=== PATIENT | male | born 1950 | race Caucasian/White ===

== ENCOUNTER 2018-11-27 13:23 | Emergency (ER) | payer MEDICARE, OTHER ==
[~2018-11-27] VITALS: Ht 195.6 cm; Wt 84.8 kg
[~2018-11-27 13:23] MED LIST: AMLO10TA4 PO; CHOL500050 PO; DOCU-109 PO; GLUC1CAP48 PO; LEVE500T56 PO; METO1TAB11 PO; MULT-245 PO; NAPR-683 PO; OLAN10VI2 IM; OMEP20CA5 PO; PHEN100C PO; POLY17PO5 PO; SIMV20TA PO; TRIA1TAB2 PO
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
[2018-11-27 13:53] LABS: BASO % 1 % (0-3); EOS # 0.1 x10^3/uL (0.0-0.7); EOS % 2 % (0-3); HEMATOCRIT 37.1 % (39.0-53.0); HEMOGLOBIN 12.7 g/dL (13.0-17.5); LYMPH # 1.7 x10^3/uL (1.0-4.8); LYMPH % 28 % (24-48); MEAN CORPUSCULAR HEMOGLOBIN 33 pg (25-35); MEAN CORPUSCULAR HGB CONC 34 g/dL (31-37); MEAN CORPUSCULAR VOLUME 96 fL (79-100); MONO # 0.6 x10^3/uL (0.0-1.1); MONO % 9 % (0-9); NEUT # 3.8 x10^3uL (1.8-7.7); NEUT % 61 % (31-73); PLATELET COUNT 105 x10^3/uL (140-400); RED BLOOD COUNT 3.88 x10^6/uL (4.30-5.70); RED CELL DISTRIBUTION WIDTH 15.5 % (11.5-14.5); WHITE BLOOD COUNT 6.3 x10^3/uL (4.0-11.0)
--- NOTE | 2018-11-27 14:11 | RAD ---
CT Head W/O Contrast: History: Agitation, pt cant straighten head up do to injury Comparison: August 24, 2013 Axial images were obtained without contrast. There is moderate diffuse atrophy. There is no mass effect, extraaxial fluid collections or hydrocephalus. There is no focal loss of lucero-white matter distinction to suggest acute ischemia, i.e. stroke. Impression: No acute findings. RS Compliance Statement: One or more of the following individualized dose reduction techniques were utilized for this examination: 1. Automated exposure control 2. Adjustment of the mA and/or kV according to patient size 3. Use of iterative reconstruction technique Electronically signed by: Leonel Medellin III, MD (11/27/2018 2:08 PM) [facility]
[2018-11-27 14:17] LABS: ALBUMIN 3.3 g/dL (3.4-5.0); ALBUMIN/GLOBULIN RATIO 0.8 (1.0-1.7); CALCIUM 8.5 mg/dL (8.5-10.1); CREATININE 1.1 mg/dL (0.7-1.3); GFR 66.2; MAGNESIUM 1.8 mg/dL (1.8-2.4); POTASSIUM 4.5 mmol/L (3.5-5.1); TOTAL BILIRUBIN 0.3 mg/dL (0.2-1.0); TOTAL PROTEIN 7.4 g/dL (6.4-8.2)
[2018-11-27 15:15] LABS: BACTERIA,URINE 0 /HPF (0-FEW); BILIRUBIN,URINE NEG (NEG); CLARITY,URINE HAZY; COLOR,URINE STRAW; GLUCOSE,URINE NEG (NEG); NITRITE,URINE NEG (NEG); RBC,URINE 0 /HPF (0-2); UROBILINOGEN,URINE 0.2 mg/dL (0.2 mg/dL)
[2018-11-27 15:16] LABS: SQUAMOUS EPITHELIAL CELL,UR OCC /LPF
[2018-11-27] MEDS ORDERED: CIPROFLOXACIN HCL 500 MG TABLET PO ONE (15:30)
[2018-11-27] MEDS ORDERED: IV NORMAL SALINE 50ML 50 ML ONE (15:39)
[2018-11-27] MEDS ORDERED: cefTRIAXone SODIUM 1 GM VIAL ONE (15:39)
[2018-11-27] MEDS ORDERED: IV NORMAL SALINE 500ML 500 ML IV ONE (15:45)
[2018-11-27 16:00] VITALS: BP 150/97
[2018-11-27] MEDS ORDERED: CIPR250T30 PO (16:15)
--- NOTE | 2018-11-30 12:17 | EKG ---
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
[2019-03-02] MEDS ORDERED: BUME2TAB PO (17:47)
== END 2018-11-27 16:53 | disposition home or self-care (01) ==
LOC: ER 13:23
DX: F91.8 Other conduct disorders (principal); N30.00 Acute cystitis without hematuria; E87.1 Hypo-osmolality and hyponatremia; F31.9 Bipolar disorder, unspecified; K21.9 Gastro-esophageal reflux disease without esophagitis; I10 Essential (primary) hypertension; E03.9 Hypothyroidism, unspecified; E05.90 Thyrotoxicosis, unspecified without thyrotoxic crisis or storm
CPT/HCPCS: 36415; 70450; 80053; 81001; 83605; 83735; 85025; 87086; 93005; 96365; 99284; J0696; J7040

== ENCOUNTER 2019-03-02 12:12 | Inpatient (IN) | payer MEDICARE, OTHER ==
[~2019-03-02] VITALS: Ht 182.9 cm; Wt 92.2 kg
[~2019-03-02 12:12] MED LIST changes: +CIPR250T30 PO
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
[2019-03-02 12:35] LABS: BASO # 0.1 x10^3/uL (0.0-0.2); BASO % 1 % (0-3); EOS # 0.2 x10^3/uL (0.0-0.7); EOS % 2 % (0-3); HEMATOCRIT 38.7 % (39.0-53.0); HEMOGLOBIN 13.2 g/dL (13.0-17.5); LYMPH # 2.1 x10^3/uL (1.0-4.8); LYMPH % 26 % (24-48); MEAN CORPUSCULAR HEMOGLOBIN 33 pg (25-35); MEAN CORPUSCULAR HGB CONC 34 g/dL (31-37); MEAN CORPUSCULAR VOLUME 96 fL (79-100); MONO # 0.9 x10^3/uL (0.0-1.1); MONO % 11 % (0-9); NEUT # 4.9 x10^3uL (1.8-7.7); NEUT % 60 % (31-73); PLATELET COUNT 121 x10^3/uL (140-400); RED BLOOD COUNT 4.02 x10^6/uL (4.30-5.70); RED CELL DISTRIBUTION WIDTH 14.3 % (11.5-14.5); WHITE BLOOD COUNT 8.2 x10^3/uL (4.0-11.0)
[2019-03-02 12:58] LABS: ACETAMIN < 2.0 mcg/mL (10-30); SALIC 1.1 mg/dL (2.8-20.0)
[2019-03-02 12:59] LABS: VAL ACID 120 mcg/mL (50-100)
[2019-03-02 13:01] LABS: ALBUMIN 3.3 g/dL (3.4-5.0); ALBUMIN/GLOBULIN RATIO 0.7 (1.0-1.7); CALCIUM 9.6 mg/dL (8.5-10.1); CREATININE 1.1 mg/dL (0.7-1.3); GFR 66.2; POTASSIUM 4.2 mmol/L (3.5-5.1); TOTAL BILIRUBIN 0.3 mg/dL (0.2-1.0); TOTAL PROTEIN 7.8 g/dL (6.4-8.2)
[2019-03-02 13:22] LABS: BILIRUBIN,URINE NEG (NEG); CLARITY,URINE HAZY; COLOR,URINE YELLOW; GLUCOSE,URINE NEG (NEG)
[2019-03-02 13:23] LABS: BACTERIA,URINE MOD /HPF (0-FEW); NITRITE,URINE NEG (NEG); RBC,URINE 0 /HPF (0-2); UROBILINOGEN,URINE 0.2 mg/dL (0.2 mg/dL)
[2019-03-02] MEDS ORDERED: cefTRIAXone SODIUM 1 GM VIAL ONE (13:34)
[2019-03-02] MEDS ORDERED: IV NORMAL SALINE 50ML 50 ML ONE (13:35)
--- NOTE | 2019-03-02 13:48 | RAD ---
Examination: Bilateral Lower Extremity Venous Doppler Ultrasound History: Bilateral lower extremity edema Comparison: None Procedure: Madrid scale, color flow 2D and spectal waveform analysis images are obtained with and without compression in the area of the common femoral vein, superficial femoral vein - femoral vein junction, main femoral vein (superficial femoral vein) and popliteal vein. Veins of the proximal calf are also imaged. Findings: There is normal duplex flow, color flow and compressibility of all visualized vein segments. No evidence of deep venous thrombus is present. There is a 3.2 cm cystic structure identified in the right popliteal fossa probably a cyst. The right peroneal vein is not well-visualized. Impression: 1. No evidence of deep venous thrombosis in the visualized bilateral lower extremity. 2. 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 Electronically signed by: Yanick Cameron MD (03/02/2019 1:46 PM) [place] [id number]
--- NOTE | 2019-03-02 14:10 | EKG ---
[address] [address] Test Date: 2019-03-02 Test Time: 12:37:07 Pat Name: JANINE SANTIAGO Department: Room: Gender: M Medical Care Evaluation Specialist: : 1950 Requested By: TABATHA DOE Order Number: [id number] Reading MD: Gurpreet Moreon Measurements Intervals Browns Rate: 68 P: 7 PA: 186 QRS: 2 QRSD: 80 T: 1 QT: 384 QTc: 409 Interpretive Statements SINUS RHYTHM R-S TRANSITION ZONE IN V LEADS DISPLACED TO THE RIGHT NO SPECIFIC ECG ABNORMALITIES RI6.01 Compared to ECG 11/27/2018 13:43:19 No significant changes Electronically Signed On 03-25-2019 16:45:42 CDT by Gurpreet Moreno
[2019-03-02] MEDS ORDERED: BISACODYL TAB 5 MG TABLET.DR. PO PRN (16:00)
[2019-03-02] MEDS ORDERED: ACETAMINOPHEN 325 MG TABLET PO PRN (16:00)
[2019-03-02] MEDS ORDERED: MAGNESIUM HYDROXIDE 2,400 MG/30 ML ORAL.SUSP. PO PRN (16:00)
[2019-03-02] MEDS ORDERED: SENNOSIDES 8.6 MG TABLET PO PRN (16:00)
[2019-03-02 16:41] VITALS: BP 112/72
[2019-03-02] MEDS ORDERED: TAMS0.4C97 PO (17:47)
[2019-03-02] MEDS ORDERED: ASPI-630 PO (17:47)
[2019-03-02] MEDS ORDERED: BUME2TAB3 PO (17:47)
[2019-03-02] MEDS ORDERED: CALC-56 PO (17:47)
[2019-03-02] MEDS ORDERED: ACET325T9 PO (17:47)
[2019-03-02] MEDS ORDERED: TRAM50TA PO (17:47)
[2019-03-02] MEDS ORDERED: SENN-80 PO (17:47)
[2019-03-02] MEDS ORDERED: MAGN2400 PO (17:47)
[2019-03-02] MEDS ORDERED: AMOX1TAB61 PO (17:47)
[2019-03-02] MEDS ORDERED: DIVA500T17 PO ×2 (17:47)
[2019-03-02] MEDS ORDERED: BISA5TAB4 PO (17:47)
[2019-03-02] MEDS ORDERED: BENZ1TAB5 PO (17:47)
[2019-03-02] MEDS ORDERED: LEVO125T5 PO (17:47)
[2019-03-02] MEDS ORDERED: LEVE500T56 PO (17:47)
[2019-03-02] MEDS ORDERED: METO-239 PO (17:47)
[2019-03-02] MEDS ORDERED: POTA20TA84 PO (17:47)
[2019-03-02] MEDS ORDERED: OLAN10TA3 PO (17:47)
[2019-03-02] MEDS ORDERED: METHYL SALICYLATE/MENTHOL TOPICAL OINTMENT 29GM TUBE. TP PRN (18:00)
[2019-03-02] MEDS ORDERED: MAG HYDROX/AL HYDROX/SIMETH 30 ML ORAL.SUSP PO PRN (18:00)
[2019-03-02] MEDS: SIMVASTATIN 20 MG TABLET PO SCH (20:32)
[2019-03-02] MEDS: AMOXICILLIN/K CLAV 875/125MG TABLET. PO SCH (20:33)
[2019-03-02] MEDS: POTASSIUM CHLORIDE 20 MEQ TABLET.ER. PO SCH (20:33)
[2019-03-02] MEDS: traMADol 50 MG TABLET PO SCH (20:33)
[2019-03-02] MEDS: BENZTROPINE MESYLATE 1 MG TABLET PO SCH (20:33)
[2019-03-02] MEDS: levETIRAcetam 500 MG TABLET PO SCH (20:34)
[2019-03-02] MEDS ORDERED: DIVALPROEX ER 500 MG TAB.ER.24H PO SCH (21:00)
--- NOTE | 2019-03-02 22:36 | PDOC ---
Exam Note: Venkat Note: Please also refer to the separate dictated note~for this date of service dictated separately. Discussed the patient with Nursing staff reviewed the chart.~Reviewed interim history and current functioning. Reviewed vital signs,~Labs/ Radiology~and current medications noted below. Continue current treatment with the changes noted in the dictated addendum note Assessment: Vital Signs: Vital Signs Date Time Temp Pulse Resp B/P (MAP) Pulse Ox O2 Delivery O2 Flow Rate FiO2 03/02/19 21:33 18 96 03/02/19 16:41 97.7 70 112/72 (85) 03/02/19 14:00 Room Air Labs: Laboratory Tests Test 03/02/19 12:20 White Blood Count 8.2 x10^3/uL (4.0-11.0) Red Blood Count 4.02 x10^6/uL (4.30-5.70) L Hemoglobin 13.2 g/dL (13.0-17.5) Hematocrit 38.7 % (39.0-53.0) L Mean Corpuscular Volume 96 fL (79-100) Mean Corpuscular Hemoglobin 33 pg (25-35) Mean Corpuscular Hemoglobin Concent 34 g/dL (31-37) Red Cell Distribution Width 14.3 % (11.5-14.5) Platelet Count 121 x10^3/uL (140-400) L Neutrophils (%) (Auto) 60 % (31-73) Lymphocytes (%) (Auto) 26 % (24-48) Monocytes (%) (Auto) 11 % (0-9) H Eosinophils (%) (Auto) 2 % (0-3) Basophils (%) (Auto) 1 % (0-3) Neutrophils # (Auto) 4.9 x10^3uL (1.8-7.7) Lymphocytes # (Auto) 2.1 x10^3/uL (1.0-4.8) Monocytes # (Auto) 0.9 x10^3/uL (0.0-1.1) Eosinophils # (Auto) 0.2 x10^3/uL (0.0-0.7) Basophils # (Auto) 0.1 x10^3/uL (0.0-0.2) Urine Collection Type Unknown Urine Color Yellow Urine Clarity Hazy Urine pH 6.5 Urine Specific [place] 1.010 Urine Protein Neg (NEG-TRACE) Urine Glucose (UA) Neg mg/dL (NEG) Urine Ketones (Stick) Neg mg/dL (NEG) Urine Blood Trace (NEG) Urine Nitrite Neg (NEG) Urine Bilirubin Neg (NEG) Urine Urobilinogen Dipstick 0.2 mg/dL (0.2 mg/dL) Urine Leukocyte Esterase Mod (NEG) Urine RBC 0 /HPF (0-2) Urine WBC 5-10 /HPF (0-4) Urine Squamous Epithelial Cells None /LPF Urine Bacteria Mod /HPF (0-FEW) Sodium Level 142 mmol/L (136-145) Potassium Level 4.2 mmol/L (3.5-5.1) Chloride Level 103 mmol/L (98-107) Carbon Dioxide Level 31 mmol/L (21-32) Anion Gap 8 (6-14) Blood Urea Nitrogen 20 mg/dL (8-26) Creatinine 1.1 mg/dL (0.7-1.3) Estimated GFR (Cockcroft-Gault) 66.2 BUN/Creatinine Ratio 18 (6-20) Glucose Level 80 mg/dL (70-99) Calcium Level 9.6 mg/dL (8.5-10.1) Magnesium Level 2.0 mg/dL (1.8-2.4) Total Bilirubin 0.3 mg/dL (0.2-1.0) Aspartate Amino Transferase (AST) 30 U/L (15-37) Alanine Aminotransferase (ALT) 29 U/L (16-63) Alkaline Phosphatase 66 U/L (46-116) Creatine Kinase 105 U/L (39-308) Creatine Kinase MB (Mass) 4.4 ng/mL (0.0-3.6) H Creatine Kinase MB Relative Index 4.2 % (0-4) H Troponin I Quantitative < 0.017 ng/mL (0-0.055) Total Protein 7.8 g/dL (6.4-8.2) Albumin 3.3 g/dL (3.4-5.0) L Albumin/Globulin Ratio 0.7 (1.0-1.7) L Salicylates Level 1.1 mg/dL (2.8-20.0) L Salicylate Last Dose Date Unk Salicylate Last Dose Time Unk Acetaminophen Level < 2.0 mcg/mL (10-30) L Acetaminophen Last Dose Date Unk Acetaminophen Last Dose Time Unk Valproic Acid Level 120 mcg/mL (50-100) H Valproic Acid Last Dose Date Unk Valproic Acid Last Dose Time Unk Current Medications: Meds: Current Medications Ceftriaxone Sodium 1 gm/ Sodium Chloride 50 ml @ 100 mls/hr 1X ONCE IV Last administered on 03/02/19at 13:37; Start 03/02/19 at 13:45; Stop 03/02/19 at 14:14; Status DC Ceftriaxone Sodium (Rocephin) 1 gm STK-MED ONCE .ROUTE ; Start 03/02/19 at 13:34; Stop 03/02/19 at 13:35; Status DC Sodium Chloride 50 ml @ As Directed STK-MED ONCE .ROUTE ; Start 03/02/19 at 13:35; Stop 03/02/19 at 13:36; Status DC Aspirin (Children'S Aspirin) 81 mg DAILYWBKFT PO ; Start 03/03/19 at 08:00 Amoxicillin/ Clavulanate Potassium (Augmentin 875/ 125mg) 1 tab BID PO Last administered on 03/02/19at 20:33; Start 03/02/19 at 21:00; Stop 03/11/19 at 22:00 Benztropine Mesylate (Cogentin) 1 mg BID PO Last administered on 03/02/19at 20:33; Start 03/02/19 at 21:00 Bisacodyl (Dulcolax Tab) 5 mg PRN DAILY PRN PO CONSTIPATION; Start 03/02/19 at 16:00 Bumetanide (Bumex) 2 mg DAILY PO ; Start 03/03/19 at 09:00 Divalproex Sodium (Depakote Er) 1,000 mg QHS PO Last administered on 03/02/19at 20:34; Start 03/02/19 at 21:00 Divalproex Sodium (Depakote Er) 1,500 mg DAILY PO ; Start 03/03/19 at 09:00 Levothyroxine Sodium (Synthroid) 125 mcg DAILY06 PO ; Start 03/03/19 at 06:00 Metoprolol Succinate (Toprol Xl) 25 mg DAILY PO ; Start 03/03/19 at 09:00 Magnesium Hydroxide (Milk Of Magnesia) 2,400 mg PRN DAILY PRN PO CONSTIPATION; Start 03/02/19 at 16:00 Calcium/Vitamin D (Oscal D 500mg/ 200uts) 1 tab DAILY PO ; Start 03/03/19 at 09:00; Stop 03/03/19 at 09:00; Status DC Potassium Chloride (Klor-Con) 20 meq BID PO Last administered on 03/02/19at 20:33; Start 03/02/19 at 21:00 Sennosides (Senna) 8.6 mg PRN DAILY PRN PO CONSTIPATION; Start 03/02/19 at 16:00 Tamsulosin HCl (Flomax) 0.4 mg DAILY PO ; Start 03/03/19 at 09:00 Tramadol HCl (Ultram) 50 mg BID PO Last administered on 03/02/19at 20:33; Start 03/02/19 at 21:00 Acetaminophen (Tylenol) 650 mg PRN Q6HRS PRN PO PAIN / TEMP; Start 03/02/19 at 16:00 Olanzapine (ZyPREXA) 10 mg DAILY PO ; Start 03/03/19 at 09:00 Docusate Sodium (Colace) 100 mg DAILY PO ; Start 03/03/19 at 09:00 Levetiracetam (Keppra) 500 mg BID PO Last administered on 03/02/19at 20:34; Start 03/02/19 at 21:00 Multivitamins/ Calcium (Thera-M Plus) 1 tab DAILY PO ; Start 03/03/19 at 09:00 Polyethylene Glycol (miraLAX) 17 gm DAILY PO ; Start 03/03/19 at 09:00 Simvastatin (Zocor) 20 mg HS PO Last administered on 03/02/19at 20:32; Start 03/02/19 at 21:00 Calcium/Vitamin D (Oscal D 500mg/ 200uts) 2.5 tab DAILY PO ; Start 03/03/19 at 09:00 Multi-Ingredient Ointment (Analgesic [place]) 1 altagracia PRN QID PRN TP MUSCLE PAIN; Start 03/02/19 at 18:00 Al Hydroxide/Mg Hydroxide (Mylanta Plus Xs) 15 ml PRN AFTMEALHC PRN PO DYSPEPSIA; Start 03/02/19 at 18:00 Active Scripts Active Reported Zyprexa (Olanzapine) 10 Mg Tablet 1 Tab PO DAILY Tylenol (Acetaminophen) 325 Mg Tablet 2 Tab PO PRN Q6HRS PRN Tramadol Hcl (Tramadol HCl) 50 Mg Tablet 50 Mg PO BID PRN Flomax (Tamsulosin Hcl) 0.4 Mg Cap.er.24h 1 Cap PO DAILY Senna (Sennosides) 8.6 Mg Tablet 8.6 Mg PO DAILY K-Tab ER (Potassium Chloride) 20 Meq Tablet.er 20 Meq PO BID Calcium 500 + Vit D 200 Caplet (Calcium Carbonate/Vitamin D3) 1 Each Tablet 2.5 Each PO DAILY Milk Of Magnesia (Magnesium Hydroxide) 2,400 Mg/10 Ml Oral.susp 2,400 Mg PO DAILY Metoprolol Succinate ( Xl ) (Metoprolol Succinate) 25 Mg Tab.er.24h 1 Tab PO DAILY Levothyroxine Sodium 125 Mcg Tablet 1 Tab PO DAILY06 Keppra (Levetiracetam) 500 Mg Tablet 1 Tab PO DAILY Divalproex Sodium Er (Divalproex Sodium) 500 Mg Tab.er.24h 3 Tab PO DAILY Divalproex Sodium Er (Divalproex Sodium) 500 Mg Tab.er.24h 2 Tab PO HS Bumetanide 2 Mg Tablet 2 Mg PO DAILY Bisacodyl 5 Mg Tablet.dr 5 Mg PO PRN DAILY PRN Benztropine Mesylate 1 Mg Tablet 1 Tab PO BID Augmentin 875-125 Tablet (Amoxicillin/Potassium Clav) 1 Each Tablet 1 Tab PO BID Aspirin 81 Mg Tab.chew 81 Mg PO DAILY Zocor (Simvastatin) 20 Mg Tablet 20 Mg PO HS Multi Vitamin Daily (Multivitamin) 1 Each Tablet 1 Each PO DAILY Miralax (Polyethylene Glycol 3350) 17 Gm Powd.pack 17 Gm PO DAILY Keppra (Levetiracetam) 500 Mg Tablet 500 Mg PO BID Colace (Docusate Sodium) 100 Mg Capsule 100 Mg PO DAILY I have reviewed the current psychotropics carefully including drug interactions. Risk benefit ratio favors no change other than as noted in my dictated progress note. AISHA MONZON MD Mar 02, 2019 22:36
[2019-03-03] MEDS: traZODone 50 MG TABLET. PO PRN (02:59)
[2019-03-03] MEDS: LEVOTHYROXINE 125 MCG TABLET PO SCH (05:52)
[2019-03-03 05:59] VITALS: BP 105/68
[2019-03-03 07:32] LABS: VAL ACID 84 mcg/mL (50-100)
[2019-03-03] MEDS ORDERED: CALCIUM CARB/VIT D3 500/200 TABLET PO SCH (09:00)
[2019-03-03] MEDS ORDERED: OLANZapine 10 MG TABLET PO SCH (09:00)
[2019-03-03] MEDS ORDERED: DIVALPROEX ER 500 MG TAB.ER.24H PO SCH (09:00)
[2019-03-03] MEDS: levETIRAcetam 500 MG TABLET PO SCH ×2 (09:36→19:24)
[2019-03-03] MEDS: AMOXICILLIN/K CLAV 875/125MG TABLET. PO SCH ×2 (09:36→19:23)
[2019-03-03] MEDS: BENZTROPINE MESYLATE 1 MG TABLET PO SCH ×2 (09:36→19:23)
[2019-03-03] MEDS: POTASSIUM CHLORIDE 20 MEQ TABLET.ER. PO SCH ×2 (09:36→19:24)
[2019-03-03] MEDS: MULTIVITAMIN with MINERAL TABLET. PO SCH (09:42)
[2019-03-03] MEDS: ASPIRIN 81 MG TAB.CHEW PO SCH (09:42)
[2019-03-03] MEDS: DOCUSATE SODIUM 100 MG CAPSULE PO SCH (09:42)
[2019-03-03] MEDS: TAMSULOSIN 0.4 MG CAP.ER.24H. PO SCH (09:42)
[2019-03-03] MEDS: CALCIUM CARB/VIT D3 500/200 TABLET PO SCH (09:43)
[2019-03-03] MEDS: METOPROLOL SUCC 24HR ER 25 MG TAB.ER.24H. PO SCH (09:45)
[2019-03-03] MEDS: POLYETHYLENE GLYCOL 3350 17 GM PACKET. PO SCH (09:46)
[2019-03-03] MEDS: BUMETANIDE 1 MG TABLET PO SCH (09:54)
[2019-03-03] MEDS: traMADol 50 MG TABLET PO SCH ×2 (09:54→19:24)
--- NOTE | 2019-03-03 10:44 | RAD ---
CT HEAD WO CONTRAST Clinical indications: Altered mental status. COMPARISON: November 27, 2018. Technique: Noncontrast axial cross sectional scanning of the head was performed. PQRS compliance Statement One or more of the following individualized dose reduction techniques were utilized for this study: 1. Automated exposure control 2. Adjustment of the mA and/or kV according to patient size 3. Use of iterative reconstruction technique Findings: No acute intracranial hemorrhage or midline shift or mass-effect or hydrocephalus or extra-axial fluid collection is seen. No new focal hypodense area or sulci effacement is seen to indicate an acute infarct or edema radiographically. No skull fracture or pneumocephalus is seen. No opacification of the mastoid sinuses or the paranasal sinuses is seen. The maxillary sinuses are not completely seen in this study. Impression: No acute intracranial abnormality is seen. Electronically signed by: Vijay Mendoza MD (03/03/2019 10:41 AM) [id number]
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
[2019-03-03 15:43] VITALS: BP 105/66
[2019-03-03 17:19] LABS: THYROID STIM HORMONE (TSH) 3.21 uIU/mL (0.358-3.740)
[2019-03-03] MEDS: SIMVASTATIN 20 MG TABLET PO SCH (19:23)
[2019-03-03] MEDS: MIRTAZAPINE 7.5 MG TABLET. PO SCH (20:45)
[2019-03-03] MEDS: LACTOBACILLUS RHAMNOSUS GG 1 CAPSULE. PO SCH (20:45)
[2019-03-03] MEDS: DIVALPROEX 125 MG CAP.SPRINK PO SCH (20:45)
--- NOTE | 2019-03-03 22:47 | PDOC ---
Exam Note: Venkat Note: Please also refer to the separate dictated note~for this date of service dictated separately.~Patient seen individually. Discussed the patient with Nursing staff reviewed the chart.~Reviewed interim history and current functioning. Reviewed vital signs,~Labs/ Radiology~and current medications noted below. Continue current treatment with the changes noted in the dictated addendum note Assessment: Vital Signs: Vital Signs Date Time Temp Pulse Resp B/P (MAP) Pulse Ox O2 Delivery O2 Flow Rate FiO2 03/03/19 19:24 18 95 03/03/19 15:43 97.4 68 105/66 (79) 03/03/19 11:00 Room Air I&O Intake and Output0 03/03/19 07:00 Intake Total 0 ml Balance 0 ml Intake Oral 0 ml Labs: Laboratory Tests Test 03/03/19 06:48 Iron Level 44 ug/dL (65-175) L Total Iron Binding Capacity 239 ug/dL (250-450) L Iron Saturation 18 % (15-34) Triglycerides Level 78 mg/dL (0-150) Cholesterol Level 87 mg/dL (0-200) LDL Cholesterol, Calculated 42 mg/dL (0-100) VLDL Cholesterol, Calculated 15 mg/dL (0-40) Non-HDL Cholesterol Calculated 57 mg/dL (0-129) HDL Cholesterol 30 mg/dL (40-60) L Cholesterol/HDL Ratio 2.0 25-Hydroxy Vitamin D Total 36.0 ng/mL (30-100) Thyroid Stimulating Hormone (TSH) 3.210 uIU/mL (0.358-3.740) Valproic Acid Level 84 mcg/mL (50-100) Valproic Acid Last Dose Date 03/02/19 Valproic Acid Last Dose Time 0900 Treponema pallidum Antibody Nonreactive (Nonreactive) Current Medications: Meds: Current Medications Ceftriaxone Sodium 1 gm/ Sodium Chloride 50 ml @ 100 mls/hr 1X ONCE IV Last administered on 03/02/19at 13:37; Start 03/02/19 at 13:45; Stop 03/02/19 at 14:14; Status DC Ceftriaxone Sodium (Rocephin) 1 gm STK-MED ONCE .ROUTE ; Start 03/02/19 at 13:34; Stop 03/02/19 at 13:35; Status DC Sodium Chloride 50 ml @ As Directed STK-MED ONCE .ROUTE ; Start 03/02/19 at 13:35; Stop 03/02/19 at 13:36; Status DC Aspirin (Children'S Aspirin) 81 mg DAILYWBKFT PO Last administered on 03/03/19at 09:42; Start 03/03/19 at 08:00 Amoxicillin/ Clavulanate Potassium (Augmentin 875/ 125mg) 1 tab BID PO Last administered on 03/03/19at 19:23; Start 03/02/19 at 21:00; Stop 03/11/19 at 22:00 Benztropine Mesylate (Cogentin) 1 mg BID PO Last administered on 03/03/19at 19:23; Start 03/02/19 at 21:00 Bisacodyl (Dulcolax Tab) 5 mg PRN DAILY PRN PO CONSTIPATION; Start 03/02/19 at 16:00 Bumetanide (Bumex) 2 mg DAILY PO Last administered on 03/03/19at 09:54; Start 03/03/19 at 09:00 Divalproex Sodium (Depakote Er) 1,000 mg QHS PO Last administered on 03/02/19at 20:34; Start 03/02/19 at 21:00; Stop 03/03/19 at 10:16; Status DC Divalproex Sodium (Depakote Er) 1,500 mg DAILY PO ; Start 03/03/19 at 09:00; Stop 03/03/19 at 10:16; Status DC Levothyroxine Sodium (Synthroid) 125 mcg DAILY06 PO Last administered on 03/03/19at 05:52; Start 03/03/19 at 06:00 Metoprolol Succinate (Toprol Xl) 25 mg DAILY PO Last administered on 03/03/19at 09:45; Start 03/03/19 at 09:00 Magnesium Hydroxide (Milk Of Magnesia) 2,400 mg PRN DAILY PRN PO CONSTIPATION; Start 03/02/19 at 16:00 Calcium/Vitamin D (Oscal D 500mg/ 200uts) 1 tab DAILY PO ; Start 03/03/19 at 09:00; Stop 03/03/19 at 09:00; Status DC Potassium Chloride (Klor-Con) 20 meq BID PO Last administered on 03/03/19at 19:24; Start 03/02/19 at 21:00 Sennosides (Senna) 8.6 mg PRN DAILY PRN PO CONSTIPATION; Start 03/02/19 at 16:00 Tamsulosin HCl (Flomax) 0.4 mg DAILY PO Last administered on 03/03/19 09:42; Start 03/03/19 at 09:00 Tramadol HCl (Ultram) 50 mg BID PO Last administered on 03/03/19 19:24; Start 03/02/19 at 21:00 Acetaminophen (Tylenol) 650 mg PRN Q6HRS PRN PO PAIN / TEMP; Start 03/02/19 at 16:00 Olanzapine (ZyPREXA) 10 mg DAILY PO Last administered on 03/03/19 09:45; Start 03/03/19 at 09:00; Stop 03/03/19 at 11:05; Status DC Docusate Sodium (Colace) 100 mg DAILY PO Last administered on 03/03/19 09:42; Start 03/03/19 at 09:00 Levetiracetam (Keppra) 500 mg BID PO Last administered on 03/03/19 19:24; Start 03/02/19 at 21:00 Multivitamins/ Calcium (Thera-M Plus) 1 tab DAILY PO Last administered on 03/03/19 09:42; Start 03/03/19 at 09:00 Polyethylene Glycol (miraLAX) 17 gm DAILY PO Last administered on 03/03/19 09:46; Start 03/03/19 at 09:00 Simvastatin (Zocor) 20 mg HS PO Last administered on 03/03/19 19:23; Start at 21:00 Calcium/Vitamin D (Oscal D 500mg/ 200uts) 2.5 tab DAILY PO Last administered on 03/03/19 09:43; Start 03/03/19 at 09:00 Multi-Ingredient Ointment (Analgesic [place]) 1 altagracia PRN QID PRN TP MUSCLE PAIN; Start 03/02/19 at 18:00 Al Hydroxide/Mg Hydroxide (Mylanta Plus Xs) 15 ml PRN AFTMEALHC PRN PO DYSPEPSIA; Start 03/02/19 at 18:00 Trazodone HCl (Desyrel) 50 mg PRN QHS PRN PO INSOMNIA, MAY REPEAT X1 Last administered on 6/6/19at 02:59; Start 03/03/19 at 02:45 Divalproex Sodium (Depakote Sprinkles) 1,000 mg DAILY PO ; Start 03/04/19 at 09:00 Divalproex Sodium (Depakote Sprinkles) 1,500 mg HS PO Last administered on 03/03/19at 20:45; Start 03/03/19 at 21:00 Olanzapine (ZyPREXA) 12.5 mg DAILY PO ; Start 03/04/19 at 09:00 Lactobacillus Rhamnosus (Culturelle) 1 cap BID PO Last administered on 03/03/19at 20:45; Start 03/03/19 at 21:00 Mirtazapine (Remeron) 7.5 mg QHS PO Last administered on 03/03/19at 20:45; Start 03/03/19 at 21:00 Active Scripts Active Reported Zyprexa (Olanzapine) 10 Mg Tablet 1 Tab PO DAILY Tylenol (Acetaminophen) 325 Mg Tablet 2 Tab PO PRN Q6HRS PRN Tramadol Hcl (Tramadol HCl) 50 Mg Tablet 50 Mg PO BID PRN Flomax (Tamsulosin Hcl) 0.4 Mg Cap.er.24h 1 Cap PO DAILY Senna (Sennosides) 8.6 Mg Tablet 8.6 Mg PO DAILY K-Tab ER (Potassium Chloride) 20 Meq Tablet.er 20 Meq PO BID Calcium 500 + Vit D 200 Caplet (Calcium Carbonate/Vitamin D3) 1 Each Tablet 2.5 Each PO DAILY Milk Of Magnesia (Magnesium Hydroxide) 2,400 Mg/10 Ml Oral.susp 2,400 Mg PO DAILY Metoprolol Succinate ( Xl ) (Metoprolol Succinate) 25 Mg Tab.er.24h 1 Tab PO DAILY Levothyroxine Sodium 125 Mcg Tablet 1 Tab PO DAILY06 Keppra (Levetiracetam) 500 Mg Tablet 1 Tab PO DAILY Divalproex Sodium Er (Divalproex Sodium) 500 Mg Tab.er.24h 3 Tab PO DAILY Divalproex Sodium Er (Divalproex Sodium) 500 Mg Tab.er.24h 2 Tab PO HS Bumetanide 2 Mg Tablet 2 Mg PO DAILY Bisacodyl 5 Mg Tablet.dr 5 Mg PO PRN DAILY PRN Benztropine Mesylate 1 Mg Tablet 1 Tab PO BID Augmentin 875-125 Tablet (Amoxicillin/Potassium Clav) 1 Each Tablet 1 Tab PO BID Aspirin 81 Mg Tab.chew 81 Mg PO DAILY Zocor (Simvastatin) 20 Mg Tablet 20 Mg PO HS Multi Vitamin Daily (Multivitamin) 1 Each Tablet 1 Each PO DAILY Miralax (Polyethylene Glycol 3350) 17 Gm Powd.pack 17 Gm PO DAILY Keppra (Levetiracetam) 500 Mg Tablet 500 Mg PO BID Colace (Docusate Sodium) 100 Mg Capsule 100 Mg PO DAILY I have reviewed the current psychotropics carefully including drug interactions. Risk benefit ratio favors no change other than as noted in my dictated progress note. Diagnosis: Problems: (1) Bipolar affective disorder, currently manic, severe, with psychosis (2) Bipolar affective, mixed, sev w/ psych (3) Schizoaffective disorder, bipolar type (4) Anxiety disorder (5) Impulse control disorder (6) Psychosis, atypical (7) Mild cognitive impairment AISHA MONZON MD Mar 03, 2019 22:47
[2019-03-04 01:15] LABS: THYROXINE 5.4 ug/dL (4.5-12.0)
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
[2019-03-04 06:16] VITALS: BP 137/77
[2019-03-04] MEDS: LEVOTHYROXINE 125 MCG TABLET PO SCH (06:16)
[2019-03-04] MEDS: POLYETHYLENE GLYCOL 3350 17 GM PACKET. PO SCH (09:19)
[2019-03-04] MEDS: AMOXICILLIN/K CLAV 875/125MG TABLET. PO SCH ×2 (09:25→20:23)
[2019-03-04] MEDS: DOCUSATE SODIUM 100 MG CAPSULE PO SCH (09:25)
[2019-03-04] MEDS: BUMETANIDE 1 MG TABLET PO SCH (09:25)
[2019-03-04] MEDS: BENZTROPINE MESYLATE 1 MG TABLET PO SCH ×2 (09:26→20:23)
[2019-03-04] MEDS: POTASSIUM CHLORIDE 20 MEQ TABLET.ER. PO SCH ×2 (09:27→20:23)
[2019-03-04] MEDS: CALCIUM CARB/VIT D3 500/200 TABLET PO SCH (09:28)
[2019-03-04] MEDS: MULTIVITAMIN with MINERAL TABLET. PO SCH (09:28)
[2019-03-04] MEDS: levETIRAcetam 500 MG TABLET PO SCH ×2 (09:28→20:23)
[2019-03-04] MEDS: ASPIRIN 81 MG TAB.CHEW PO SCH (09:29)
[2019-03-04] MEDS: LACTOBACILLUS RHAMNOSUS GG 1 CAPSULE. PO SCH ×2 (09:29→20:23)
[2019-03-04] MEDS: METOPROLOL SUCC 24HR ER 25 MG TAB.ER.24H. PO SCH (09:29)
[2019-03-04] MEDS: TAMSULOSIN 0.4 MG CAP.ER.24H. PO SCH (09:29)
[2019-03-04] MEDS: DIVALPROEX 125 MG CAP.SPRINK PO SCH ×2 (09:30→20:24)
[2019-03-04] MEDS: OLANZapine 10 MG TABLET PO SCH (09:35)
[2019-03-04] MEDS: traMADol 50 MG TABLET PO SCH ×2 (09:36→20:24)
[2019-03-04 11:11] LABS: HEMOGLOBIN A1C 5.4 % (4.8-5.6)
[2019-03-04 16:11] VITALS: BP 100/68
[2019-03-04] MEDS: SIMVASTATIN 20 MG TABLET PO SCH (20:23)
[2019-03-04] MEDS: MIRTAZAPINE 7.5 MG TABLET. PO SCH (20:23)
--- NOTE | 2019-03-04 22:26 | PDOC ---
Exam Note: Venkat Note: Please also refer to the separate dictated note~for this date of service dictated separately.~Patient seen individually. Discussed the patient with Nursing staff reviewed the chart.~Reviewed interim history and current functioning. Reviewed vital signs,~Labs/ Radiology~and current medications noted below. Continue current treatment with the changes noted in the dictated addendum note Assessment: Vital Signs: Vital Signs Date Time Temp Pulse Resp B/P (MAP) Pulse Ox O2 Delivery O2 Flow Rate FiO2 03/04/19 20:24 18 95 03/04/19 16:11 98.2 60 100/68 (79) Room Air I&O Intake and Output 03/04/19 07:00 Intake Total 800 ml Balance 800 ml Intake Oral 800 ml Current Medications: Meds: Current Medications Ceftriaxone Sodium 1 gm/ Sodium Chloride 50 ml @ 100 mls/hr 1X ONCE IV Last a dministered on 03/02/19at 13:37; Start 03/02/19 at 13:45; Stop 03/02/19 at 14:14; Status DC Ceftriaxone Sodium (Rocephin) 1 gm STK-MED ONCE .ROUTE ; Start 03/02/19 at 13:34; Stop 03/02/19 at 13:35; Status DC Sodium Chloride 50 ml @ As Directed STK-MED ONCE .ROUTE ; Start 03/02/19 at 13:35; Stop 03/02/19 at 13:36; Status DC Aspirin (Children'S Aspirin) 81 mg DAILYWBKFT PO Last administered on 03/04/19at 09:29; Start 03/03/19 at 08:00 Amoxicillin/ Clavulanate Potassium (Augmentin 875/ 125mg) 1 tab BID PO Last administered on 03/04/19at 20:23; Start 03/02/19 at 21:00; Stop 03/11/19 at 22:00 Benztropine Mesylate (Cogentin) 1 mg BID PO Last administered on 03/04/19at 20:23; Start 03/02/19 at 21:00 Bisacodyl (Dulcolax Tab) 5 mg PRN DAILY PRN PO CONSTIPATION; Start 03/02/19 at 16:00 Bumetanide (Bumex) 2 mg DAILY PO Last administered on 03/04/19at 09:25; Start 03/03/19 at 09:00 Divalproex Sodium (Depakote Er) 1,000 mg QHS PO Last administered on 03/02/19at 20:34; Start 03/02/19 at 21:00; Stop 03/03/19 at 10:16; Status DC Divalproex Sodium (Depakote Er) 1,500 mg DAILY PO ; Start 03/03/19 at 09:00; Stop 03/03/19 at 10:16; Status DC Levothyroxine Sodium (Synthroid) 125 mcg DAILY06 PO Last administered on 03/04/19 06:16; Start 03/03/19 at 06:00 Metoprolol Succinate (Toprol Xl) 25 mg DAILY PO Last administered on 03/04/19 09:29; Start 03/03/19 at 09:00 Magnesium Hydroxide (Milk Of Magnesia) 2,400 mg PRN DAILY PRN PO CONSTIPATION; Start 03/02/19 at 16:00 Calcium/Vitamin D (Oscal D 500mg/ 200uts) 1 tab DAILY PO ; Start 03/03/19 at 09:00; Stop 03/03/19 at 09:00; Status DC Potassium Chloride (Klor-Con) 20 meq BID PO Last administered on 03/04/19 20:23; Start 03/02/19 at 21:00 Sennosides (Senna) 8.6 mg PRN DAILY PRN PO CONSTIPATION; Start 03/02/19 at 16:00 Tamsulosin HCl (Flomax) 0.4 mg DAILY PO Last administered on 03/04/19 09:29; Start 03/03/19 at 09:00 Tramadol HCl (Ultram) 50 mg BID PO Last administered on 03/04/19 20:24; Start 03/02/19 at 21:00 Acetaminophen (Tylenol) 650 mg PRN Q6HRS PRN PO PAIN / TEMP; Start 03/02/19 at 16:00 Olanzapine (ZyPREXA) 10 mg DAILY PO Last administered on 03/03/19at 09:45; Start 03/03/19 at 09:00; Stop 03/03/19 at 11:05; Status DC Docusate Sodium (Colace) 100 mg DAILY PO Last administered on 03/04/19 09:25; Start 03/03/19 at 09:00 Levetiracetam (Keppra) 500 mg BID PO Last administered on 03/04/19 20:23; Start 03/02/19 at 21:00 Multivitamins/ Calcium (Thera-M Plus) 1 tab DAILY PO Last administered on 03/04/19 09:28; Start 03/03/19 at 09:00 Polyethylene Glycol (miraLAX) 17 gm DAILY PO Last administered on 03/04/19 09:1 9; Start 03/03/19 at 09:00 Simvastatin (Zocor) 20 mg HS PO Last administered on 03/04/19 20:23; Start 03/02/19 at 21:00 Calcium/Vitamin D (Oscal D 500mg/ 200uts) 2.5 tab DAILY PO Last administered on 03/04/19 09:28; Start 03/03/19 at 09:00 Multi-Ingredient Ointment (Analgesic [place]) 1 altagracia PRN QID PRN TP MUSCLE PAIN; Start 03/02/19 at 18:00 Al Hydroxide/Mg Hydroxide (Mylanta Plus Xs) 15 ml PRN AFTMEALHC PRN PO DYSPEPSIA; Start 03/02/19 at 18:00 Trazodone HCl (Desyrel) 50 mg PRN QHS PRN PO INSOMNIA, MAY REPEAT X1 Last administered on 03/03/19 02:59; Start 03/03/19 at 02:45 Divalproex Sodium (Depakote Sprinkles) 1,000 mg DAILY PO Last administered on 03/04/19 09:30; Start 03/04/19 at 09:00 Divalproex Sodium (Depakote Sprinkles) 1,500 mg HS PO Last administered on 03/04/19 20:24; Start 03/03/19 at 21:00 Olanzapine (ZyPREXA) 12.5 mg DAILY PO Last administered on 03/04/19 09:35; Start 03/04/19 at 09:00 Lactobacillus Rhamnosus (Culturelle) 1 cap BID PO Last administered on 03/04/19 20:23; Start 03/03/19 at 21:00 Mirtazapine (Remeron) 7.5 mg QHS PO Last administered on 03/04/19 20:23; Start 03/03/19 at 21:00 Active Scripts Active Reported Zyprexa (Olanzapine) 10 Mg Tablet 1 Tab PO DAILY Tylenol (Acetaminophen) 325 Mg Tablet 2 Tab PO PRN Q6HRS PRN Tramadol Hcl (Tramadol HCl) 50 Mg Tablet 50 Mg PO BID PRN Flomax (Tamsulosin Hcl) 0.4 Mg Cap.er.24h 1 Cap PO DAILY Senna (Sennosides) 8.6 Mg Tablet 8.6 Mg PO DAILY K-Tab ER (Potassium Chloride) 20 Meq Tablet.er 20 Meq PO BID Calcium 500 + Vit D 200 Caplet (Calcium Carbonate/Vitamin D3) 1 Each Tablet 2.5 Each PO DAILY Milk Of Magnesia (Magnesium Hydroxide) 2,400 Mg/10 Ml Oral.susp 2,400 Mg PO DAILY Metoprolol Succinate ( Xl ) (Metoprolol Succinate) 25 Mg Tab.er.24h 1 Tab PO DAILY Levothyroxine Sodium 125 Mcg Tablet 1 Tab PO DAILY06 Keppra (Levetiracetam) 500 Mg Tablet 1 Tab PO DAILY Divalproex Sodium Er (Divalproex Sodium) 500 Mg Tab.er.24h 3 Tab PO DAILY Divalproex Sodium Er (Divalproex Sodium) 500 Mg Tab.er.24h 2 Tab PO HS Bumetanide 2 Mg Tablet 2 Mg PO DAILY Bisacodyl 5 Mg Tablet.dr 5 Mg PO PRN DAILY PRN Benztropine Mesylate 1 Mg Tablet 1 Tab PO BID Augmentin 875-125 Tablet (Amoxicillin/Potassium Clav) 1 Each Tablet 1 Tab PO BID Aspirin 81 Mg Tab.chew 81 Mg PO DAILY Zocor (Simvastatin) 20 Mg Tablet 20 Mg PO HS Multi Vitamin Daily (Multivitamin) 1 Each Tablet 1 Each PO DAILY Miralax (Polyethylene Glycol 3350) 17 Gm Powd.pack 17 Gm PO DAILY Keppra (Levetiracetam) 500 Mg Tablet 500 Mg PO BID Colace (Docusate Sodium) 100 Mg Capsule 100 Mg PO DAILY I have reviewed the current psychotropics carefully including drug interactions. Risk benefit ratio favors no change other than as noted in my dictated progress note. Diagnosis: Problems: (1) Bipolar affective disorder, currently manic, severe, with psychosis (2) Anxiety disorder (3) Bipolar affective, mixed, sev w/ psych (4) Schizoaffective disorder, bipolar type (5) Psychosis, atypical (6) Impulse control disorder (7) Mild cognitive impairment AISHA MONZON MD Mar 04, 2019 22:26
[2019-03-05 06:45] VITALS: BP 127/78
[2019-03-05] MEDS: LEVOTHYROXINE 125 MCG TABLET PO SCH (06:45)
[2019-03-05] MEDS: BENZTROPINE MESYLATE 1 MG TABLET PO SCH ×2 (09:29→20:54)
[2019-03-05] MEDS: AMOXICILLIN/K CLAV 875/125MG TABLET. PO SCH ×2 (09:29→20:55)
[2019-03-05] MEDS: POLYETHYLENE GLYCOL 3350 17 GM PACKET. PO SCH (09:29)
[2019-03-05] MEDS: BUMETANIDE 1 MG TABLET PO SCH (09:29)
[2019-03-05] MEDS: MULTIVITAMIN with MINERAL TABLET. PO SCH (09:30)
[2019-03-05] MEDS: LACTOBACILLUS RHAMNOSUS GG 1 CAPSULE. PO SCH ×2 (09:30→20:54)
[2019-03-05] MEDS: DIVALPROEX 125 MG CAP.SPRINK PO SCH ×2 (09:30→20:55)
[2019-03-05] MEDS: CALCIUM CARB/VIT D3 500/200 TABLET PO SCH (09:31)
[2019-03-05] MEDS: TAMSULOSIN 0.4 MG CAP.ER.24H. PO SCH (09:32)
[2019-03-05] MEDS: ASPIRIN 81 MG TAB.CHEW PO SCH (09:32)
[2019-03-05] MEDS: DOCUSATE SODIUM 100 MG CAPSULE PO SCH (09:35)
[2019-03-05] MEDS: METOPROLOL SUCC 24HR ER 25 MG TAB.ER.24H. PO SCH (09:35)
[2019-03-05] MEDS: levETIRAcetam 500 MG TABLET PO SCH ×2 (09:36→20:55)
[2019-03-05] MEDS: POTASSIUM CHLORIDE 20 MEQ TABLET.ER. PO SCH ×2 (09:36→20:54)
[2019-03-05] MEDS: traMADol 50 MG TABLET PO SCH ×2 (09:43→20:55)
[2019-03-05] MEDS: OLANZapine 10 MG TABLET PO SCH (09:45)
--- NOTE | 2019-03-05 15:05 | PN ---
DATE: 03/03/2019 PSYCHIATRIC PROGRESS NOTE This is a late entry, 03/03/2019, covers elements not covered in my initial note. SUBJECTIVE: I met with the patient in the evening, staffed at a treatment team meeting with the entire team in the morning. The patient continues to be somewhat anxious, hyper-jewish, always has a Bible around him. REVIEW OF SYSTEMS: Positive for some neck stiffness, but no CV, , pulmonary, eye system symptoms on review. MENTAL STATUS EXAM: Reasonably oriented. Speech is coherent, has some latency. Abstraction fair, computation impaired, language function intact, attention span short. Mood and affect are improved. He remains intermittently psychotic, hyperreligious, hypomanic. LABORATORY DATA: Reviewed. IMPRESSION: Bipolar 1 disorder, mixed with psychotic features, schizoaffective disorder, bipolar type, mixed with psychotic features. Rest unchanged. PLAN: Increase Zyprexa from 10 mg daily to 12.5 mg daily. Maintain Depakote at current dosage, and he remains on Keppra, Cogentin, trazodone as well. Make further adjustments as clinically indicated. Valproic acid level is therapeutic in the 80s. ADDENDUM Given the patient's ongoing insomnia and anxiety, we will go ahead and add Remeron 7.5 mg at bedtime. Maintain Cogentin, Depakote, Keppra along with Zyprexa, which has been increased and trazodone p.r.n. for at MAN Emiliano MONZON MD DR: DEYSI/lewis JOB#: [id number] / [id number]
[2019-03-05 16:07] VITALS: BP 114/58
--- NOTE | 2019-03-05 16:35 | PN ---
DATE: 03/04/2019 PSYCHIATRIC PROGRESS NOTE This late entry of 03/04/2019 covers elements not covered in my initial note. SUBJECTIVE: I met with the patient in the evening. The patient slept 7-1/4 hours previous night. Previous night, he was quite delusional, psychotic, believed he had leprosy. He was telling Dr. Jensen about this. Unable to be redirected. This has persisted during the day on 03/04/2019. He is religiously preoccupied, keeps a Bible with him as he did when I sat with him. He had a Bible right next to him on the sofa. Compliant with medications. REVIEW OF SYSTEMS: No CV, , pulmonary, eye system symptoms on review, does complain of some neck stiffness. He is on Cogentin for this. MENTAL STATUS EXAM: Oriented to himself and situation. Speech is coherent, has some latency. Abstraction fair, computation impaired, language function intact. Attention span short. Mood and affect, somewhat anxious, labile, but improved. Remains psychotic. LABORATORY DATA: Reviewed. IMPRESSION: Unchanged from initial note. PLAN: No change from initial note. Please increase Zyprexa to 12.5 mg at bedtime. AISHA MONZON MD DR: DEYSI/lewis JOB#: [id number] / [id number]
--- NOTE | 2019-03-05 20:42 | PDOC ---
Exam Note: Venkat Note: Please also refer to the separate dictated note~for this date of service dictated separately.~Patient seen individually. Discussed the patient with Nursing staff reviewed the chart.~Reviewed interim history and current functioning. Reviewed vital signs,~Labs/ Radiology~and current medications noted below. Continue current treatment with the changes noted in the dictated addendum note Assessment: Vital Signs: Vital Signs Date Time Temp Pulse Resp B/P (MAP) Pulse Ox O2 Delivery O2 Flow Rate FiO2 03/05/19 16:07 97.3 63 19 114/58 (76) 97 Room Air I&O Intake and Output 03/05/19 07:00 Intake Total 838 ml Balance 838 ml Intake Oral 838 ml Current Medications: Meds: Current Medications Ceftriaxone Sodium 1 gm/ Sodium Chloride 50 ml @ 100 mls/hr 1X ONCE IV Last administered on 03/02/19at 13:37; Start 03/02/19 at 13:45; Stop 03/02/19 at 14:14; Status DC Ceftriaxone Sodium (Rocephin) 1 gm STK-MED ONCE .ROUTE ; Start 03/02/19 at 13:34; Stop 03/02/19 at 13:35; Status DC Sodium Chloride 50 ml @ As Directed STK-MED ONCE .ROUTE ; Start 03/02/19 at 13:35; Stop 03/02/19 at 13:36; Status DC Aspirin (Children'S Aspirin) 81 mg DAILYWBKFT PO Last administered on 03/05/19at 09:32; Start 03/03/19 at 08:00 Amoxicillin/ Clavulanate Potassium (Augmentin 875/ 125mg) 1 tab BID PO Last administered on 03/05/19at 09:29; Start 03/02/19 at 21:00; Stop 03/11/19 at 22:00 Benztropine Mesylate (Cogentin) 1 mg BID PO Last administered on 03/05/19at 09 :29; Start 03/02/19 at 21:00 Bisacodyl (Dulcolax Tab) 5 mg PRN DAILY PRN PO CONSTIPATION; Start 03/02/19 at 16:00 Bumetanide (Bumex) 2 mg DAILY PO Last administered on 03/05/19at 09:29; Start 03/03/19 at 09:00 Divalproex Sodium (Depakote Er) 1,000 mg QHS PO Last administered on 03/02/19 20:34; Start 03/02/19 at 21:00; Stop 03/03/19 at 10:16; Status DC Divalproex Sodium (Depakote Er) 1,500 mg DAILY PO ; Start 03/03/19 at 09:00; Stop 03/03/19 at 10:16; Status DC Levothyroxine Sodium (Synthroid) 125 mcg DAILY06 PO Last administered on 03/05/19 06:45; Start 03/03/19 at 06:00 Metoprolol Succinate (Toprol Xl) 25 mg DAILY PO Last administered on 03/05/19 09:35; Start 03/03/19 at 09:00 Magnesium Hydroxide (Milk Of Magnesia) 2,400 mg PRN DAILY PRN PO CONSTIPATION; Start 03/02/19 at 16:00 Calcium/Vitamin D (Oscal D 500mg/ 200uts) 1 tab DAILY PO ; Start 03/03/19 at 09:00; Stop 03/03/19 at 09:00; Status DC Potassium Chloride (Klor-Con) 20 meq BID PO Last administered on 03/05/19 09:36; Start 03/02/19 at 21:00 Sennosides (Senna) 8.6 mg PRN DAILY PRN PO CONSTIPATION; Start 03/02/19 at 16:00 Tamsulosin HCl (Flomax) 0.4 mg DAILY PO Last administered on 03/05/19 09:32; Start 03/03/19 at 09:00 Tramadol HCl (Ultram) 50 mg BID PO Last administered on 03/05/19 09:43; Start 03/02/19 at 21:00 Acetaminophen (Tylenol) 650 mg PRN Q6HRS PRN PO PAIN / TEMP; Start 03/02/19 at 16:00 Olanzapine (ZyPREXA) 10 mg DAILY PO Last administered on 03/03/19 09:45; Start 03/03/19 at 09:00; Stop 03/03/19 at 11:05; Status DC Docusate Sodium (Colace) 100 mg DAILY PO Last administered on 03/05/19 09:35; Start 03/03/19 at 09:00 Levetiracetam (Keppra) 500 mg BID PO Last administered on 03/05/19 09:36; Start 03/02/19 at 21:00 Multivitamins/ Calcium (Thera-M Plus) 1 tab DAILY PO Last administered on 03/05/19 09:30; Start 03/03/19 at 09:00 Polyethylene Glycol (miraLAX) 17 gm DAILY PO Last administered on 03/05/19 09:29; Start 03/03/19 at 09:00 Simvastatin (Zocor) 20 mg HS PO Last administered on 03/04/19 20:23; Start 03/02/19 at 21:00 Calcium/Vitamin D (Oscal D 500mg/ 200uts) 2.5 tab DAILY PO Last administered on 03/05/19 09:31; Start 03/03/19 at 09:00 Multi-Ingredient Ointment (Analgesic [place]) 1 altagracia PRN QID PRN TP MUSCLE PAIN; Start 03/02/19 at 18:00 Al Hydroxide/Mg Hydroxide (Mylanta Plus Xs) 15 ml PRN AFTMEALHC PRN PO DYSPEPSIA; Start 03/02/19 at 18:00 Trazodone HCl (Desyrel) 50 mg PRN QHS PRN PO INSOMNIA, MAY REPEAT X1 Last administered on 03/03/19 02:59; Start 03/03/19 at 02:45 Divalproex Sodium (Depakote Sprinkles) 1,000 mg DAILY PO Last administered on 03/05/19 09:30; Start 03/04/19 at 09:00 Divalproex Sodium (Depakote Sprinkles) 1,500 mg HS PO Last administered on 03/04/19 20:24; Start 03/03/19 at 21:00 Olanzapine (ZyPREXA) 12.5 mg DAILY PO Last administered on 03/05/19 09:45; Start 03/04/19 at 09:00 Lactobacillus Rhamnosus (Culturelle) 1 cap BID PO Last administered on 03/05/19 09:30; Start 03/03/19 at 21:00 Mirtazapine (Remeron) 7.5 mg QHS PO Last administered on 03/04/19 20:23; Start 03/03/19 at 21:00 Active Scripts Active Reported Zyprexa (Olanzapine) 10 Mg Tablet 1 Tab PO DAILY Tylenol (Acetaminophen) 325 Mg Tablet 2 Tab PO PRN Q6HRS PRN Tramadol Hcl (Tramadol HCl) 50 Mg Tablet 50 Mg PO BID PRN Flomax (Tamsulosin Hcl) 0.4 Mg Cap.er.24h 1 Cap PO DAILY Senna (Sennosides) 8.6 Mg Tablet 8.6 Mg PO DAILY K-Tab ER (Potassium Chloride) 20 Meq Tablet.er 20 Meq PO BID Calcium 500 + Vit D 200 Caplet (Calcium Carbonate/Vitamin D3) 1 Each Tablet 2.5 Each PO DAILY Milk Of Magnesia (Magnesium Hydroxide) 2,400 Mg/10 Ml Oral.susp 2,400 Mg PO D AILY Metoprolol Succinate ( Xl ) (Metoprolol Succinate) 25 Mg Tab.er.24h 1 Tab PO DAILY Levothyroxine Sodium 125 Mcg Tablet 1 Tab PO DAILY06 Keppra (Levetiracetam) 500 Mg Tablet 1 Tab PO DAILY Divalproex Sodium Er (Divalproex Sodium) 500 Mg Tab.er.24h 3 Tab PO DAILY Divalproex Sodium Er (Divalproex Sodium) 500 Mg Tab.er.24h 2 Tab PO HS Bumetanide 2 Mg Tablet 2 Mg PO DAILY Bisacodyl 5 Mg Tablet.dr 5 Mg PO PRN DAILY PRN Benztropine Mesylate 1 Mg Tablet 1 Tab PO BID Augmentin 875-125 Tablet (Amoxicillin/Potassium Clav) 1 Each Tablet 1 Tab PO BID Aspirin 81 Mg Tab.chew 81 Mg PO DAILY Zocor (Simvastatin) 20 Mg Tablet 20 Mg PO HS Multi Vitamin Daily (Multivitamin) 1 Each Tablet 1 Each PO DAILY Miralax (Polyethylene Glycol 3350) 17 Gm Powd.pack 17 Gm PO DAILY Keppra (Levetiracetam) 500 Mg Tablet 500 Mg PO BID Colace (Docusate Sodium) 100 Mg Capsule 100 Mg PO DAILY I have reviewed the current psychotropics carefully including drug interactions. Risk benefit ratio favors no change other than as noted in my dictated progress note. 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
[2019-03-05] MEDS: SIMVASTATIN 20 MG TABLET PO SCH (20:54)
[2019-03-05] MEDS: MIRTAZAPINE 7.5 MG TABLET. PO SCH (20:55)
[2019-03-06] MEDS: LEVOTHYROXINE 125 MCG TABLET PO SCH (05:35)
[2019-03-06 05:59] VITALS: BP 106/67
[2019-03-06] MEDS: ASPIRIN 81 MG TAB.CHEW PO SCH (08:37)
[2019-03-06] MEDS: AMOXICILLIN/K CLAV 875/125MG TABLET. PO SCH ×2 (08:37→20:35)
[2019-03-06] MEDS: BENZTROPINE MESYLATE 1 MG TABLET PO SCH ×2 (08:38→20:35)
[2019-03-06] MEDS: TAMSULOSIN 0.4 MG CAP.ER.24H. PO SCH (08:38)
[2019-03-06] MEDS: DOCUSATE SODIUM 100 MG CAPSULE PO SCH (08:38)
[2019-03-06] MEDS: DIVALPROEX 125 MG CAP.SPRINK PO SCH ×2 (08:38→20:36)
[2019-03-06] MEDS: LACTOBACILLUS RHAMNOSUS GG 1 CAPSULE. PO SCH ×2 (08:38→20:35)
[2019-03-06] MEDS: levETIRAcetam 500 MG TABLET PO SCH ×2 (08:38→20:35)
[2019-03-06] MEDS: BUMETANIDE 1 MG TABLET PO SCH (08:38)
[2019-03-06] MEDS: POTASSIUM CHLORIDE 20 MEQ TABLET.ER. PO SCH ×2 (08:39→20:35)
[2019-03-06] MEDS: CALCIUM CARB/VIT D3 500/200 TABLET PO SCH (08:39)
[2019-03-06] MEDS: MULTIVITAMIN with MINERAL TABLET. PO SCH (08:39)
[2019-03-06] MEDS: POLYETHYLENE GLYCOL 3350 17 GM PACKET. PO SCH (08:39)
[2019-03-06] MEDS: METOPROLOL SUCC 24HR ER 25 MG TAB.ER.24H. PO SCH (08:40)
[2019-03-06] MEDS: traMADol 50 MG TABLET PO SCH ×2 (08:41→20:35)
[2019-03-06] MEDS: OLANZapine 10 MG TABLET PO SCH (08:43)
--- NOTE | 2019-03-06 12:32 | PN ---
DATE: 03/05/2019 PSYCHIATRIC PROGRESS NOTE This late entry 03/05/2019 covers elements not covered in my initial note. SUBJECTIVE: I met with the patient in the evening. The patient slept 5-1/2 hours previous night. He has been compliant, somewhat religiously preoccupied, pleasant, but compliant with his medications. REVIEW OF SYSTEMS: No CV, , pulmonary, eye system symptoms on review. Does complain of some neck stiffness, bent over to one side, unchanged from before. MENTAL STATUS EXAM: Reasonably oriented. Speech is coherent, abstraction fair, computation impaired, language function intact, attention span short. Mood and affect, still somewhat grandiose, but improved. No aggression noted. Valproic acid level therapeutic at 84. LABORATORY DATA: Reviewed. IMPRESSION: Unchanged from initial note. PLAN: No change from initial note. MAN Emiliano MONZON MD DR: DEYSI/lewis JOB#: [id number] / [id number]
[2019-03-06 15:48] VITALS: BP 102/69
[2019-03-06] MEDS: MIRTAZAPINE 7.5 MG TABLET. PO SCH (20:35)
[2019-03-06] MEDS: SIMVASTATIN 20 MG TABLET PO SCH (20:35)
--- NOTE | 2019-03-06 22:45 | PDOC ---
Exam Note: Venkat Note: Please also refer to the separate dictated note~for this date of service dictated separately.~Patient seen individually. Discussed the patient with Nursing staff reviewed the chart.~Reviewed interim history and current functioning. Reviewed vital signs,~Labs/ Radiology~and current medications noted below. Continue current treatment with the changes noted in the dictated addendum note Assessment: Vital Signs: Vital Signs Date Time Temp Pulse Resp B/P (MAP) Pulse Ox O2 Delivery O2 Flow Rate FiO2 03/06/19 22:13 95 03/06/19 15:48 97.0 62 20 102/69 (80) 03/05/19 16:07 Room Air I&O Intake and Output0 03/06/19 07:00 Intake Total 600 ml Balance 600 ml Intake Oral 600 ml # Bowel Movements 1 Current Medications: Meds: Current Medications Ceftriaxone Sodium 1 gm/ Sodium Chloride 50 ml @ 100 mls/hr 1X ONCE IV Last administered on 03/02/19at 13:37; Start 03/02/19 at 13:45; Stop 03/02/19 at 14:14; Status DC Ceftriaxone Sodium (Rocephin) 1 gm STK-MED ONCE .ROUTE ; Start 03/02/19 at 13:34; Stop 03/02/19 at 13:35; Status DC Sodium Chloride 50 ml @ As Directed STK-MED ONCE .ROUTE ; Start 03/02/19 at 13:35; Stop 03/02/19 at 13:36; Status DC Aspirin (Children'S Aspirin) 81 mg DAILYWBKFT PO Last administered on 03/06/19at 08:37; Start 03/03/19 at 08:00 Amoxicillin/ Clavulanate Potassium (Augmentin 875/ 125mg) 1 tab BID PO Last administered on 03/06/19at 20:35; Start 03/02/19 at 21:00; Stop 03/11/19 at 22:00 Benztropine Mesylate (Cogentin) 1 mg BID PO Last administered on 03/06/19at 20:35; Start 03/02/19 at 21:00 Bisacodyl (Dulcolax Tab) 5 mg PRN DAILY PRN PO CONSTIPATION; Start 03/02/19 at 16:00 Bumetanide (Bumex) 2 mg DAILY PO Last administered on 03/06/19at 08:38; Start 03/03/19 at 09:00 Divalproex Sodium (Depakote Er) 1,000 mg QHS PO Last administered on 03/02/19at 20:34; Start 03/02/19 at 21:00; Stop 03/03/19 at 10:16; Status DC Divalproex Sodium (Depakote Er) 1,500 mg DAILY PO ; Start 03/03/19 at 09:00; Stop 03/03/19 at 10:16; Status DC Levothyroxine Sodium (Synthroid) 125 mcg DAILY06 PO Last administered on 03/06/19at 05:35; Start 03/03/19 at 06:00 Metoprolol Succinate (Toprol Xl) 25 mg DAILY PO Last administered on 03/06/19at 08:40; Start 03/03/19 at 09:00 Magnesium Hydroxide (Milk Of Magnesia) 2,400 mg PRN DAILY PRN PO CONSTIPATION; Start 03/02/19 at 16:00 Calcium/Vitamin D (Oscal D 500mg/ 200uts) 1 tab DAILY PO ; Start 03/03/19 at 09:00; Stop 03/03/19 at 09:00; Status DC Potassium Chloride (Klor-Con) 20 meq BID PO Last administered on 03/06/19at 20:35; Start 03/02/19 at 21:00 Sennosides (Senna) 8.6 mg PRN DAILY PRN PO CONSTIPATION; Start 03/02/19 at 16:00 Tamsulosin HCl (Flomax) 0.4 mg DAILY PO Last administered on 03/06/19at 08:38; Start 03/03/19 at 09:00 Tramadol HCl (Ultram) 50 mg BID PO Last administered on 03/06/19at 20:35; Start 03/02/19 at 21:00 Acetaminophen (Tylenol) 650 mg PRN Q6HRS PRN PO PAIN / TEMP; Start 03/02/19 at 16:00 Olanzapine (ZyPREXA) 10 mg DAILY PO Last administered on 03/03/19at 09:45; Start 03/03/19 at 09:00; Stop 03/03/19 at 11:05; Status DC Docusate Sodium (Colace) 100 mg DAILY PO Last administered on 03/06/19at 08:38; Start 03/03/19 at 09:00 Levetiracetam (Keppra) 500 mg BID PO Last administered on 03/06/19 20:35; Start 03/02/19 at 21:00 Multivitamins/ Calcium (Thera-M Plus) 1 tab DAILY PO Last administered on 03/06/19 08:39; Start 03/03/19 at 09:00 Polyethylene Glycol (miraLAX) 17 gm DAILY PO Last administered on 03/06/19 08:39; Start 03/03/19 at 09:00 Simvastatin (Zocor) 20 mg HS PO Last administered on 03/06/19 20:35; Start 03/02/19 at 21:00 Calcium/Vitamin D (Oscal D 500mg/ 200uts) 2.5 tab DAILY PO Last administered on 03/06/19 08:39; Start 03/03/19 at 09:00 Multi-Ingredient Ointment (Analgesic [place]) 1 altagracia PRN QID PRN TP MUSCLE PAIN; Start 03/02/19 at 18:00 Al Hydroxide/Mg Hydroxide (Mylanta Plus Xs) 15 ml PRN AFTMEALHC PRN PO DYSPEPSIA; Start 03/02/19 at 18:00 Trazodone HCl (Desyrel) 50 mg PRN QHS PRN PO INSOMNIA, MAY REPEAT X1 Last administered on 03/03/19 02:59; Start 03/03/19 at 02:45 Divalproex Sodium (Depakote Sprinkles) 1,000 mg DAILY PO Last administered on 03/06/19 08:38; Start 03/04/19 at 09:00 Divalproex Sodium (Depakote Sprinkles) 1,500 mg HS PO Last administered on 03/06/19 20:36; Start 03/03/19 at 21:00 Olanzapine (ZyPREXA) 12.5 mg DAILY PO Last administered on 03/06/19 08:43; Start 03/04/19 at 09:00 Lactobacillus Rhamnosus (Culturelle) 1 cap BID PO Last administered on 03/06/19 20:35; Start 03/03/19 at 21:00 Mirtazapine (Remeron) 7.5 mg QHS PO Last administered on 03/06/19 20:35; Start 03/03/19 at 21:00 Active Scripts Active Reported Zyprexa (Olanzapine) 10 Mg Tablet 1 Tab PO DAILY Tylenol (Acetaminophen) 325 Mg Tablet 2 Tab PO PRN Q6HRS PRN Tramadol Hcl (Tramadol HCl) 50 Mg Tablet 50 Mg PO BID PRN Flomax (Tamsulosin Hcl) 0.4 Mg Cap.er.24h 1 Cap PO DAILY Senna (Sennosides) 8.6 Mg Tablet 8.6 Mg PO DAILY K-Tab ER (Potassium Chloride) 20 Meq Tablet.er 20 Meq PO BID Calcium 500 + Vit D 200 Caplet (Calcium Carbonate/Vitamin D3) 1 Each Tablet 2.5 Each PO DAILY Milk Of Magnesia (Magnesium Hydroxide) 2,400 Mg/10 Ml Oral.susp 2,400 Mg PO DAILY Metoprolol Succinate ( Xl ) (Metoprolol Succinate) 25 Mg Tab.er.24h 1 Tab PO DAILY Levothyroxine Sodium 125 Mcg Tablet 1 Tab PO DAILY06 Keppra (Levetiracetam) 500 Mg Tablet 1 Tab PO DAILY Divalproex Sodium Er (Divalproex Sodium) 500 Mg Tab.er.24h 3 Tab PO DAILY Divalproex Sodium Er (Divalproex Sodium) 500 Mg Tab.er.24h 2 Tab PO HS Bumetanide 2 Mg Tablet 2 Mg PO DAILY Bisacodyl 5 Mg Tablet.dr 5 Mg PO PRN DAILY PRN Benztropine Mesylate 1 Mg Tablet 1 Tab PO BID Augmentin 875-125 Tablet (Amoxicillin/Potassium Clav) 1 Each Tablet 1 Tab PO BID Aspirin 81 Mg Tab.chew 81 Mg PO DAILY Zocor (Simvastatin) 20 Mg Tablet 20 Mg PO HS Multi Vitamin Daily (Multivitamin) 1 Each Tablet 1 Each PO DAILY Miralax (Polyethylene Glycol 3350) 17 Gm Powd.pack 17 Gm PO DAILY Keppra (Levetiracetam) 500 Mg Tablet 500 Mg PO BID Colace (Docusate Sodium) 100 Mg Capsule 100 Mg PO DAILY I have reviewed the current psychotropics carefully including drug interactions. Risk benefit ratio favors no change other than as noted in my dictated progress note. Diagnosis: Problems: (1) Bipolar affective disorder, currently manic, severe, with psychosis (2) Anxiety disorder (3) Bipolar affective, mixed, sev w/ psych (4) Schizoaffective disorder, bipolar type (5) Psychosis, atypical (6) Impulse control disorder AISHA MONZON MD Mar 06, 2019 22:45
[2019-03-07] MEDS: LEVOTHYROXINE 125 MCG TABLET PO SCH (05:41)
[2019-03-07 05:57] VITALS: BP 112/69
[2019-03-07 07:29] LABS: BASO % 1 % (0-3); EOS # 0.1 x10^3/uL (0.0-0.7); EOS % 3 % (0-3); HEMATOCRIT 33.6 % (39.0-53.0); HEMOGLOBIN 11.4 g/dL (13.0-17.5); LYMPH % 44 % (24-48); MEAN CORPUSCULAR HEMOGLOBIN 33 pg (25-35); MEAN CORPUSCULAR HGB CONC 34 g/dL (31-37); MEAN CORPUSCULAR VOLUME 97 fL (79-100); MONO # 0.5 x10^3/uL (0.0-1.1); MONO % 11 % (0-9); NEUT # 1.9 x10^3uL (1.8-7.7); NEUT % 42 % (31-73); PLATELET COUNT 107 x10^3/uL (140-400); RED BLOOD COUNT 3.48 x10^6/uL (4.30-5.70); RED CELL DISTRIBUTION WIDTH 14.4 % (11.5-14.5); WHITE BLOOD COUNT 4.5 x10^3/uL (4.0-11.0)
[2019-03-07 07:46] LABS: ALBUMIN 2.8 g/dL (3.4-5.0); ALBUMIN/GLOBULIN RATIO 0.7 (1.0-1.7); CALCIUM 9.2 mg/dL (8.5-10.1); CREATININE 1.2 mg/dL (0.7-1.3); GFR 59.9; POTASSIUM 4.5 mmol/L (3.5-5.1); TOTAL BILIRUBIN 0.3 mg/dL (0.2-1.0); TOTAL PROTEIN 6.8 g/dL (6.4-8.2)
[2019-03-07] MEDS: ASPIRIN 81 MG TAB.CHEW PO SCH (08:29)
[2019-03-07] MEDS: AMOXICILLIN/K CLAV 875/125MG TABLET. PO SCH ×2 (08:29→19:39)
[2019-03-07] MEDS: POLYETHYLENE GLYCOL 3350 17 GM PACKET. PO SCH (08:30)
[2019-03-07] MEDS: levETIRAcetam 500 MG TABLET PO SCH ×2 (08:30→19:36)
[2019-03-07] MEDS: DOCUSATE SODIUM 100 MG CAPSULE PO SCH (08:30)
[2019-03-07] MEDS: DIVALPROEX 125 MG CAP.SPRINK PO SCH ×2 (08:30→19:37)
[2019-03-07] MEDS: TAMSULOSIN 0.4 MG CAP.ER.24H. PO SCH (08:30)
[2019-03-07] MEDS: LACTOBACILLUS RHAMNOSUS GG 1 CAPSULE. PO SCH ×2 (08:30→19:37)
[2019-03-07] MEDS: BENZTROPINE MESYLATE 1 MG TABLET PO SCH ×2 (08:30→19:37)
[2019-03-07] MEDS: POTASSIUM CHLORIDE 20 MEQ TABLET.ER. PO SCH ×2 (08:30→19:37)
[2019-03-07] MEDS: MULTIVITAMIN with MINERAL TABLET. PO SCH (08:31)
[2019-03-07] MEDS: METOPROLOL SUCC 24HR ER 25 MG TAB.ER.24H. PO SCH (08:31)
[2019-03-07] MEDS: CALCIUM CARB/VIT D3 500/200 TABLET PO SCH (08:31)
[2019-03-07] MEDS: OLANZapine 10 MG TABLET PO SCH (08:31)
[2019-03-07] MEDS: BUMETANIDE 1 MG TABLET PO SCH (08:34)
[2019-03-07] MEDS: traMADol 50 MG TABLET PO SCH ×2 (08:38→19:42)
--- NOTE | 2019-03-07 11:37 | PN ---
DATE: 03/06/2019 PSYCHIATRIC PROGRESS NOTE This late entry, 03/06/2019, covers elements not covered in my initial note. SUBJECTIVE: I met with the patient in the evening. The patient slept 8-1/4 hours previous night. He has been less hyper-congregational, but when I talked to him, he was convinced staffs were trying to hide his Bible and the Bible cover from him. He said they had taken it to be washed and not returned it despite his repeated request. He is referring to staff as being "incompetent." I processed this at some length with him individually to help improve his insight and improve his frustration tolerance. REVIEW OF SYSTEMS: Positive for some stiffness of his neck, which is nothing new, but no CV, , pulmonary, eye system symptoms on review. MENTAL STATUS EXAM: Oriented to himself and situation. Speech has some latency, coherent. He readily recognized me. Abstraction fair, computation somewhat impaired, language function intact, attention span short. Mood and affect at times withdrawn. No suicidal or homicidal ideation. LABORATORY DATA: Reviewed. IMPRESSION: Unchanged from initial note. PLAN: No change from initial note. MAN Emiliano MONZON MD DR: DEYSI/lewis JOB#: [id number] / [id number]
[2019-03-07 15:46] VITALS: BP 118/75
[2019-03-07] MEDS: MIRTAZAPINE 7.5 MG TABLET. PO SCH (19:36)
[2019-03-07] MEDS: SIMVASTATIN 20 MG TABLET PO SCH (19:37)
--- NOTE | 2019-03-07 22:37 | PDOC ---
Exam Note: Venkat Note: Please also refer to the separate dictated note~for this date of service dictated separately.~Patient seen individually. Discussed the patient with Nursing staff reviewed the chart.~Reviewed interim history and current functioning. Reviewed vital signs,~Labs/ Radiology~and current medications noted below. Continue current treatment with the changes noted in the dictated addendum note Assessment: Vital Signs: Vital Signs Date Time Temp Pulse Resp B/P (MAP) Pulse Ox O2 Delivery O2 Flow Rate FiO2 03/07/19 19:42 18 94 03/07/19 15:46 97.2 89 118/75 (89) 03/05/19 16:07 Room Air I&O Intake and Output 03/07/19 07:00 Intake Total 1180 ml Balance 1180 ml Intake Oral 1180 ml Labs: Laboratory Tests Test 03/07/19 06:52 White Blood Count 4.5 x10^3/uL (4.0-11.0) Red Blood Count 3.48 x10^6/uL (4.30-5.70) L Hemoglobin 11.4 g/dL (13.0-17.5) L Hematocrit 33.6 % (39.0-53.0) L Mean Corpuscular Volume 97 fL (79-100) Mean Corpuscular Hemoglobin 33 pg (25-35) Mean Corpuscular Hemoglobin Concent 34 g/dL (31-37) Red Cell Distribution Width 14.4 % (11.5-14.5) Platelet Count 107 x10^3/uL (140-400) L Neutrophils (%) (Auto) 42 % (31-73) Lymphocytes (%) (Auto) 44 % (24-48) Monocytes (%) (Auto) 11 % (0-9) H Eosinophils (%) (Auto) 3 % (0-3) Basophils (%) (Auto) 1 % (0-3) Neutrophils # (Auto) 1.9 x10^3uL (1.8-7.7) Lymphocytes # (Auto) 2.0 x10^3/uL (1.0-4.8) Monocytes # (Auto) 0.5 x10^3/uL (0.0-1.1) Eosinophils # (Auto) 0.1 x10^3/uL (0.0-0.7) Basophils # (Auto) 0.0 x10^3/uL (0.0-0.2) Sodium Level 144 mmol/L (136-145) Potassium Level 4.5 mmol/L (3.5-5.1) Chloride Level 108 mmol/L (98-107) H Carbon Dioxide Level 33 mmol/L (21-32) H Anion Gap 3 (6-14) L Blood Urea Nitrogen 27 mg/dL (8-26) H Creatinine 1.2 mg/dL (0.7-1.3) Estimated GFR (Cockcroft-Gault) 59.9 BUN/Creatinine Ratio 23 (6-20) H Glucose Level 75 mg/dL (70-99) Calcium Level 9.2 mg/dL (8.5-10.1) Total Bilirubin 0.3 mg/dL (0.2-1.0) Aspartate Amino Transferase (AST) 22 U/L (15-37) Alanine Aminotransferase (ALT) 21 U/L (16-63) Alkaline Phosphatase 52 U/L (46-116) Total Protein 6.8 g/dL (6.4-8.2) Albumin 2.8 g/dL (3.4-5.0) L Albumin/Globulin Ratio 0.7 (1.0-1.7) L Current Medications: Meds: Current Medications Ceftriaxone Sodium 1 gm/ Sodium Chloride 50 ml @ 100 mls/hr 1X ONCE IV Last administered on 03/02/19at 13:37; Start 03/02/19 at 13:45; Stop 03/02/19 at 14:14; Status DC Ceftriaxone Sodium (Rocephin) 1 gm STK-MED ONCE .ROUTE ; Start 03/02/19 at 13:34; Stop 03/02/19 at 13:35; Status DC Sodium Chloride 50 ml @ As Directed STK-MED ONCE .ROUTE ; Start 03/02/19 at 13:35; Stop 03/02/19 at 13:36; Status DC Aspirin (Children'S Aspirin) 81 mg DAILYWBKFT PO Last administered on 03/07/19at 08:29; Start 03/03/19 at 08:00 Amoxicillin/ Clavulanate Potassium (Augmentin 875/ 125mg) 1 tab BID PO Last administered on 03/07/19at 08:29; Start 03/02/19 at 21:00; Stop 03/11/19 at 22:00 Benztropine Mesylate (Cogentin) 1 mg BID PO Last administered on 03/07/19 19:37; Start 03/02/19 at 21:00 Bisacodyl (Dulcolax Tab) 5 mg PRN DAILY PRN PO CONSTIPATION; Start 03/02/19 at 16:00 Bumetanide (Bumex) 2 mg DAILY PO Last administered on 03/07/19 08:34; Start 03/03/19 at 09:00 Divalproex Sodium (Depakote Er) 1,000 mg QHS PO Last administered on 03/02/19 20:34; Start 03/02/19 at 21:00; Stop 03/03/19 at 10:16; Status DC Divalproex Sodium (Depakote Er) 1,500 mg DAILY PO ; Start 03/03/19 at 09:00; Stop 03/03/19 at 10:16; Status DC Levothyroxine Sodium (Synthroid) 125 mcg DAILY06 PO Last administered on 03/07/19at 05:41; Start 03/03/19 at 06:00 Metoprolol Succinate (Toprol Xl) 25 mg DAILY PO Last administered on 03/06/19at 08:40; Start 03/03/19 at 09:00 Magnesium Hydroxide (Milk Of Magnesia) 2,400 mg PRN DAILY PRN PO CONSTIPATION; Start 03/02/19 at 16:00 Calcium/Vitamin D (Oscal D 500mg/ 200uts) 1 tab DAILY PO ; Start 03/03/19 at 09:00; Stop 03/03/19 at 09:00; Status DC Potassium Chloride (Klor-Con) 20 meq BID PO Last administered on 03/07/19at 19:37; Start 03/02/19 at 21:00 Sennosides (Senna) 8.6 mg PRN DAILY PRN PO CONSTIPATION; Start 03/02/19 at 16:00 Tamsulosin HCl (Flomax) 0.4 mg DAILY PO Last administered on 03/07/19 08:30; Start 03/03/19 at 09:00 Tramadol HCl (Ultram) 50 mg BID PO Last administered on 03/07/19at 19:42; Start 03/02/19 at 21:00 Acetaminophen (Tylenol) 650 mg PRN Q6HRS PRN PO PAIN / TEMP; Start 03/02/19 at 16:00 Olanzapine (ZyPREXA) 10 mg DAILY PO Last administered on 03/03/19 09:45; Start 03/03/19 at 09:00; Stop 03/03/19 at 11:05; Status DC Docusate Sodium (Colace) 100 mg DAILY PO Last administered on 03/07/19 08:30; Start 03/03/19 at 09:00 Levetiracetam (Keppra) 500 mg BID PO Last administered on 03/07/19 19:36; Start 03/02/19 at 21:00 Multivitamins/ Calcium (Thera-M Plus) 1 tab DAILY PO Last administered on 03/07/19 08:31; Start 03/03/19 at 09:00 Polyethylene Glycol (miraLAX) 17 gm DAILY PO Last administered on 03/07/19 08:30; Start 03/03/19 at 09:00 Simvastatin (Zocor) 20 mg HS PO Last administered on 03/07/19 19:37; Start 03/02/19 at 21:00 Calcium/Vitamin D (Oscal D 500mg/ 200uts) 2.5 tab DAILY PO Last administered on 03/07/19 08:31; Start 03/03/19 at 09:00 Multi-Ingredient Ointment (Analgesic [place]) 1 altagracia PRN QID PRN TP MUSCLE PAIN; Start 03/02/19 at 18:00 Al Hydroxide/Mg Hydroxide (Mylanta Plus Xs) 15 ml PRN AFTMEALHC PRN PO DYSPEPSIA; Start 03/02/19 at 18:00 Trazodone HCl (Desyrel) 50 mg PRN QHS PRN PO INSOMNIA, MAY REPEAT X1 Last administered on 03/03/19 02:59; Start 03/03/19 at 02:45 Divalproex Sodium (Depakote Sprinkles) 1,000 mg DAILY PO Last administered on 03/07/19 08:30; Start 03/04/19 at 09:00 Divalproex Sodium (Depakote Sprinkles) 1,500 mg HS PO Last administered on 03/07/19 19:37; Start 03/03/19 at 21:00 Olanzapine (ZyPREXA) 12.5 mg DAILY PO Last administered on 03/07/19at 08:31; Start 03/04/19 at 09:00 Lactobacillus Rhamnosus (Culturelle) 1 cap BID PO Last administered on 03/07/19at 19:37; Start 03/03/19 at 21:00 Mirtazapine (Remeron) 7.5 mg QHS PO Last administered on 03/07/19at 19:36; Start 03/03/19 at 21:00 Active Scripts Active Reported Zyprexa (Olanzapine) 10 Mg Tablet 1 Tab PO DAILY Tylenol (Acetaminophen) 325 Mg Tablet 2 Tab PO PRN Q6HRS PRN Tramadol Hcl (Tramadol HCl) 50 Mg Tablet 50 Mg PO BID PRN Flomax (Tamsulosin Hcl) 0.4 Mg Cap.er.24h 1 Cap PO DAILY Senna (Sennosides) 8.6 Mg Tablet 8.6 Mg PO DAILY K-Tab ER (Potassium Chloride) 20 Meq Tablet.er 20 Meq PO BID Calcium 500 + Vit D 200 Caplet (Calcium Carbonate/Vitamin D3) 1 Each Tablet 2.5 Each PO DAILY Milk Of Magnesia (Magnesium Hydroxide) 2,400 Mg/10 Ml Oral.susp 2,400 Mg PO DAILY Metoprolol Succinate ( Xl ) (Metoprolol Succinate) 25 Mg Tab.er.24h 1 Tab PO DAILY Levothyroxine Sodium 125 Mcg Tablet 1 Tab PO DAILY06 Keppra (Levetiracetam) 500 Mg Tablet 1 Tab PO DAILY Divalproex Sodium Er (Divalproex Sodium) 500 Mg Tab.er.24h 3 Tab PO DAILY Divalproex Sodium Er (Divalproex Sodium) 500 Mg Tab.er.24h 2 Tab PO HS Bumetanide 2 Mg Tablet 2 Mg PO DAILY Bisacodyl 5 Mg Tablet.dr 5 Mg PO PRN DAILY PRN Benztropine Mesylate 1 Mg Tablet 1 Tab PO BID Augmentin 875-125 Tablet (Amoxicillin/Potassium Clav) 1 Each Tablet 1 Tab PO BID Aspirin 81 Mg Tab.chew 81 Mg PO DAILY Zocor (Simvastatin) 20 Mg Tablet 20 Mg PO HS Multi Vitamin Daily (Multivitamin) 1 Each Tablet 1 Each PO DAILY Miralax (Polyethylene Glycol 3350) 17 Gm Powd.pack 17 Gm PO DAILY Keppra (Levetiracetam) 500 Mg Tablet 500 Mg PO BID Colace (Docusate Sodium) 100 Mg Capsule 100 Mg PO DAILY I have reviewed the current psychotropics carefully including drug interactions. Risk benefit ratio favors no change other than as noted in my dictated progress note. Diagnosis: Problems: (1) Bipolar affective disorder, currently manic, severe, with psychosis (2) Anxiety disorder (3) Bipolar affective, mixed, sev w/ psych (4) Schizoaffective disorder, bipolar type (5) Psychosis, atypical (6) Impulse control disorder (7) Delusions (8) Mild cognitive impairment AISHA MONZON MD Mar 07, 2019 22:37
[2019-03-08 05:38] VITALS: BP 121/74
[2019-03-08] MEDS: LEVOTHYROXINE 125 MCG TABLET PO SCH (05:59)
[2019-03-08] MEDS: MULTIVITAMIN with MINERAL TABLET. PO SCH (08:22)
[2019-03-08] MEDS: ASPIRIN 81 MG TAB.CHEW PO SCH (08:22)
[2019-03-08] MEDS: TAMSULOSIN 0.4 MG CAP.ER.24H. PO SCH (08:22)
[2019-03-08] MEDS: BENZTROPINE MESYLATE 1 MG TABLET PO SCH ×2 (08:22→19:22)
[2019-03-08] MEDS: DOCUSATE SODIUM 100 MG CAPSULE PO SCH (08:23)
[2019-03-08] MEDS: POTASSIUM CHLORIDE 20 MEQ TABLET.ER. PO SCH ×2 (08:23→19:20)
[2019-03-08] MEDS: OLANZapine 10 MG TABLET PO SCH (08:23)
[2019-03-08] MEDS: levETIRAcetam 500 MG TABLET PO SCH ×2 (08:24→23:22)
[2019-03-08] MEDS: AMOXICILLIN/K CLAV 875/125MG TABLET. PO SCH (08:24)
[2019-03-08] MEDS: LACTOBACILLUS RHAMNOSUS GG 1 CAPSULE. PO SCH ×2 (08:24→19:20)
[2019-03-08] MEDS: METOPROLOL SUCC 24HR ER 25 MG TAB.ER.24H. PO SCH (08:24)
[2019-03-08] MEDS: CALCIUM CARB/VIT D3 500/200 TABLET PO SCH (08:24)
[2019-03-08] MEDS: DIVALPROEX 125 MG CAP.SPRINK PO SCH ×2 (08:25→19:21)
[2019-03-08] MEDS: BUMETANIDE 1 MG TABLET PO SCH (08:25)
[2019-03-08] MEDS: POLYETHYLENE GLYCOL 3350 17 GM PACKET. PO SCH (08:25)
[2019-03-08] MEDS: traMADol 50 MG TABLET PO SCH ×2 (08:26→19:24)
[2019-03-08 16:34] VITALS: BP 101/67
[2019-03-08] MEDS: SIMVASTATIN 20 MG TABLET PO SCH (19:19)
[2019-03-08] MEDS: MIRTAZAPINE 7.5 MG TABLET. PO SCH (19:20)
--- NOTE | 2019-03-08 22:43 | PDOC ---
Exam Note: Venkat Note: Please also refer to the separate dictated note~for this date of service dictated separately.~Patient seen individually. Discussed the patient with Nursing staff reviewed the chart.~Reviewed interim history and current functioning. Reviewed vital signs,~Labs/ Radiology~and current medications noted below. Continue current treatment with the changes noted in the dictated addendum note Assessment: Vital Signs: Vital Signs Date Time Temp Pulse Resp B/P (MAP) Pulse Ox O2 Delivery O2 Flow Rate FiO2 03/08/19 20:24 18 96 03/08/19 16:34 97.4 68 101/67 (78) 03/05/19 16:07 Room Air I&O Intake and Output 03/08/19 07:00 Intake Total 700 ml Balance 700 ml Intake Oral 700 ml Current Medications: Meds: Current Medications Ceftriaxone Sodium 1 gm/ Sodium Chloride 50 ml @ 100 mls/hr 1X ONCE IV Last administered on 03/02/19at 13:37; Start 03/02/19 at 13:45; Stop 03/02/19 at 14:14; Status DC Ceftriaxone Sodium (Rocephin) 1 gm STK-MED ONCE .ROUTE ; Start 03/02/19 at 13:34; Stop 03/02/19 at 13:35; Status DC Sodium Chloride 50 ml @ As Directed STK-MED ONCE .ROUTE ; Start 03/02/19 at 13:35; Stop 03/02/19 at 13:36; Status DC Aspirin (Children'S Aspirin) 81 mg DAILYWBKFT PO Last administered on 03/08/19at 08:22; Start 03/03/19 at 08:00 Amoxicillin/ Clavulanate Potassium (Augmentin 875/ 125mg) 1 tab BID PO Last administered on 03/08/19at 08:24; Start 03/02/19 at 21:00; Stop 03/08/19 at 18:28; Status DC Benztropine Mesylate (Cogentin) 1 mg BID PO Last administered on 03/08/19at 19:22; Start 03/02/19 at 21:00 Bisacodyl (Dulcolax Tab) 5 mg PRN DAILY PRN PO CONSTIPATION; Start 03/02/19 at 16:00 Bumetanide (Bumex) 2 mg DAILY PO Last administered on 03/08/19at 08:25; Start 03/03/19 at 09:00 Divalproex Sodium (Depakote Er) 1,000 mg QHS PO Last administered on 03/02/19at 20:34; Start 03/02/19 at 21:00; Stop 03/03/19 at 10:16; Status DC Divalproex Sodium (Depakote Er) 1,500 mg DAILY PO ; Start 03/03/19 at 09:00; Stop 03/03/19 at 10:16; Status DC Levothyroxine Sodium (Synthroid) 125 mcg DAILY06 PO Last administered on 03/08/19at 05:59; Start 03/03/19 at 06:00 Metoprolol Succinate (Toprol Xl) 25 mg DAILY PO Last administered on 03/08/19 08:24; Start 03/03/19 at 09:00 Magnesium Hydroxide (Milk Of Magnesia) 2,400 mg PRN DAILY PRN PO CONSTIPATION; Start 03/02/19 at 16:00 Calcium/Vitamin D (Oscal D 500mg/ 200uts) 1 tab DAILY PO ; Start 03/03/19 at 09:00; Stop 03/03/19 at 09:00; Status DC Potassium Chloride (Klor-Con) 20 meq BID PO Last administered on 03/08/19at 19:20; Start 03/02/19 at 21:00 Sennosides (Senna) 8.6 mg PRN DAILY PRN PO CONSTIPATION; Start 03/02/19 at 16:00 Tamsulosin HCl (Flomax) 0.4 mg DAILY PO Last administered on 03/08/19at 08:22; Start 03/03/19 at 09:00 Tramadol HCl (Ultram) 50 mg BID PO Last administered on 03/08/19at 19:24; Start 03/02/19 at 21:00 Acetaminophen (Tylenol) 650 mg PRN Q6HRS PRN PO PAIN / TEMP; Start 03/02/19 at 16:00 Olanzapine (ZyPREXA) 10 mg DAILY PO Last administered on 03/03/19at 09:45; Start 03/03/19 at 09:00; Stop 03/03/19 at 11:05; Status DC Docusate Sodium (Colace) 100 mg DAILY PO Last administered on 03/08/19at 08:23; Start 03/03/19 at 09:00 Levetiracetam (Keppra) 500 mg BID PO Last administered on 03/08/19 08:24; Start 03/02/19 at 21:00 Multivitamins/ Calcium (Thera-M Plus) 1 tab DAILY PO Last administered on 03/08/19 08:22; Start 03/03/19 at 09:00 Polyethylene Glycol (miraLAX) 17 gm DAILY PO Last administered on 03/08/19 08:25; Start 03/03/19 at 09:00 Simvastatin (Zocor) 20 mg HS PO Last administered on 03/08/19 19:19; Start 03/02/19 at 21:00 Calcium/Vitamin D (Oscal D 500mg/ 200uts) 2.5 tab DAILY PO Last administered on 03/08/19 08:24; Start 03/03/19 at 09:00 Multi-Ingredient Ointment (Analgesic [place]) 1 altagracia PRN QID PRN TP MUSCLE PAIN; Start 03/02/19 at 18:00 Al Hydroxide/Mg Hydroxide (Mylanta Plus Xs) 15 ml PRN AFTMEALHC PRN PO DYSPEPSIA; Start 03/02/19 at 18:00 Trazodone HCl (Desyrel) 50 mg PRN QHS PRN PO INSOMNIA, MAY REPEAT X1 Last administered on 03/03/19 02:59; Start 03/03/19 at 02:45 Divalproex Sodium (Depakote Sprinkles) 1,000 mg DAILY PO Last administered on 03/08/19 08:25; Start 03/04/19 at 09:00 Divalproex Sodium (Depakote Sprinkles) 1,500 mg HS PO Last administered on 03/08/19 19:21; Start 03/03/19 at 21:00 Olanzapine (ZyPREXA) 12.5 mg DAILY PO Last administered on 03/08/19 08:23; Start 03/04/19 at 09:00 Lactobacillus Rhamnosus (Culturelle) 1 cap BID PO Last administered on 03/08/19 19:20; Start 03/03/19 at 21:00 Mirtazapine (Remeron) 7.5 mg QHS PO Last administered on 03/08/19 19:20; Start 03/03/19 at 21:00 Active Scripts Active Reported Zyprexa (Olanzapine) 10 Mg Tablet 1 Tab PO DAILY Tylenol (Acetaminophen) 325 Mg Tablet 2 Tab PO PRN Q6HRS PRN Tramadol Hcl (Tramadol HCl) 50 Mg Tablet 50 Mg PO BID PRN Flomax (Tamsulosin Hcl) 0.4 Mg Cap.er.24h 1 Cap PO DAILY Senna (Sennosides) 8.6 Mg Tablet 8.6 Mg PO DAILY K-Tab ER (Potassium Chloride) 20 Meq Tablet.er 20 Meq PO BID Calcium 500 + Vit D 200 Caplet (Calcium Carbonate/Vitamin D3) 1 Each Tablet 2.5 Each PO DAILY Milk Of Magnesia (Magnesium Hydroxide) 2,400 Mg/10 Ml Oral.susp 2,400 Mg PO DAILY Metoprolol Succinate ( Xl ) (Metoprolol Succinate) 25 Mg Tab.er.24h 1 Tab PO DAILY Levothyroxine Sodium 125 Mcg Tablet 1 Tab PO DAILY06 Keppra (Levetiracetam) 500 Mg Tablet 1 Tab PO DAILY Divalproex Sodium Er (Divalproex Sodium) 500 Mg Tab.er.24h 3 Tab PO DAILY Divalproex Sodium Er (Divalproex Sodium) 500 Mg Tab.er.24h 2 Tab PO HS Bumetanide 2 Mg Tablet 2 Mg PO DAILY Bisacodyl 5 Mg Tablet.dr 5 Mg PO PRN DAILY PRN Benztropine Mesylate 1 Mg Tablet 1 Tab PO BID Augmentin 875-125 Tablet (Amoxicillin/Potassium Clav) 1 Each Tablet 1 Tab PO BID Aspirin 81 Mg Tab.chew 81 Mg PO DAILY Zocor (Simvastatin) 20 Mg Tablet 20 Mg PO HS Multi Vitamin Daily (Multivitamin) 1 Each Tablet 1 Each PO DAILY Miralax (Polyethylene Glycol 3350) 17 Gm Powd.pack 17 Gm PO DAILY Keppra (Levetiracetam) 500 Mg Tablet 500 Mg PO BID Colace (Docusate Sodium) 100 Mg Capsule 100 Mg PO DAILY I have reviewed the current psychotropics carefully including drug interactions. Risk benefit ratio favors no change other than as noted in my dictated progress note. Diagnosis: Problems: (1) Mild cognitive impairment (2) Delusions (3) Bipolar affective disorder, currently manic, severe, with psychosis (4) Bipolar affective, mixed, sev w/ psych (5) Anxiety disorder (6) Schizoaffective disorder, bipolar type (7) Psychosis, atypical (8) Impulse control disorder AISHA MONZON MD Mar 08, 2019 22:43
--- NOTE | 2019-03-08 23:50 | PN ---
DATE: 03/07/2019 PSYCHIATRIC PROGRESS NOTE This late entry 03/07/2019 covers elements not covered in my initial note. SUBJECTIVE: I met with the patient evening of 03/07/2019. The patient slept 8-1/2 hours previous night. Overall, he is doing better, but remains somewhat hyper-caodaism. BUN is 3. BUN and creatinine ratio 23. UA is positive for CRE and I will defer to Dr. Jensen. Overall, he has been walking in the hallways, anxious, but more redirectable and cooperative. REVIEW OF SYSTEMS: No CV, , pulmonary, eye system symptoms on review. He does have some stiffness of his neck, unchanged from before. MENTAL STATUS EXAM: Reasonably oriented. Speech has some latency, coherent. Abstraction fair, computation impaired, language function intact, attention span short. Mood and affect, less anxious and labile. LABORATORY DATA: Reviewed. IMPRESSION: Bipolar 1 disorder, mixed with psychotic features; anxiety disorder, unspecified. Rest unchanged. PLAN: Continue psychotropics from initial note. Valproic acid level therapeutic at 84. Adjust further as clinically indicated. MAN Emiliano MONZON MD DR: DEYSI/lewis JOB#: [id number] / [id number]
[2019-03-09 05:57] VITALS: BP 113/82
[2019-03-09] MEDS: LEVOTHYROXINE 125 MCG TABLET PO SCH (06:00)
[2019-03-09] MEDS: BENZTROPINE MESYLATE 1 MG TABLET PO SCH ×2 (08:05→19:31)
[2019-03-09] MEDS: DOCUSATE SODIUM 100 MG CAPSULE PO SCH (08:05)
[2019-03-09] MEDS: BUMETANIDE 1 MG TABLET PO SCH (08:05)
[2019-03-09] MEDS: ASPIRIN 81 MG TAB.CHEW PO SCH (08:05)
[2019-03-09] MEDS: LACTOBACILLUS RHAMNOSUS GG 1 CAPSULE. PO SCH ×2 (08:05→19:31)
[2019-03-09] MEDS: POLYETHYLENE GLYCOL 3350 17 GM PACKET. PO SCH (08:06)
[2019-03-09] MEDS: DIVALPROEX 125 MG CAP.SPRINK PO SCH ×2 (08:06→19:32)
[2019-03-09] MEDS: POTASSIUM CHLORIDE 20 MEQ TABLET.ER. PO SCH ×2 (08:06→19:31)
[2019-03-09] MEDS: levETIRAcetam 500 MG TABLET PO SCH ×2 (08:06→19:31)
[2019-03-09] MEDS: TAMSULOSIN 0.4 MG CAP.ER.24H. PO SCH (08:06)
[2019-03-09] MEDS: CALCIUM CARB/VIT D3 500/200 TABLET PO SCH (08:06)
[2019-03-09] MEDS: OLANZapine 10 MG TABLET PO SCH (08:07)
[2019-03-09] MEDS: METOPROLOL SUCC 24HR ER 25 MG TAB.ER.24H. PO SCH (08:07)
[2019-03-09] MEDS: MULTIVITAMIN with MINERAL TABLET. PO SCH (08:07)
[2019-03-09] MEDS: traMADol 50 MG TABLET PO SCH ×2 (08:10→19:34)
[2019-03-09 15:42] VITALS: BP 145/92
[2019-03-09] MEDS: SIMVASTATIN 20 MG TABLET PO SCH (19:31)
[2019-03-09] MEDS: MIRTAZAPINE 7.5 MG TABLET. PO SCH (19:35)
--- NOTE | 2019-03-09 23:01 | PDOC ---
Exam Note: Venkat Note: Please also refer to the separate dictated note~for this date of service dictated separately.~Patient seen individually. Discussed the patient with Nursing staff reviewed the chart.~Reviewed interim history and current functioning. Reviewed vital signs,~Labs/ Radiology~and current medications noted below. Continue current treatment with the changes noted in the dictated addendum note Assessment: Vital Signs: Vital Signs Date Time Temp Pulse Resp B/P (MAP) Pulse Ox O2 Delivery O2 Flow Rate FiO2 03/09/19 19:34 18 95 03/09/19 15:42 97.5 72 145/92 (109) 03/05/19 16:07 Room Air I&O Intake and Output 03/09/19 06:59 Intake Total 1080 ml Balance 1080 ml Intake Oral 1080 ml Current Medications: Meds: Current Medications Ceftriaxone Sodium 1 gm/ Sodium Chloride 50 ml @ 100 mls/hr 1X ONCE IV Last administered on 03/02/19at 13:37; Start 03/02/19 at 13:45; Stop 03/02/19 at 14:14; Status DC Ceftriaxone Sodium (Rocephin) 1 gm STK-MED ONCE .ROUTE ; Start 03/02/19 at 13:34; Stop 03/02/19 at 13:35; Status DC Sodium Chloride 50 ml @ As Directed STK-MED ONCE .ROUTE ; Start 03/02/19 at 13:35; Stop 03/02/19 at 13:36; Status DC Aspirin (Children'S Aspirin) 81 mg DAILYWBKFT PO Last administered on 03/09/19at 08:05; Start 03/03/19 at 08:00 Amoxicillin/ Clavulanate Potassium (Augmentin 875/ 125mg) 1 tab BID PO Last administered on 03/08/19at 08:24; Start 03/02/19 at 21:00; Stop 03/08/19 at 18:28; Status DC Benztropine Mesylate (Cogentin) 1 mg BID PO Last administered on 03/09/19at 19:31; Start 03/02/19 at 21:00 Bisacodyl (Dulcolax Tab) 5 mg PRN DAILY PRN PO CONSTIPATION; Start 03/02/19 at 16:00 Bumetanide (Bumex) 2 mg DAILY PO Last administered on 03/09/19at 08:05; Start 03/03/19 at 09:00 Divalproex Sodium (Depakote Er) 1,000 mg QHS PO Last administered on 03/02/19at 20:34; Start 03/02/19 at 21:00; Stop 03/03/19 at 10:16; Status DC Divalproex Sodium (Depakote Er) 1,500 mg DAILY PO ; Start 03/03/19 at 09:00; Stop 03/03/19 at 10:16; Status DC Levothyroxine Sodium (Synthroid) 125 mcg DAILY06 PO Last administered on 03/09/19at 06:00; Start 03/03/19 at 06:00 Metoprolol Succinate (Toprol Xl) 25 mg DAILY PO Last administered on 03/09/19 08:07; Start 03/03/19 at 09:00 Magnesium Hydroxide (Milk Of Magnesia) 2,400 mg PRN DAILY PRN PO CONSTIPATION; Start 03/02/19 at 16:00 Calcium/Vitamin D (Oscal D 500mg/ 200uts) 1 tab DAILY PO ; Start 03/03/19 at 09:00; Stop 03/03/19 at 09:00; Status DC Potassium Chloride (Klor-Con) 20 meq BID PO Last administered on 03/09/19at 19:31; Start 03/02/19 at 21:00 Sennosides (Senna) 8.6 mg PRN DAILY PRN PO CONSTIPATION; Start 03/02/19 at 16:00 Tamsulosin HCl (Flomax) 0.4 mg DAILY PO Last administered on 03/09/19at 08:06; Start 03/03/19 at 09:00 Tramadol HCl (Ultram) 50 mg BID PO Last administered on 03/09/19at 19:34; Start 03/02/19 at 21:00 Acetaminophen (Tylenol) 650 mg PRN Q6HRS PRN PO PAIN / TEMP; Start 03/02/19 at 16:00 Olanzapine (ZyPREXA) 10 mg DAILY PO Last administered on 03/03/19at 09:45; Start 03/03/19 at 09:00; Stop 03/03/19 at 11:05; Status DC Docusate Sodium (Colace) 100 mg DAILY PO Last administered on 03/09/19at 08:05; Start 03/03/19 at 09:00 Levetiracetam (Keppra) 500 mg BID PO Last administered on 03/09/19 19:31; Start 03/02/19 at 21:00 Multivitamins/ Calcium (Thera-M Plus) 1 tab DAILY PO Last administered on 03/09/19 08:07; Start 03/03/19 at 09:00 Polyethylene Glycol (miraLAX) 17 gm DAILY PO Last administered on 03/09/19 08:06; Start 03/03/19 at 09:00 Simvastatin (Zocor) 20 mg HS PO Last administered on 03/09/19 19:31; Start 03/02/19 at 21:00 Calcium/Vitamin D (Oscal D 500mg/ 200uts) 2.5 tab DAILY PO Last administered on 03/09/19 08:06; Start 03/03/19 at 09:00 Multi-Ingredient Ointment (Analgesic [place]) 1 altagracia PRN QID PRN TP MUSCLE PAIN; Start 03/02/19 at 18:00 Al Hydroxide/Mg Hydroxide (Mylanta Plus Xs) 15 ml PRN AFTMEALHC PRN PO DYSPEPSIA; Start 03/02/19 at 18:00 Trazodone HCl (Desyrel) 50 mg PRN QHS PRN PO INSOMNIA, MAY REPEAT X1 Last administered on 03/03/19 02:59; Start 03/03/19 at 02:45 Divalproex Sodium (Depakote Sprinkles) 1,000 mg DAILY PO Last administered on 03/09/19 08:06; Start 03/04/19 at 09:00 Divalproex Sodium (Depakote Sprinkles) 1,500 mg HS PO Last administered on 03/09/19 19:32; Start 03/03/19 at 21:00 Olanzapine (ZyPREXA) 12.5 mg DAILY PO Last administered on 03/09/19 08:07; Start 03/04/19 at 09:00 Lactobacillus Rhamnosus (Culturelle) 1 cap BID PO Last administered on 03/09/19 19:31; Start 03/03/19 at 21:00 Mirtazapine (Remeron) 7.5 mg QHS PO Last administered on 03/09/19 19:35; Start 03/03/19 at 21:00 Active Scripts Active Reported Zyprexa (Olanzapine) 10 Mg Tablet 1 Tab PO DAILY Tylenol (Acetaminophen) 325 Mg Tablet 2 Tab PO PRN Q6HRS PRN Tramadol Hcl (Tramadol HCl) 50 Mg Tablet 50 Mg PO BID PRN Flomax (Tamsulosin Hcl) 0.4 Mg Cap.er.24h 1 Cap PO DAILY Senna (Sennosides) 8.6 Mg Tablet 8.6 Mg PO DAILY K-Tab ER (Potassium Chloride) 20 Meq Tablet.er 20 Meq PO BID Calcium 500 + Vit D 200 Caplet (Calcium Carbonate/Vitamin D3) 1 Each Tablet 2.5 Each PO DAILY Milk Of Magnesia (Magnesium Hydroxide) 2,400 Mg/10 Ml Oral.susp 2,400 Mg PO DAILY Metoprolol Succinate ( Xl ) (Metoprolol Succinate) 25 Mg Tab.er.24h 1 Tab PO DAILY Levothyroxine Sodium 125 Mcg Tablet 1 Tab PO DAILY06 Keppra (Levetiracetam) 500 Mg Tablet 1 Tab PO DAILY Divalproex Sodium Er (Divalproex Sodium) 500 Mg Tab.er.24h 3 Tab PO DAILY Divalproex Sodium Er (Divalproex Sodium) 500 Mg Tab.er.24h 2 Tab PO HS Bumetanide 2 Mg Tablet 2 Mg PO DAILY Bisacodyl 5 Mg Tablet.dr 5 Mg PO PRN DAILY PRN Benztropine Mesylate 1 Mg Tablet 1 Tab PO BID Augmentin 875-125 Tablet (Amoxicillin/Potassium Clav) 1 Each Tablet 1 Tab PO BID Aspirin 81 Mg Tab.chew 81 Mg PO DAILY Zocor (Simvastatin) 20 Mg Tablet 20 Mg PO HS Multi Vitamin Daily (Multivitamin) 1 Each Tablet 1 Each PO DAILY Miralax (Polyethylene Glycol 3350) 17 Gm Powd.pack 17 Gm PO DAILY Keppra (Levetiracetam) 500 Mg Tablet 500 Mg PO BID Colace (Docusate Sodium) 100 Mg Capsule 100 Mg PO DAILY I have reviewed the current psychotropics carefully including drug interactions. Risk benefit ratio favors no change other than as noted in my dictated progress note. Diagnosis: Problems: (1) Mild cognitive impairment (2) Bipolar affective disorder, currently manic, severe, with psychosis (3) Anxiety disorder (4) Bipolar affective, mixed, sev w/ psych (5) Schizoaffective disorder, bipolar type (6) Psychosis, atypical (7) Impulse control disorder (8) Aggressive behavior of adult (9) Acute exacerbation of chronic schizoaffective schizophrenia AISHA MONZON MD Mar 09, 2019 23:01
--- NOTE | 2019-03-10 00:11 | PN ---
DATE: 03/08/2019 PSYCHIATRIC PROGRESS NOTE This late entry of 03/08/2019 covers elements not covered in my initial note. SUBJECTIVE: I met with the patient in the evening. The patient slept 7-1/4 hours previous night. He did well at night and has been somewhat withdrawn during the day, but better. He remains hyper-confucianist, but is able to be flexible. No CV, , pulmonary, eye system symptoms on review. He does complain of some stiffness of his neck, which is a chronic condition. MENTAL STATUS EXAM: Oriented reasonably. Speech is coherent, has some latency. Abstraction fair, computation impaired, language function intact, attention span short. Mood and affect less labile, less grandiose. LABORATORY DATA: Reviewed. IMPRESSION: Unchanged from initial note. PLAN: No change from initial note. MAN Emiliano MONZON MD DR: DEYSI/lewis JOB#: [id number] / [id number]
[2019-03-10] MEDS: LEVOTHYROXINE 125 MCG TABLET PO SCH (06:10)
[2019-03-10 06:18] VITALS: BP 111/73
[2019-03-10] MEDS: LACTOBACILLUS RHAMNOSUS GG 1 CAPSULE. PO SCH ×2 (08:45→19:56)
[2019-03-10] MEDS: DIVALPROEX 125 MG CAP.SPRINK PO SCH ×2 (08:45→19:56)
[2019-03-10] MEDS: levETIRAcetam 500 MG TABLET PO SCH ×2 (08:45→19:56)
[2019-03-10] MEDS: CALCIUM CARB/VIT D3 500/200 TABLET PO SCH (08:46)
[2019-03-10] MEDS: TAMSULOSIN 0.4 MG CAP.ER.24H. PO SCH (08:47)
[2019-03-10] MEDS: ASPIRIN 81 MG TAB.CHEW PO SCH (08:47)
[2019-03-10] MEDS: POTASSIUM CHLORIDE 20 MEQ TABLET.ER. PO SCH ×2 (08:47→19:56)
[2019-03-10] MEDS: OLANZapine 10 MG TABLET PO SCH (08:47)
[2019-03-10] MEDS: MULTIVITAMIN with MINERAL TABLET. PO SCH (08:48)
[2019-03-10] MEDS: BUMETANIDE 1 MG TABLET PO SCH (08:48)
[2019-03-10] MEDS: DOCUSATE SODIUM 100 MG CAPSULE PO SCH (08:48)
[2019-03-10] MEDS: BENZTROPINE MESYLATE 1 MG TABLET PO SCH ×2 (08:48→19:56)
[2019-03-10] MEDS: POLYETHYLENE GLYCOL 3350 17 GM PACKET. PO SCH (08:48)
[2019-03-10] MEDS: traMADol 50 MG TABLET PO SCH ×2 (08:50→19:58)
[2019-03-10 08:51] VITALS: BP 115/72
[2019-03-10] MEDS: METOPROLOL SUCC 24HR ER 25 MG TAB.ER.24H. PO SCH (08:54)
[2019-03-10 16:02] VITALS: BP 114/77
[2019-03-10] MEDS: SIMVASTATIN 20 MG TABLET PO SCH (19:56)
[2019-03-10] MEDS: MIRTAZAPINE 7.5 MG TABLET. PO SCH (19:56)
[2019-03-10] MEDS: busPIRone 5 MG TABLET. PO SCH (19:58)
--- NOTE | 2019-03-10 22:20 | PDOC ---
Exam Note: Venkat Note: Please also refer to the separate dictated note~for this date of service dictated separately.~Patient seen individually. Discussed the patient with Nursing staff reviewed the chart.~Reviewed interim history and current functioning. Reviewed vital signs,~Labs/ Radiology~and current medications noted below. Continue current treatment with the changes noted in the dictated addendum note Assessment: Vital Signs: Vital Signs Date Time Temp Pulse Resp B/P (MAP) Pulse Ox O2 Delivery O2 Flow Rate FiO2 03/10/19 20:58 99 03/10/19 16:02 97.8 74 20 114/77 (89) 03/10/19 10:00 Room Air I&O Intake and Output 03/10/19 07:00 Intake Total 840 ml Balance 840 ml Intake Oral 840 ml Current Medications: Meds: Current Medications Ceftriaxone Sodium 1 gm/ Sodium Chloride 50 ml @ 100 mls/hr 1X ONCE IV Last administered on 03/02/19at 13:37; Start 03/02/19 at 13:45; Stop 03/02/19 at 14:14; Status DC Ceftriaxone Sodium (Rocephin) 1 gm STK-MED ONCE .ROUTE ; Start 03/02/19 at 13:34; Stop 03/02/19 at 13:35; Status DC Sodium Chloride 50 ml @ As Directed STK-MED ONCE .ROUTE ; Start 03/02/19 at 13:35; Stop 03/02/19 at 13:36; Status DC Aspirin (Children'S Aspirin) 81 mg DAILYWBKFT PO Last administered on 03/10/19at 08:47; Start 03/03/19 at 08:00 Amoxicillin/ Clavulanate Potassium (Augmentin 875/ 125mg) 1 tab BID PO Last administered on 03/08/19at 08:24; Start 03/02/19 at 21:00; Stop 03/08/19 at 18:28; Status DC Benztropine Mesylate (Cogentin) 1 mg BID PO Last administered on 03/10/19at 19:56; Start 03/02/19 at 21:00 Bisacodyl (Dulcolax Tab) 5 mg PRN DAILY PRN PO CONSTIPATION; Start 03/02/19 at 16:00 Bumetanide (Bumex) 2 mg DAILY PO Last administered on 03/10/19at 08:48; Start 03/03/19 at 09:00 Divalproex Sodium (Depakote Er) 1,000 mg QHS PO Last administered on 03/02/19at 20:34; Start 03/02/19 at 21:00; Stop 03/03/19 at 10:16; Status DC Divalproex Sodium (Depakote Er) 1,500 mg DAILY PO ; Start 03/03/19 at 09:00; Stop 03/03/19 at 10:16; Status DC Levothyroxine Sodium (Synthroid) 125 mcg DAILY06 PO Last administered on 03/10/19at 06:10; Start 03/03/19 at 06:00 Metoprolol Succinate (Toprol Xl) 25 mg DAILY PO Last administered on 03/10/19 08:54; Start 03/03/19 at 09:00 Magnesium Hydroxide (Milk Of Magnesia) 2,400 mg PRN DAILY PRN PO CONSTIPATION; Start 03/02/19 at 16:00 Calcium/Vitamin D (Oscal D 500mg/ 200uts) 1 tab DAILY PO ; Start 03/03/19 at 09:00; Stop 03/03/19 at 09:00; Status DC Potassium Chloride (Klor-Con) 20 meq BID PO Last administered on 03/10/19at 19:56; Start 03/02/19 at 21:00 Sennosides (Senna) 8.6 mg PRN DAILY PRN PO CONSTIPATION; Start 03/02/19 at 16:00 Tamsulosin HCl (Flomax) 0.4 mg DAILY PO Last administered on 03/10/19at 08:47; Start 03/03/19 at 09:00 Tramadol HCl (Ultram) 50 mg BID PO Last administered on 03/10/19at 19:58; Start 03/02/19 at 21:00 Acetaminophen (Tylenol) 650 mg PRN Q6HRS PRN PO PAIN / TEMP; Start 03/02/19 at 16:00 Olanzapine (ZyPREXA) 10 mg DAILY PO Last administered on 03/03/19at 09:45; Start 03/03/19 at 09:00; Stop 03/03/19 at 11:05; Status DC Docusate Sodium (Colace) 100 mg DAILY PO Last administered on 03/10/19at 08:48; Start 03/03/19 at 09:00 Levetiracetam (Keppra) 500 mg BID PO Last administered on 03/10/19 19:56; Start 03/02/19 at 21:00 Multivitamins/ Calcium (Thera-M Plus) 1 tab DAILY PO Last administered on 03/10/19 08:48; Start 03/03/19 at 09:00 Polyethylene Glycol (miraLAX) 17 gm DAILY PO Last administered on 03/10/19 08:48; Start 03/03/19 at 09:00 Simvastatin (Zocor) 20 mg HS PO Last administered on 03/10/19 19:56; Start 03/02/19 at 21:00 Calcium/Vitamin D (Oscal D 500mg/ 200uts) 2.5 tab DAILY PO Last administered on 03/10/19 08:46; Start 03/03/19 at 09:00 Multi-Ingredient Ointment (Analgesic Holland) 1 altagracia PRN QID PRN TP MUSCLE PAIN; Start 03/02/19 at 18:00 Al Hydroxide/Mg Hydroxide (Mylanta Plus Xs) 15 ml PRN AFTMEALHC PRN PO DYSPEPSIA; Start 03/02/19 at 18:00 Trazodone HCl (Desyrel) 50 mg PRN QHS PRN PO INSOMNIA, MAY REPEAT X1 Last administered on 03/03/19 02:59; Start 03/03/19 at 02:45 Divalproex Sodium (Depakote Sprinkles) 1,000 mg DAILY PO Last administered on 03/10/19 08:45; Start 03/04/19 at 09:00 Divalproex Sodium (Depakote Sprinkles) 1,500 mg HS PO Last administered on 03/10/19 19:56; Start 03/03/19 at 21:00 Olanzapine (ZyPREXA) 12.5 mg DAILY PO Last administered on 03/10/19 08:47; Start 03/04/19 at 09:00 Lactobacillus Rhamnosus (Culturelle) 1 cap BID PO Last administered on 03/10/19 19:56; Start 03/03/19 at 21:00 Mirtazapine (Remeron) 7.5 mg QHS PO Last administered on 03/10/19 19:56; Start 03/03/19 at 21:00 Buspirone HCl (Buspar) 5 mg BID PO Last administered on 03/10/19at 19:58; Start 03/10/19 at 21:00 Active Scripts Active Reported Zyprexa (Olanzapine) 10 Mg Tablet 1 Tab PO DAILY Tylenol (Acetaminophen) 325 Mg Tablet 2 Tab PO PRN Q6HRS PRN Tramadol Hcl (Tramadol HCl) 50 Mg Tablet 50 Mg PO BID PRN Flomax (Tamsulosin Hcl) 0.4 Mg Cap.er.24h 1 Cap PO DAILY Senna (Sennosides) 8.6 Mg Tablet 8.6 Mg PO DAILY K-Tab ER (Potassium Chloride) 20 Meq Tablet.er 20 Meq PO BID Calcium 500 + Vit D 200 Caplet (Calcium Carbonate/Vitamin D3) 1 Each Tablet 2.5 Each PO DAILY Milk Of Magnesia (Magnesium Hydroxide) 2,400 Mg/10 Ml Oral.susp 2,400 Mg PO DAILY Metoprolol Succinate ( Xl ) (Metoprolol Succinate) 25 Mg Tab.er.24h 1 Tab PO DAILY Levothyroxine Sodium 125 Mcg Tablet 1 Tab PO DAILY06 Keppra (Levetiracetam) 500 Mg Tablet 1 Tab PO DAILY Divalproex Sodium Er (Divalproex Sodium) 500 Mg Tab.er.24h 3 Tab PO DAILY Divalproex Sodium Er (Divalproex Sodium) 500 Mg Tab.er.24h 2 Tab PO HS Bumetanide 2 Mg Tablet 2 Mg PO DAILY Bisacodyl 5 Mg Tablet.dr 5 Mg PO PRN DAILY PRN Benztropine Mesylate 1 Mg Tablet 1 Tab PO BID Augmentin 875-125 Tablet (Amoxicillin/Potassium Clav) 1 Each Tablet 1 Tab PO BID Aspirin 81 Mg Tab.chew 81 Mg PO DAILY Zocor (Simvastatin) 20 Mg Tablet 20 Mg PO HS Multi Vitamin Daily (Multivitamin) 1 Each Tablet 1 Each PO DAILY Miralax (Polyethylene Glycol 3350) 17 Gm Powd.pack 17 Gm PO DAILY Keppra (Levetiracetam) 500 Mg Tablet 500 Mg PO BID Colace (Docusate Sodium) 100 Mg Capsule 100 Mg PO DAILY I have reviewed the current psychotropics carefully including drug interactions. Risk benefit ratio favors no change other than as noted in my dictated progress note. Diagnosis: Problems: (1) Mild cognitive impairment (2) Bipolar affective disorder, currently manic, severe, with psychosis (3) Anxiety disorder (4) Bipolar affective, mixed, sev w/ psych (5) Schizoaffective disorder, bipolar type (6) Psychosis, atypical (7) Impulse control disorder (8) Delusions AISHA MONZON MD Mar 10, 2019 22:20
[2019-03-11] MEDS: LEVOTHYROXINE 125 MCG TABLET PO SCH (06:28)
[2019-03-11 06:36] VITALS: BP 127/76
[2019-03-11] MEDS: ASPIRIN 81 MG TAB.CHEW PO SCH (07:34)
[2019-03-11] MEDS: BUMETANIDE 1 MG TABLET PO SCH (07:36)
[2019-03-11] MEDS: BENZTROPINE MESYLATE 1 MG TABLET PO SCH ×2 (07:38→20:00)
[2019-03-11] MEDS: DOCUSATE SODIUM 100 MG CAPSULE PO SCH (07:38)
[2019-03-11] MEDS: busPIRone 5 MG TABLET. PO SCH ×2 (07:38→20:00)
[2019-03-11] MEDS: LACTOBACILLUS RHAMNOSUS GG 1 CAPSULE. PO SCH ×2 (07:39→20:00)
[2019-03-11] MEDS: TAMSULOSIN 0.4 MG CAP.ER.24H. PO SCH (07:41)
[2019-03-11] MEDS: DIVALPROEX 125 MG CAP.SPRINK PO SCH ×2 (07:41→20:00)
[2019-03-11] MEDS: levETIRAcetam 500 MG TABLET PO SCH ×2 (07:41→20:00)
[2019-03-11] MEDS: POTASSIUM CHLORIDE 20 MEQ TABLET.ER. PO SCH ×2 (07:42→20:02)
[2019-03-11] MEDS: POLYETHYLENE GLYCOL 3350 17 GM PACKET. PO SCH (07:42)
[2019-03-11] MEDS: CALCIUM CARB/VIT D3 500/200 TABLET PO SCH (07:44)
[2019-03-11] MEDS: MULTIVITAMIN with MINERAL TABLET. PO SCH (07:45)
[2019-03-11] MEDS: METOPROLOL SUCC 24HR ER 25 MG TAB.ER.24H. PO SCH (07:46)
[2019-03-11] MEDS: traMADol 50 MG TABLET PO SCH ×2 (07:50→20:00)
[2019-03-11] MEDS: OLANZapine 10 MG TABLET PO SCH (07:51)
[2019-03-11 15:21] VITALS: BP 106/65
[2019-03-11] MEDS: FERROUS SULFATE 325 MG TABLET. PO SCH (16:53)
[2019-03-11] MEDS: ASCORBIC ACID 500 MG TABLET PO SCH (16:55)
--- NOTE | 2019-03-11 17:15 | PN ---
DATE: 03/09/2019 PSYCHIATRIC PROGRESS NOTE This late entry 03/09/2019 covers elements not covered in my initial note. SUBJECTIVE: I met with the patient evening on 03/09/2019. The patient slept 5-1/2 hours previous night. Previous night he was agitated, had to be placed in the [facility] to reduce stimuli. He was misinterpreting what staff would telling him looking for his bible obsessed about this, getting into the nursing station, agitated, not refusing to leave the dining room. REVIEW OF SYSTEMS: Ambulation impaired with walker stiffness of his neck. No CV, , pulmonary, eye system symptoms on review. MENTAL STATUS EXAM: Reasonably oriented. Speech is coherent, somewhat loud. He has a very strong handshake part of his manic symptoms. Abstraction fair, computation impaired, language function intact, attention span short, mood and affect remain somewhat anxious, labile and paranoid. LABORATORY DATA: Reviewed. IMPRESSION: Bipolar 1 disorder, mixed with psychotic features, urinary tract infection. Rest unchanged. He also has symptoms of obsessive compulsive disorder. PLAN: Start Luvox 25 mg p.o. at bedtime. Maintain rest of the psychotropics from initial note and valproic acid level is therapeutic. AISHA MONZON MD DR: DEYSI/lewis JOB#: [id number] / [id number]
[2019-03-11] MEDS: MIRTAZAPINE 7.5 MG TABLET. PO SCH (20:00)
[2019-03-11] MEDS: SIMVASTATIN 20 MG TABLET PO SCH (20:00)
--- NOTE | 2019-03-11 22:42 | PDOC ---
Exam Note: Venkat Note: Please also refer to the separate dictated note~for this date of service dictated separately.~Patient seen individually. Discussed the patient with Nursing staff reviewed the chart.~Reviewed interim history and current functioning. Reviewed vital signs,~Labs/ Radiology~and current medications noted below. Continue current treatment with the changes noted in the dictated addendum note Assessment: Vital Signs/I&O: Vital Signs Date Time Temp Pulse Resp B/P (MAP) Pulse Ox O2 Delivery O2 Flow Rate FiO2 03/11/19 21:00 96 03/11/19 15:21 97.3 72 16 106/65 (79) 03/11/19 07:50 Room Air I & O 03/10/19 03/10/19 03/11/19 15:00 23:00 07:00 Intake Total 720 ml 360 ml Balance 720 ml 360 ml Current Medications: Meds: Current Medications Medications (Trade) Dose Ordered Sig/Justin Route PRN Reason Start Time Stop Time Status Last Admin Dose Admin Ferrous Sulfate (Feosol) 325 mg BIDWMEALS PO 03/11/19 17:00 03/11/19 16:53 Ascorbic Acid (Vitamin C) 500 mg BIDWMEALS PO 03/11/19 17:00 03/11/19 16:55 I have reviewed the current psychotropics carefully including drug interactions. Risk benefit ratio favors no change other than as noted in my dictated progress note. Diagnosis: Problems: (1) Mild cognitive impairment (2) Delusions (3) Bipolar affective disorder, currently manic, severe, with psychosis (4) Anxiety disorder (5) Bipolar affective, mixed, sev w/ psych (6) Psychosis, atypical (7) Impulse control disorder AISHA MONZON MD Mar 11, 2019 22:42
--- NOTE | 2019-03-12 01:02 | PN ---
DATE: 03/10/2019 PSYCHIATRIC PROGRESS NOTE This late entry 03/10/2019 covers elements not covered in my initial note. SUBJECTIVE: I met with the patient in the evening. The patient had a difficult day. He slept 8 hours previous night, remains hyper-methodist, fixated on his bipolar, has been quite abrasive verbally to nursing staff, more so in the evening. Staff discussed this with me at some length. Remains a little grandiose with mood lability. REVIEW OF SYSTEMS: Ambulation impaired with walker. No CV, , pulmonary, eye system symptoms on review. MENTAL STATUS EXAM: Oriented to himself and situation. Speech has some latency, coherent. Abstraction fair, computation impaired, language function intact, attention span short. Mood and affect remain somewhat anxious, labile, grandiose. LABORATORY DATA: Reviewed. IMPRESSION: Unchanged from initial note. PLAN: No change from initial note. Start BuSpar 5 mg twice a day in addition to his Depakote and Remeron along with Zyprexa scheduled 12.5 mg a day. He is also on Keppra for his seizures and Cogentin for his stiffness. AISHA MONZON MD DR: DEYSI/lewis JOB#: [id number] / [id number]
[2019-03-12 05:42] VITALS: BP 114/73
[2019-03-12] MEDS: LEVOTHYROXINE 125 MCG TABLET PO SCH (05:54)
[2019-03-12] MEDS: DIVALPROEX 125 MG CAP.SPRINK PO SCH ×2 (08:26→19:33)
[2019-03-12] MEDS: METOPROLOL SUCC 24HR ER 25 MG TAB.ER.24H. PO SCH (08:27)
[2019-03-12] MEDS: DOCUSATE SODIUM 100 MG CAPSULE PO SCH (08:27)
[2019-03-12] MEDS: CALCIUM CARB/VIT D3 500/200 TABLET PO SCH (08:29)
[2019-03-12] MEDS: busPIRone 5 MG TABLET. PO SCH ×2 (08:30→19:35)
[2019-03-12] MEDS: levETIRAcetam 500 MG TABLET PO SCH ×2 (08:30→19:34)
[2019-03-12] MEDS: FERROUS SULFATE 325 MG TABLET. PO SCH ×2 (08:31→17:18)
[2019-03-12] MEDS: MULTIVITAMIN with MINERAL TABLET. PO SCH (08:31)
[2019-03-12] MEDS: ASCORBIC ACID 500 MG TABLET PO SCH ×2 (08:31→17:31)
[2019-03-12] MEDS: LACTOBACILLUS RHAMNOSUS GG 1 CAPSULE. PO SCH ×2 (08:31→19:34)
[2019-03-12] MEDS: BENZTROPINE MESYLATE 1 MG TABLET PO SCH ×2 (08:31→19:34)
[2019-03-12] MEDS: POTASSIUM CHLORIDE 20 MEQ TABLET.ER. PO SCH ×2 (08:32→19:34)
[2019-03-12] MEDS: BUMETANIDE 1 MG TABLET PO SCH (08:32)
[2019-03-12] MEDS: TAMSULOSIN 0.4 MG CAP.ER.24H. PO SCH (08:32)
[2019-03-12] MEDS: OLANZapine 10 MG TABLET PO SCH ×2 (08:35→08:40)
[2019-03-12] MEDS: ASPIRIN 81 MG TAB.CHEW PO SCH (08:38)
[2019-03-12] MEDS: POLYETHYLENE GLYCOL 3350 17 GM PACKET. PO SCH (08:38)
[2019-03-12] MEDS: traMADol 50 MG TABLET PO SCH ×2 (08:43→19:34)
[2019-03-12] MEDS: LORazepam 0.5 MG TABLET PO PRN (14:40)
[2019-03-12 15:43] VITALS: BP 90/61
[2019-03-12] MEDS: SIMVASTATIN 20 MG TABLET PO SCH (19:32)
[2019-03-12] MEDS: MIRTAZAPINE 7.5 MG TABLET. PO SCH (19:34)
[2019-03-12 19:46] VITALS: BP 96/51
--- NOTE | 2019-03-12 22:51 | PDOC ---
Exam Note: Venkat Note: Please also refer to the separate dictated note~for this date of service dictated separately.~Patient seen individually. Discussed the patient with Nursing staff reviewed the chart.~Reviewed interim history and current functioning. Reviewed vital signs,~Labs/ Radiology~and current medications noted below. Continue current treatment with the changes noted in the dictated addendum note Assessment: Vital Signs/I&O: Vital Signs Date Time Temp Pulse Resp B/P (MAP) Pulse Ox O2 Delivery O2 Flow Rate FiO2 03/12/19 20:34 94 03/12/19 19:46 67 96/51 (66) 03/12/19 15:43 97.1 18 03/12/19 05:42 Room Air I & O 03/11/19 03/11/19 03/12/19 14:59 22:59 06:59 Intake Total 720 ml 240 ml 120 ml Balance 720 ml 240 ml 120 ml Current Medications: Meds: Current Medications Medications (Trade) Dose Ordered Sig/Justin Route PRN Reason Start Time Stop Time Status Last Admin Dose Admin Lorazepam (Ativan) 0.5 mg PRN Q2HR PRN PO ANXIETY / AGITATION 03/12/19 14:30 03/12/19 14:40 I have reviewed the current psychotropics carefully including drug interactions. Risk benefit ratio favors no change other than as noted in my dictated progress note. Diagnosis: Problems: (1) Aggressive behavior of adult (2) Schizophrenia (3) Delusions (4) Bipolar affective disorder, currently manic, severe, with psychosis (5) Anxiety disorder (6) Acute exacerbation of chronic schizoaffective schizophrenia (7) Bipolar affective, mixed, sev w/ psych (8) Isolated seizures (9) Schizoaffective disorder, bipolar type (10) Essential hypertension (11) Psychosis, atypical (12) Impulse control disorder AISHA MONZON MD Mar 12, 2019 22:51
[2019-03-13 05:45] VITALS: BP 125/71
[2019-03-13] MEDS: LEVOTHYROXINE 125 MCG TABLET PO SCH (06:13)
[2019-03-13 06:54] LABS: BASO % 0 % (0-3); EOS # 0.1 x10^3/uL (0.0-0.7); EOS % 2 % (0-3); HEMATOCRIT 38.9 % (39.0-53.0); LYMPH # 3.2 x10^3/uL (1.0-4.8); LYMPH % 44 % (24-48); MEAN CORPUSCULAR HEMOGLOBIN 33 pg (25-35); MEAN CORPUSCULAR HGB CONC 33 g/dL (31-37); MEAN CORPUSCULAR VOLUME 98 fL (79-100); MONO # 0.6 x10^3/uL (0.0-1.1); MONO % 9 % (0-9); NEUT # 3.3 x10^3uL (1.8-7.7); NEUT % 45 % (31-73); PLATELET COUNT 92 x10^3/uL (140-400); RED BLOOD COUNT 3.97 x10^6/uL (4.30-5.70); WHITE BLOOD COUNT 7.2 x10^3/uL (4.0-11.0)
[2019-03-13 07:18] LABS: ALBUMIN 3.3 g/dL (3.4-5.0); ALBUMIN/GLOBULIN RATIO 0.7 (1.0-1.7); CALCIUM 9.3 mg/dL (8.5-10.1); CREATININE 1.1 mg/dL (0.7-1.3); GFR 66.2; POTASSIUM 4.1 mmol/L (3.5-5.1); TOTAL BILIRUBIN 0.4 mg/dL (0.2-1.0); TOTAL PROTEIN 7.8 g/dL (6.4-8.2)
[2019-03-13] MEDS: levETIRAcetam 500 MG TABLET PO SCH ×2 (07:45→20:06)
[2019-03-13] MEDS: DIVALPROEX 125 MG CAP.SPRINK PO SCH ×2 (07:45→20:06)
[2019-03-13] MEDS: CALCIUM CARB/VIT D3 500/200 TABLET PO SCH (07:45)
[2019-03-13] MEDS: busPIRone 5 MG TABLET. PO SCH (07:45)
[2019-03-13] MEDS: METOPROLOL SUCC 24HR ER 25 MG TAB.ER.24H. PO SCH (07:45)
[2019-03-13] MEDS: ASCORBIC ACID 500 MG TABLET PO SCH ×2 (07:46→17:00)
[2019-03-13] MEDS: POTASSIUM CHLORIDE 20 MEQ TABLET.ER. PO SCH ×2 (07:46→20:05)
[2019-03-13] MEDS: ASPIRIN 81 MG TAB.CHEW PO SCH (07:46)
[2019-03-13] MEDS: MULTIVITAMIN with MINERAL TABLET. PO SCH (07:46)
[2019-03-13] MEDS: BENZTROPINE MESYLATE 1 MG TABLET PO SCH ×2 (07:46→20:05)
[2019-03-13] MEDS: TAMSULOSIN 0.4 MG CAP.ER.24H. PO SCH (07:47)
[2019-03-13] MEDS: FERROUS SULFATE 325 MG TABLET. PO SCH ×2 (07:47→17:00)
[2019-03-13] MEDS: LACTOBACILLUS RHAMNOSUS GG 1 CAPSULE. PO SCH ×2 (07:47→20:06)
[2019-03-13] MEDS: OLANZapine 10 MG TABLET PO SCH (07:47)
[2019-03-13] MEDS: DOCUSATE SODIUM 100 MG CAPSULE PO SCH (07:47)
[2019-03-13] MEDS: POLYETHYLENE GLYCOL 3350 17 GM PACKET. PO SCH (07:48)
[2019-03-13] MEDS: BUMETANIDE 1 MG TABLET PO SCH (07:50)
[2019-03-13] MEDS: traMADol 50 MG TABLET PO SCH ×2 (07:54→21:37)
[2019-03-13] MEDS: LORazepam 0.5 MG TABLET PO PRN ×2 (08:03→13:30)
[2019-03-13 15:30] VITALS: BP 120/78
[2019-03-13] MEDS: MIRTAZAPINE 7.5 MG TABLET. PO SCH (20:05)
[2019-03-13] MEDS: busPIRone 10 MG TABLET. PO SCH (20:06)
[2019-03-13] MEDS: SIMVASTATIN 20 MG TABLET PO SCH (20:06)
--- NOTE | 2019-03-13 22:18 | PDOC ---
Exam Note: Venkat Note: Please also refer to the separate dictated note~for this date of service dictated separately.~Patient seen individually. Discussed the patient with Nursing staff reviewed the chart.~Reviewed interim history and current functioning. Reviewed vital signs,~Labs/ Radiology~and current medications noted below. Continue current treatment with the changes noted in the dictated addendum note Assessment: Vital Signs/I&O: Vital Signs Date Time Temp Pulse Resp B/P (MAP) Pulse Ox O2 Delivery O2 Flow Rate FiO2 03/13/19 21:37 16 95 03/13/19 15:30 97.2 63 120/78 (92) 03/12/19 05:42 Room Air I & O 03/12/19 03/12/19 03/13/19 15:00 23:00 07:00 Intake Total 360 ml 480 ml 120 ml Balance 360 ml 480 ml 120 ml Labs: Laboratory Tests Test 03/13/19 06:30 White Blood Count 7.2 x10^3/uL (4.0-11.0) Red Blood Count 3.97 x10^6/uL (4.30-5.70) L Hemoglobin 13.0 g/dL (13.0-17.5) Hematocrit 38.9 % (39.0-53.0) L Mean Corpuscular Volume 98 fL (79-100) Mean Corpuscular Hemoglobin 33 pg (25-35) Mean Corpuscular Hemoglobin Concent 33 g/dL (31-37) Red Cell Distribution Width 15.0 % (11.5-14.5) H Platelet Count 92 x10^3/uL (140-400) L Neutrophils (%) (Auto) 45 % (31-73) Lymphocytes (%) (Auto) 44 % (24-48) Monocytes (%) (Auto) 9 % (0-9) Eosinophils (%) (Auto) 2 % (0-3) Basophils (%) (Auto) 0 % (0-3) Neutrophils # (Auto) 3.3 x10^3uL (1.8-7.7) Lymphocytes # (Auto) 3.2 x10^3/uL (1.0-4.8) Monocytes # (Auto) 0.6 x10^3/uL (0.0-1.1) Eosinophils # (Auto) 0.1 x10^3/uL (0.0-0.7) Basophils # (Auto) 0.0 x10^3/uL (0.0-0.2) Sodium Level 143 mmol/L (136-145) Potassium Level 4.1 mmol/L (3.5-5.1) Chloride Level 106 mmol/L (98-107) Carbon Dioxide Level 34 mmol/L (21-32) H Anion Gap 3 (6-14) L Blood Urea Nitrogen 26 mg/dL (8-26) Creatinine 1.1 mg/dL (0.7-1.3) Estimated GFR (Cockcroft-Gault) 66.2 BUN/Creatinine Ratio 24 (6-20) H Glucose Level 80 mg/dL (70-99) Calcium Level 9.3 mg/dL (8.5-10.1) Total Bilirubin 0.4 mg/dL (0.2-1.0) Aspartate Amino Transferase (AST) 25 U/L (15-37) Alanine Aminotransferase (ALT) 23 U/L (16-63) Alkaline Phosphatase 66 U/L (46-116) Total Protein 7.8 g/dL (6.4-8.2) Albumin 3.3 g/dL (3.4-5.0) L Albumin/Globulin Ratio 0.7 (1.0-1.7) L Current Medications: Meds: Current Medications Medications (Trade) Dose Ordered Sig/Justin Route PRN Reason Start Time Stop Time Status Last Admin Dose Admin Buspirone HCl (Buspar) 10 mg BID PO 03/13/19 21:00 03/13/19 20:06 I have reviewed the current psychotropics carefully including drug interactions. Risk benefit ratio favors no change other than as noted in my dictated progress note. Diagnosis: Problems: (1) Mild cognitive impairment (2) Delusions (3) Bipolar affective disorder, currently manic, severe, with psychosis (4) Anxiety disorder (5) Bipolar affective, mixed, sev w/ psych (6) Schizoaffective disorder, bipolar type (7) Psychosis, atypical (8) Impulse control disorder AISHA MONZON MD Mar 13, 2019 22:18
--- NOTE | 2019-03-13 22:36 | PN ---
DATE: 03/13/2019 PSYCHIATRIC PROGRESS NOTE This late entry from 03/11 covers elements not covered in my initial note. SUBJECTIVE: I met with the patient in the evening. The patient slept reasonably, previous night. He has been somewhat defiant per the nursing staff. Urine: Positive for CRE. Yesterday, he was irritable, possibly hallucinating, checking doors little better on 03/11. REVIEW OF SYSTEMS: Ambulation impaired with walker. No CV, , pulmonary, eye, ENT system symptoms on review. MENTAL STATUS EXAM: Reasonably oriented, readily recognized me and knew my name. Speech has some latency, coherent, often responses monosyllabic. Abstraction fair, computation impaired, language function intact. Mood and affect remain somewhat grandiose, labile at times, but improved. LABORATORY DATA: Reviewed. IMPRESSION: Unchanged from initial note. PLAN: No change from initial note. MAN Emiliano MONZON MD DR: DEYSI/lewis JOB#: [id number] / [id number]
[2019-03-14] MEDS: LEVOTHYROXINE 125 MCG TABLET PO SCH (05:25)
[2019-03-14 06:05] VITALS: BP 119/77
[2019-03-14] MEDS: MULTIVITAMIN with MINERAL TABLET. PO SCH (08:52)
[2019-03-14] MEDS: POLYETHYLENE GLYCOL 3350 17 GM PACKET. PO SCH (08:52)
[2019-03-14] MEDS: DIVALPROEX 125 MG CAP.SPRINK PO SCH ×2 (08:52→19:22)
[2019-03-14] MEDS: OLANZapine 10 MG TABLET PO SCH (08:53)
[2019-03-14] MEDS: busPIRone 10 MG TABLET. PO SCH ×2 (08:53→19:22)
[2019-03-14] MEDS: ASPIRIN 81 MG TAB.CHEW PO SCH (08:54)
[2019-03-14] MEDS: DOCUSATE SODIUM 100 MG CAPSULE PO SCH (08:54)
[2019-03-14] MEDS: TAMSULOSIN 0.4 MG CAP.ER.24H. PO SCH (08:54)
[2019-03-14] MEDS: ASCORBIC ACID 500 MG TABLET PO SCH ×2 (08:54→16:59)
[2019-03-14] MEDS: FERROUS SULFATE 325 MG TABLET. PO SCH ×2 (08:54→16:59)
[2019-03-14] MEDS: METOPROLOL SUCC 24HR ER 25 MG TAB.ER.24H. PO SCH (08:54)
[2019-03-14] MEDS: levETIRAcetam 500 MG TABLET PO SCH ×2 (08:55→19:22)
[2019-03-14] MEDS: LACTOBACILLUS RHAMNOSUS GG 1 CAPSULE. PO SCH ×2 (08:55→19:22)
[2019-03-14] MEDS: POTASSIUM CHLORIDE 20 MEQ TABLET.ER. PO SCH ×2 (08:55→19:22)
[2019-03-14] MEDS: CALCIUM CARB/VIT D3 500/200 TABLET PO SCH (08:55)
[2019-03-14] MEDS: BENZTROPINE MESYLATE 1 MG TABLET PO SCH ×2 (08:55→19:22)
[2019-03-14] MEDS: BUMETANIDE 1 MG TABLET PO SCH (08:56)
[2019-03-14] MEDS: traMADol 50 MG TABLET PO SCH ×2 (08:58→19:23)
[2019-03-14 16:03] VITALS: BP 128/79
[2019-03-14] MEDS: MIRTAZAPINE 7.5 MG TABLET. PO SCH (19:22)
[2019-03-14] MEDS: SIMVASTATIN 20 MG TABLET PO SCH (19:22)
--- NOTE | 2019-03-14 22:33 | PDOC ---
Exam Note: Venkat Note: Please also refer to the separate dictated note~for this date of service dictated separately.~Patient seen individually. Discussed the patient with Nursing staff reviewed the chart.~Reviewed interim history and current functioning. Reviewed vital signs,~Labs/ Radiology~and current medications noted below. Continue current treatment with the changes noted in the dictated addendum note Assessment: Vital Signs/I&O: Vital Signs Date Time Temp Pulse Resp B/P (MAP) Pulse Ox O2 Delivery O2 Flow Rate FiO2 03/14/19 19:23 Room Air 03/14/19 16:03 97.6 67 16 128/79 (95) 98 I & O 03/13/19 03/13/19 03/14/19 14:59 22:59 06:59 Intake Total 720 ml 0 ml 100 ml Balance 720 ml 0 ml 100 ml Current Medications: I have reviewed the current psychotropics carefully including drug interactions. Risk benefit ratio favors no change other than as noted in my dictated progress note. Diagnosis: Problems: (1) Mild cognitive impairment (2) Delusions (3) Bipolar affective disorder, currently manic, severe, with psychosis (4) Anxiety disorder (5) Bipolar affective, mixed, sev w/ psych (6) Schizoaffective disorder, bipolar type (7) Psychosis, atypical (8) Impulse control disorder AISHA MONZON MD Mar 14, 2019 22:33
--- NOTE | 2019-03-15 00:51 | PN ---
DATE: 03/13/2019 PSYCHIATRIC PROGRESS NOTE This late entry 03/13/2019 covers elements not covered in my initial note. SUBJECTIVE: I met with the patient in the evening. The patient slept 6-1/2 hours previous night. The patient remains somewhat irritable, demanding at times refusing to come out of the dining room, easily upset with the nursing staff. He is very pleasant with me individually, but as before, has a very strong handshake, somewhat hyper latter-day during our visit. REVIEW OF SYSTEMS: Positive for impaired ambulation with walker. No CV, , pulmonary, eye, ENT system symptoms on review. MENTAL STATUS EXAM: Oriented to himself and situation. Speech has some latency, coherent, at times a little pressured. Abstraction fair, computation impaired, language function intact, attention span short. Mood and affect remain somewhat grandiose. LABORATORY DATA: Reviewed. IMPRESSION: Unchanged from initial note. PLAN: Increase BuSpar from 5 mg b.i.d. to 10 mg b.i.d. Maintain Depakote at current dosage, level therapeutic at 84. Continue rest, unchanged for now. MAN Emiliano MONZON MD DR: DEYSI/lewis JOB#: [id number] / [id number]
--- NOTE | 2019-03-15 03:37 | PN ---
DATE: 03/12/2019 PSYCHIATRIC PROGRESS NOTE This late entry, 03/12/2019, covers elements not covered in my initial note. SUBJECTIVE: I met with the patient in the evening. The patient slept 5 hours previous night. He has been calmer, pleasant, compliant with medications, though he was agitated with the MEDICAL RECORD TECHNICIAN staff earlier in the evening, received p.r.n. Ativan. As I met with him, he was calmer, seemed to rationalize what happened with the podiatric aide. REVIEW OF SYSTEMS: Ambulation impaired with walker. Some stiffness of his neck, unchanged from before. No CV, , pulmonary, eye, ENT system symptoms on review. MENTAL STATUS EXAM: Oriented to himself and situation. Speech has some latency, coherent. Abstraction fair, computation impaired, language function intact, attention span short. He remains somewhat grandiose, but better than before. LABORATORY DATA: Reviewed. IMPRESSION: Unchanged from initial note. PLAN: No change from initial note. AISHA MONZON MD DR: DEYSI/lewis JOB#: [id number] / [id number]
[2019-03-15] MEDS: LEVOTHYROXINE 125 MCG TABLET PO SCH (05:50)
[2019-03-15 05:51] VITALS: BP 122/79
[2019-03-15] MEDS: ASPIRIN 81 MG TAB.CHEW PO SCH (09:19)
[2019-03-15] MEDS: DOCUSATE SODIUM 100 MG CAPSULE PO SCH (09:20)
[2019-03-15] MEDS: FERROUS SULFATE 325 MG TABLET. PO SCH ×2 (09:20→17:09)
[2019-03-15] MEDS: BENZTROPINE MESYLATE 1 MG TABLET PO SCH ×2 (09:20→21:13)
[2019-03-15] MEDS: busPIRone 10 MG TABLET. PO SCH ×2 (09:20→21:13)
[2019-03-15] MEDS: ASCORBIC ACID 500 MG TABLET PO SCH ×2 (09:20→17:09)
[2019-03-15] MEDS: LACTOBACILLUS RHAMNOSUS GG 1 CAPSULE. PO SCH ×2 (09:21→21:12)
[2019-03-15] MEDS: levETIRAcetam 500 MG TABLET PO SCH ×2 (09:21→21:13)
[2019-03-15] MEDS: TAMSULOSIN 0.4 MG CAP.ER.24H. PO SCH (09:21)
[2019-03-15] MEDS: DIVALPROEX 125 MG CAP.SPRINK PO SCH ×2 (09:21→21:12)
[2019-03-15] MEDS: POTASSIUM CHLORIDE 20 MEQ TABLET.ER. PO SCH ×2 (09:22→21:13)
[2019-03-15] MEDS: CALCIUM CARB/VIT D3 500/200 TABLET PO SCH (09:22)
[2019-03-15] MEDS: POLYETHYLENE GLYCOL 3350 17 GM PACKET. PO SCH (09:22)
[2019-03-15] MEDS: OLANZapine 10 MG TABLET PO SCH (09:23)
[2019-03-15] MEDS: METOPROLOL SUCC 24HR ER 25 MG TAB.ER.24H. PO SCH (09:24)
[2019-03-15] MEDS: MULTIVITAMIN with MINERAL TABLET. PO SCH (09:24)
[2019-03-15] MEDS: BUMETANIDE 1 MG TABLET PO SCH (09:28)
[2019-03-15] MEDS: traMADol 50 MG TABLET PO SCH ×2 (09:28→21:14)
--- NOTE | 2019-03-15 13:43 | PN ---
DATE: 03/14/2019 PSYCHIATRIC PROGRESS NOTE This late entry 03/14/2019 covers elements not covered in my initial note. SUBJECTIVE: I met with the patient at some length individually in his room. The patient did well in the morning, was compliant with medications, was naked in bed previous night, but somewhat delusional. He ambulates with a walker. He slept 5 hours previous night. UA is positive for CRE and I will defer to Dr. Jensen. Nursing staff feel he seeks attention, becomes anxious, restless at times, demanding with mood lability. REVIEW OF SYSTEMS: Ambulation impaired with walker. No CV, , pulmonary, eye system symptoms on review. MENTAL STATUS EXAM: As I met with him, he was obsessed about finding his Bible. Abstraction fair, computation impaired, language function intact, attention span short. Mood and affect remain somewhat grandiose, anxious, and labile at times. LABORATORY DATA: Reviewed. IMPRESSION: Unchanged from initial note. PLAN: No change from initial note. MAN Emiliano MONZON MD DR: DEYSI/lewis JOB#: [id number] / [id number]
[2019-03-15 15:45] VITALS: BP 122/76
[2019-03-15] MEDS: SIMVASTATIN 20 MG TABLET PO SCH (21:12)
[2019-03-15] MEDS: MIRTAZAPINE 7.5 MG TABLET. PO SCH (21:13)
--- NOTE | 2019-03-15 22:13 | PDOC ---
Exam Note: Venkat Note: Please also refer to the separate dictated note~for this date of service dictated separately.~Patient seen individually. Discussed the patient with Nursing staff reviewed the chart.~Reviewed interim history and current functioning. Reviewed vital signs,~Labs/ Radiology~and current medications noted below. Continue current treatment with the changes noted in the dictated addendum note Assessment: Vital Signs/I&O: Vital Signs Date Time Temp Pulse Resp B/P (MAP) Pulse Ox O2 Delivery O2 Flow Rate FiO2 03/15/19 21:14 20 98 03/15/19 15:45 96.3 60 122/76 (91) 03/15/19 10:30 Room Air I & O 03/14/19 03/14/19 03/15/19 14:59 22:59 06:59 Intake Total 360 ml 240 ml 100 ml Balance 360 ml 240 ml 100 ml Current Medications: I have reviewed the current psychotropics carefully including drug interactions. Risk benefit ratio favors no change other than as noted in my dictated progress note. Diagnosis: Problems: (1) Mild cognitive impairment (2) Delusions (3) Bipolar affective disorder, currently manic, severe, with psychosis (4) Anxiety disorder (5) Bipolar affective, mixed, sev w/ psych (6) Isolated seizures (7) Schizoaffective disorder, bipolar type (8) Psychosis, atypical (9) Impulse control disorder AISHA MONZON MD Mar 15, 2019 22:13
[2019-03-16 05:59] VITALS: BP 112/68
[2019-03-16] MEDS: LEVOTHYROXINE 125 MCG TABLET PO SCH (06:23)
[2019-03-16] MEDS: FERROUS SULFATE 325 MG TABLET. PO SCH ×2 (08:18→17:40)
[2019-03-16] MEDS: ASCORBIC ACID 500 MG TABLET PO SCH ×2 (08:18→17:40)
[2019-03-16] MEDS: ASPIRIN 81 MG TAB.CHEW PO SCH (08:18)
[2019-03-16] MEDS: BENZTROPINE MESYLATE 1 MG TABLET PO SCH ×2 (08:19→20:51)
[2019-03-16] MEDS: busPIRone 10 MG TABLET. PO SCH ×2 (08:19→20:50)
[2019-03-16] MEDS: LACTOBACILLUS RHAMNOSUS GG 1 CAPSULE. PO SCH ×2 (08:20→20:50)
[2019-03-16] MEDS: TAMSULOSIN 0.4 MG CAP.ER.24H. PO SCH (08:20)
[2019-03-16] MEDS: DOCUSATE SODIUM 100 MG CAPSULE PO SCH (08:20)
[2019-03-16] MEDS: DIVALPROEX 125 MG CAP.SPRINK PO SCH ×2 (08:20→20:50)
[2019-03-16] MEDS: POTASSIUM CHLORIDE 20 MEQ TABLET.ER. PO SCH ×2 (08:21→20:51)
[2019-03-16] MEDS: CALCIUM CARB/VIT D3 500/200 TABLET PO SCH (08:21)
[2019-03-16] MEDS: levETIRAcetam 500 MG TABLET PO SCH ×2 (08:21→20:50)
[2019-03-16] MEDS: POLYETHYLENE GLYCOL 3350 17 GM PACKET. PO SCH (08:21)
[2019-03-16] MEDS: MULTIVITAMIN with MINERAL TABLET. PO SCH (08:22)
[2019-03-16] MEDS: METOPROLOL SUCC 24HR ER 25 MG TAB.ER.24H. PO SCH (08:22)
[2019-03-16] MEDS: OLANZapine 10 MG TABLET PO SCH (08:23)
[2019-03-16] MEDS: BUMETANIDE 1 MG TABLET PO SCH (08:26)
[2019-03-16] MEDS: traMADol 50 MG TABLET PO SCH ×2 (08:26→20:56)
[2019-03-16 15:58] VITALS: BP 142/86
--- NOTE | 2019-03-16 17:02 | RAD ---
Pelvis with both hips, 5 views, 03/16/2019: HISTORY: Fall There is moderate narrowing of the left hip joint with subchondral sclerosis and spurring. The right hip joint is fairly well-maintained. No fracture or dislocation is identified. IMPRESSION: 1. Moderate osteoarthritis at the left hip joint. 2. No acute bony abnormality is detected. Electronically signed by: Grover Holliday MD (03/16/2019 4:59 PM) [facility]
[2019-03-16] MEDS: SIMVASTATIN 20 MG TABLET PO SCH (20:50)
[2019-03-16] MEDS: MIRTAZAPINE 7.5 MG TABLET. PO SCH (20:51)
--- NOTE | 2019-03-16 22:07 | PDOC ---
Exam Note: Venkat Note: Please also refer to the separate dictated note~for this date of service dictated separately.~Patient seen individually. Discussed the patient with Nursing staff reviewed the chart.~Reviewed interim history and current functioning. Reviewed vital signs,~Labs/ Radiology~and current medications noted below. Continue current treatment with the changes noted in the dictated addendum note Assessment: Vital Signs/I&O: Vital Signs Date Time Temp Pulse Resp B/P (MAP) Pulse Ox O2 Delivery O2 Flow Rate FiO2 03/16/19 20:56 18 Room Air 03/16/19 15:58 98.1 72 142/86 (104) 96 I & O 03/15/19 03/15/19 03/16/19 14:59 22:59 06:59 Intake Total 240 ml 240 ml 100 ml Balance 240 ml 240 ml 100 ml Current Medications: I have reviewed the current psychotropics carefully including drug interactions. Risk benefit ratio favors no change other than as noted in my dictated progress note. Diagnosis: Problems: (1) Mild cognitive impairment (2) Delusions (3) Bipolar affective disorder, currently manic, severe, with psychosis (4) Anxiety disorder (5) Bipolar affective, mixed, sev w/ psych (6) Schizoaffective disorder, bipolar type (7) Psychosis, atypical (8) Impulse control disorder AISHA MONZON MD Mar 16, 2019 22:07
--- NOTE | 2019-03-17 00:19 | PN ---
DATE: 03/15/2019 PSYCHIATRIC PROGRESS NOTE This late entry 03/15/2019 covers elements not covered in my initial note. SUBJECTIVE: I met with the patient in the evening. The patient slept 7 hours previous night. He is compliant with his medications. Previous night he was trying to find his bible even though it was in his room. He slept early in the morning, but has been more pleasant during the day on 03/15/2019. I met with him individually. REVIEW OF SYSTEMS: No CV, , pulmonary, eye, ENT system symptoms on review. He walks, bent forward neck on one side, but this is typical for him. MENTAL STATUS EXAMINATION: Reasonably oriented. Speech has some latency, coherent, quite animated, strongly shaking my hand, knew me by name. Abstraction fair, computation impaired, language function intact, attention span short. Mood and affect still somewhat grandiose, labile, but improved. LABORATORY DATA: Reviewed. IMPRESSION: Unchanged from initial note. PLAN: No change from initial note. MAN Emiliano MONZON MD DR: DEYSI/lewis JOB#: [id number] / [id number]
[2019-03-17] MEDS: LEVOTHYROXINE 125 MCG TABLET PO SCH (05:52)
[2019-03-17 06:02] VITALS: BP 102/67
[2019-03-17] MEDS: ASPIRIN 81 MG TAB.CHEW PO SCH (08:21)
[2019-03-17] MEDS: FERROUS SULFATE 325 MG TABLET. PO SCH ×2 (08:22→17:02)
[2019-03-17] MEDS: ASCORBIC ACID 500 MG TABLET PO SCH ×2 (08:22→17:02)
[2019-03-17] MEDS: BENZTROPINE MESYLATE 1 MG TABLET PO SCH ×2 (08:22→19:24)
[2019-03-17] MEDS: LACTOBACILLUS RHAMNOSUS GG 1 CAPSULE. PO SCH ×2 (08:23→19:24)
[2019-03-17] MEDS: busPIRone 10 MG TABLET. PO SCH ×2 (08:23→19:24)
[2019-03-17] MEDS: DOCUSATE SODIUM 100 MG CAPSULE PO SCH (08:23)
[2019-03-17] MEDS: TAMSULOSIN 0.4 MG CAP.ER.24H. PO SCH (08:24)
[2019-03-17] MEDS: levETIRAcetam 500 MG TABLET PO SCH ×2 (08:24→19:24)
[2019-03-17] MEDS: DIVALPROEX 125 MG CAP.SPRINK PO SCH ×2 (08:24→19:23)
[2019-03-17] MEDS: POTASSIUM CHLORIDE 20 MEQ TABLET.ER. PO SCH ×2 (08:25→19:24)
[2019-03-17] MEDS: POLYETHYLENE GLYCOL 3350 17 GM PACKET. PO SCH (08:25)
[2019-03-17] MEDS: CALCIUM CARB/VIT D3 500/200 TABLET PO SCH (08:26)
[2019-03-17] MEDS: MULTIVITAMIN with MINERAL TABLET. PO SCH (08:26)
[2019-03-17] MEDS: METOPROLOL SUCC 24HR ER 25 MG TAB.ER.24H. PO SCH (08:26)
[2019-03-17] MEDS: OLANZapine 10 MG TABLET PO SCH (08:29)
[2019-03-17] MEDS: traMADol 50 MG TABLET PO SCH ×2 (08:31→19:25)
[2019-03-17] MEDS: BUMETANIDE 1 MG TABLET PO SCH (08:32)
[2019-03-17 16:32] VITALS: BP 120/72
[2019-03-17] MEDS ORDERED: SODIUM CHLORIDE 0.65% NASAL SPRAY 45ML BOTTLE. NS PRN (18:00)
[2019-03-17] MEDS: MIRTAZAPINE 7.5 MG TABLET. PO SCH (19:23)
[2019-03-17] MEDS: SIMVASTATIN 20 MG TABLET PO SCH (19:23)
--- NOTE | 2019-03-17 22:34 | PDOC ---
Exam Note: Venkat Note: Please also refer to the separate dictated note~for this date of service dictated separately.~Patient seen individually. Discussed the patient with Nursing staff reviewed the chart.~Reviewed interim history and current functioning. Reviewed vital signs,~Labs/ Radiology~and current medications noted below. Continue current treatment with the changes noted in the dictated addendum note Assessment: Vital Signs/I&O: Vital Signs Date Time Temp Pulse Resp B/P (MAP) Pulse Ox O2 Delivery O2 Flow Rate FiO2 03/17/19 20:25 96 03/17/19 16:32 97.3 66 20 120/72 (88) 03/16/19 23:42 Room Air I & O 03/16/19 03/16/19 03/17/19 14:59 22:59 06:59 Intake Total 480 ml 240 ml 120 ml Balance 480 ml 240 ml 120 ml Current Medications: I have reviewed the current psychotropics carefully including drug interactions. Risk benefit ratio favors no change other than as noted in my dictated progress note. Diagnosis: Problems: (1) Mild cognitive impairment (2) Schizophrenia (3) Bipolar affective disorder, currently manic, severe, with psychosis (4) Anxiety disorder (5) Bipolar affective, mixed, sev w/ psych (6) Isolated seizures (7) Schizoaffective disorder, bipolar type (8) Psychosis, atypical (9) Impulse control disorder AISHA MONZON MD Mar 17, 2019 22:34
[2019-03-18] MEDS: LEVOTHYROXINE 125 MCG TABLET PO SCH (05:35)
[2019-03-18 05:52] VITALS: BP 114/71
[2019-03-18 06:26] LABS: AMORPHOUS SEDIMENT,UR PRESENT /HPF; BACTERIA,URINE MANY /HPF (0-FEW); BILIRUBIN,URINE NEG (NEG); CLARITY,URINE HAZY; COLOR,URINE YELLOW; GLUCOSE,URINE NEG (NEG); NITRITE,URINE NEG (NEG); RBC,URINE RARE /HPF (0-2); SQUAMOUS EPITHELIAL CELL,UR FEW /LPF; UROBILINOGEN,URINE 0.2 mg/dL (0.2 mg/dL); WBC,URINE >40 /HPF (0-4)
[2019-03-18 06:52] LABS: BASO % 0 % (0-3); EOS # 0.1 x10^3/uL (0.0-0.7); EOS % 2 % (0-3); HEMATOCRIT 35.9 % (39.0-53.0); HEMOGLOBIN 12.1 g/dL (13.0-17.5); LYMPH # 2.2 x10^3/uL (1.0-4.8); LYMPH % 50 % (24-48); MEAN CORPUSCULAR HEMOGLOBIN 33 pg (25-35); MEAN CORPUSCULAR HGB CONC 34 g/dL (31-37); MEAN CORPUSCULAR VOLUME 99 fL (79-100); MONO # 0.5 x10^3/uL (0.0-1.1); MONO % 11 % (0-9); NEUT # 1.7 x10^3uL (1.8-7.7); NEUT % 38 % (31-73); PLATELET COUNT 73 x10^3/uL (140-400); RED BLOOD COUNT 3.65 x10^6/uL (4.30-5.70); RED CELL DISTRIBUTION WIDTH 15.1 % (11.5-14.5); WHITE BLOOD COUNT 4.4 x10^3/uL (4.0-11.0)
[2019-03-18 07:12] LABS: ALBUMIN 3.1 g/dL (3.4-5.0); ALBUMIN/GLOBULIN RATIO 0.8 (1.0-1.7); CALCIUM 9.1 mg/dL (8.5-10.1); CREATININE 1.1 mg/dL (0.7-1.3); GFR 66.2; POTASSIUM 4.4 mmol/L (3.5-5.1); TOTAL BILIRUBIN 0.4 mg/dL (0.2-1.0); TOTAL PROTEIN 7.1 g/dL (6.4-8.2)
[2019-03-18] MEDS: POTASSIUM CHLORIDE 20 MEQ TABLET.ER. PO SCH ×2 (08:22→19:48)
[2019-03-18] MEDS: OLANZapine 10 MG TABLET PO SCH (08:22)
[2019-03-18] MEDS: TAMSULOSIN 0.4 MG CAP.ER.24H. PO SCH (08:23)
[2019-03-18] MEDS: levETIRAcetam 500 MG TABLET PO SCH ×2 (08:26→19:48)
[2019-03-18] MEDS: BENZTROPINE MESYLATE 1 MG TABLET PO SCH ×2 (08:26→19:48)
[2019-03-18] MEDS: ASPIRIN 81 MG TAB.CHEW PO SCH (08:26)
[2019-03-18] MEDS: LACTOBACILLUS RHAMNOSUS GG 1 CAPSULE. PO SCH ×2 (08:26→19:48)
[2019-03-18] MEDS: ASCORBIC ACID 500 MG TABLET PO SCH ×2 (08:26→17:25)
[2019-03-18] MEDS: busPIRone 10 MG TABLET. PO SCH ×2 (08:26→19:48)
[2019-03-18] MEDS: CALCIUM CARB/VIT D3 500/200 TABLET PO SCH (08:26)
[2019-03-18] MEDS: DOCUSATE SODIUM 100 MG CAPSULE PO SCH (08:26)
[2019-03-18] MEDS: MULTIVITAMIN with MINERAL TABLET. PO SCH (08:27)
[2019-03-18] MEDS: DIVALPROEX 125 MG CAP.SPRINK PO SCH ×2 (08:27→19:48)
[2019-03-18] MEDS: FERROUS SULFATE 325 MG TABLET. PO SCH ×2 (08:27→17:25)
[2019-03-18] MEDS: POLYETHYLENE GLYCOL 3350 17 GM PACKET. PO SCH (08:28)
[2019-03-18] MEDS: BUMETANIDE 1 MG TABLET PO SCH (08:28)
[2019-03-18 08:59] VITALS: BP 116/76
[2019-03-18] MEDS: traMADol 50 MG TABLET PO SCH ×2 (09:00→19:50)
[2019-03-18] MEDS: METOPROLOL SUCC 24HR ER 25 MG TAB.ER.24H. PO SCH (09:01)
[2019-03-18 15:42] VITALS: BP 124/76
[2019-03-18] MEDS: SIMVASTATIN 20 MG TABLET PO SCH (19:48)
[2019-03-18] MEDS: MIRTAZAPINE 7.5 MG TABLET. PO SCH (19:50)
--- NOTE | 2019-03-18 22:11 | PDOC ---
Exam Note: Venkat Note: Please also refer to the separate dictated note~for this date of service dictated separately.~Patient seen individually. Discussed the patient with Nursing staff reviewed the chart.~Reviewed interim history and current functioning. Reviewed vital signs,~Labs/ Radiology~and current medications noted below. Continue current treatment with the changes noted in the dictated addendum note Assessment: Vital Signs/I&O: Vital Signs Date Time Temp Pulse Resp B/P (MAP) Pulse Ox O2 Delivery O2 Flow Rate FiO2 03/18/19 20:50 95 03/18/19 15:42 97.3 61 16 124/76 (92) Room Air I & O 03/17/19 03/17/19 03/18/19 15:00 23:00 07:00 Intake Total 120 ml 420 ml Balance 120 ml 420 ml Labs: Laboratory Tests Test 03/18/19 05:55 03/18/19 06:28 Urine Collection Type Unknown Urine Color Yellow Urine Clarity Hazy Urine pH 6.5 Urine Specific [place] 1.020 Urine Protein Neg (NEG-TRACE) Urine Glucose (UA) Neg mg/dL (NEG) Urine Ketones (Stick) 15 mg/dL (NEG) Urine Blood Neg (NEG) Urine Nitrite Neg (NEG) Urine Bilirubin Neg (NEG) Urine Urobilinogen Dipstick 0.2 mg/dL (0.2 mg/dL) Urine Leukocyte Esterase Mod (NEG) Urine RBC Rare /HPF (0-2) Urine WBC >40 /HPF (0-4) Urine Squamous Epithelial Cells Few /LPF Urine Amorphous Sediment Present /HPF Urine Bacteria Many /HPF (0-FEW) Urine Mucus Slight /LPF White Blood Count 4.4 x10^3/uL (4.0-11.0) Red Blood Count 3.65 x10^6/uL (4.30-5.70) L Hemoglobin 12.1 g/dL (13.0-17.5) L Hematocrit 35.9 % (39.0-53.0) L Mean Corpuscular Volume 99 fL (79-100) Mean Corpuscular Hemoglobin 33 pg (25-35) Mean Corpuscular Hemoglobin Concent 34 g/dL (31-37) Red Cell Distribution Width 15.1 % (11.5-14.5) H Platelet Count 73 x10^3/uL (140-400) L Neutrophils (%) (Auto) 38 % (31-73) Lymphocytes (%) (Auto) 50 % (24-48) H Monocytes (%) (Auto) 11 % (0-9) H Eosinophils (%) (Auto) 2 % (0-3) Basophils (%) (Auto) 0 % (0-3) Neutrophils # (Auto) 1.7 x10^3uL (1.8-7.7) L Lymphocytes # (Auto) 2.2 x10^3/uL (1.0-4.8) Monocytes # (Auto) 0.5 x10^3/uL (0.0-1.1) Eosinophils # (Auto) 0.1 x10^3/uL (0.0-0.7) Basophils # (Auto) 0.0 x10^3/uL (0.0-0.2) Sodium Level 144 mmol/L (136-145) Potassium Level 4.4 mmol/L (3.5-5.1) Chloride Level 108 mmol/L (98-107) H Carbon Dioxide Level 31 mmol/L (21-32) Anion Gap 5 (6-14) L Blood Urea Nitrogen 22 mg/dL (8-26) Creatinine 1.1 mg/dL (0.7-1.3) Estimated GFR (Cockcroft-Gault) 66.2 BUN/Creatinine Ratio 20 (6-20) Glucose Level 77 mg/dL (70-99) Calcium Level 9.1 mg/dL (8.5-10.1) Total Bilirubin 0.4 mg/dL (0.2-1.0) Aspartate Amino Transferase (AST) 31 U/L (15-37) Alanine Aminotransferase (ALT) 24 U/L (16-63) Alkaline Phosphatase 64 U/L (46-116) Total Protein 7.1 g/dL (6.4-8.2) Albumin 3.1 g/dL (3.4-5.0) L Albumin/Globulin Ratio 0.8 (1.0-1.7) L Current Medications: I have reviewed the current psychotropics carefully including drug interactions. Risk benefit ratio favors no change other than as noted in my dictated progress note. Diagnosis: Problems: (1) Mild cognitive impairment (2) Delusions (3) Bipolar affective disorder, currently manic, severe, with psychosis (4) Anxiety disorder (5) Bipolar affective, mixed, sev w/ psych (6) Schizoaffective disorder, bipolar type (7) Impulse control disorder AISHA MONZON MD Mar 18, 2019 22:11
--- NOTE | 2019-03-18 22:12 | PN ---
DATE: 03/16/2019 PSYCHIATRIC PROGRESS NOTE. This late entry of 03/16/2019 covers elements not covered in my initial note. SUBJECTIVE: I met with the patient in the evening. The patient slept 6-1/2 hours previous night. He had a fall at night. X-ray of bilateral hip and pelvis were unremarkable. In the morning, he was asking nursing staff for a beer and obsessed about a bookshelf. He is also obsessed about his Bible even though he has it in his room. REVIEW OF SYSTEMS: Ambulation impaired, with an unsteady gait with walker. No CV, , pulmonary, eye, ENT system symptoms on review. MENTAL STATUS EXAM: Oriented to himself and situation. Speech has some latency, low in volume, coherent, abstraction fair, computation impaired, language function intact, attention span short. Mood and affect remain somewhat withdrawn. LABORATORY DATA: Reviewed. IMPRESSION: Unchanged from initial note. PLAN: No change from initial note. AISHA MONZON MD DR: DEYSI/lewis JOB#: [id number] / [id number]
--- NOTE | 2019-03-19 00:53 | PN ---
DATE: 03/18/2019 PSYCHIATRIC PROGRESS NOTE This note covers elements not covered in my initial note of 03/18/2019. SUBJECTIVE: I met with the patient in the evening. The patient slept 6-3/4 hours previous night. He has been pleasant, cooperative, did well at night. Platelet count is low at 73. Dr. Jensen has been consulted, no changes made in his medications, but we will do a pharmacy consult and perhaps stop the Depakote as this could be implicated in the low platelet count. UA has reflex to culture. REVIEW OF SYSTEMS: Ambulation impaired with walker, now in wheelchair. No CV, , pulmonary, eye, ENT system symptoms on review. MENTAL STATUS EXAM: Oriented to himself and situation. Speech has some latency, coherent. He is shaking my hands. Abstraction fair, computation impaired, language function intact. Readily remembers my name. No suicidal or homicidal ideation. UA is positive for CRE. LABORATORY DATA: Reviewed. IMPRESSION: Bipolar 1 disorder, manic with psychotic features; anxiety disorder, unspecified; urinary tract infection. Rest unchanged. PLAN: Continue current psychotropics. May stop Depakote if pharmacy consult suggests. This could be implicated of worsening his platelet counts. He has been on Depakote for a long period of time with no effects on platelets and this would be unusual, but we will again await the pharmacy's suggestions. AISHA MONZON MD DR: DEYSI/lewis JOB#: [id number] / [id number]
--- NOTE | 2019-03-19 03:34 | PN ---
DATE: 03/17/2019 PSYCHIATRIC PROGRESS NOTE This late entry 03/17/2019 covers elements not covered in my initial note. SUBJECTIVE: I met with the patient in the evening. The patient slept 7 hours previous night. Appetite 80%. He was staffed at a treatment team meeting with the entire team in the morning, met with him individually at length in the evening. He has been somewhat more confused. He probably has a UTI pre, but is untreated per Dr. Jensen, and I have discussed with nursing staff to contact the labs to extend the spectrum of tested antibiotics to see if anything else positive comes out. He has been pleasant, calm, compliant with his medications, irritable with redirection. REVIEW OF SYSTEMS: Ambulation impaired, in wheelchair, and some neck stiffness. No CV, , pulmonary, eye, or ENT system symptoms on review. MENTAL STATUS EXAM: Oriented to himself and situation. Speech is coherent, abstraction fair, computation impaired, language function intact, attention span short. He remains somewhat hyper-zoroastrian. IMPRESSION: Unchanged from initial note. PLAN: No change from initial note and treat UTI as indicated. MAN Emiliano MONZON MD DR: DEYSI/lewis JOB#: [id number] / [id number]
[2019-03-19] MEDS: LEVOTHYROXINE 125 MCG TABLET PO SCH (05:48)
[2019-03-19 05:58] VITALS: BP 111/73
[2019-03-19] MEDS: ASPIRIN 81 MG TAB.CHEW PO SCH (08:43)
[2019-03-19] MEDS: TAMSULOSIN 0.4 MG CAP.ER.24H. PO SCH (08:43)
[2019-03-19] MEDS: BUMETANIDE 1 MG TABLET PO SCH (08:43)
[2019-03-19] MEDS: ASCORBIC ACID 500 MG TABLET PO SCH ×2 (08:43→18:14)
[2019-03-19] MEDS: DOCUSATE SODIUM 100 MG CAPSULE PO SCH (08:43)
[2019-03-19] MEDS: POLYETHYLENE GLYCOL 3350 17 GM PACKET. PO SCH (08:43)
[2019-03-19] MEDS: LACTOBACILLUS RHAMNOSUS GG 1 CAPSULE. PO SCH ×2 (08:43→19:35)
[2019-03-19] MEDS: CALCIUM CARB/VIT D3 500/200 TABLET PO SCH (08:45)
[2019-03-19] MEDS: DIVALPROEX 125 MG CAP.SPRINK PO SCH ×2 (08:45→19:31)
[2019-03-19] MEDS: FERROUS SULFATE 325 MG TABLET. PO SCH ×2 (08:46→17:00)
[2019-03-19] MEDS: busPIRone 10 MG TABLET. PO SCH ×2 (08:46→19:35)
[2019-03-19] MEDS: BENZTROPINE MESYLATE 1 MG TABLET PO SCH ×2 (08:46→19:35)
[2019-03-19] MEDS: levETIRAcetam 500 MG TABLET PO SCH ×2 (08:46→19:31)
[2019-03-19] MEDS: POTASSIUM CHLORIDE 20 MEQ TABLET.ER. PO SCH ×2 (08:46→19:37)
[2019-03-19] MEDS: MULTIVITAMIN with MINERAL TABLET. PO SCH (08:46)
[2019-03-19] MEDS: traMADol 50 MG TABLET PO SCH ×2 (08:47→19:37)
[2019-03-19] MEDS: OLANZapine 10 MG TABLET PO SCH (08:48)
[2019-03-19] MEDS: METOPROLOL SUCC 24HR ER 25 MG TAB.ER.24H. PO SCH (11:26)
[2019-03-19 15:30] VITALS: BP 113/70
[2019-03-19] MEDS: MIRTAZAPINE 7.5 MG TABLET. PO SCH (19:35)
[2019-03-19] MEDS: SIMVASTATIN 20 MG TABLET PO SCH (19:35)
[2019-03-20] MEDS: traZODone 50 MG TABLET. PO PRN (01:53)
[2019-03-20] MEDS: LEVOTHYROXINE 125 MCG TABLET PO SCH (04:57)
[2019-03-20 06:20] VITALS: BP 130/72
[2019-03-20] MEDS: DIVALPROEX 125 MG CAP.SPRINK PO SCH (07:35)
[2019-03-20] MEDS: LACTOBACILLUS RHAMNOSUS GG 1 CAPSULE. PO SCH ×2 (07:36→19:47)
[2019-03-20] MEDS: TAMSULOSIN 0.4 MG CAP.ER.24H. PO SCH (07:37)
[2019-03-20] MEDS: busPIRone 10 MG TABLET. PO SCH ×2 (07:37→19:47)
[2019-03-20] MEDS: METOPROLOL SUCC 24HR ER 25 MG TAB.ER.24H. PO SCH (07:38)
[2019-03-20] MEDS: levETIRAcetam 500 MG TABLET PO SCH ×2 (07:40→19:48)
[2019-03-20] MEDS: ASPIRIN 81 MG TAB.CHEW PO SCH (07:40)
[2019-03-20] MEDS: OLANZapine 10 MG TABLET PO SCH (07:40)
[2019-03-20] MEDS: POTASSIUM CHLORIDE 20 MEQ TABLET.ER. PO SCH ×2 (07:40→19:48)
[2019-03-20] MEDS: CALCIUM CARB/VIT D3 500/200 TABLET PO SCH (07:41)
[2019-03-20] MEDS: BENZTROPINE MESYLATE 1 MG TABLET PO SCH ×2 (07:42→19:47)
[2019-03-20] MEDS: FERROUS SULFATE 325 MG TABLET. PO SCH ×2 (07:42→16:44)
[2019-03-20] MEDS: ASCORBIC ACID 500 MG TABLET PO SCH ×2 (07:42→16:44)
[2019-03-20] MEDS: MULTIVITAMIN with MINERAL TABLET. PO SCH (07:42)
[2019-03-20] MEDS: DOCUSATE SODIUM 100 MG CAPSULE PO SCH (07:42)
[2019-03-20] MEDS: BUMETANIDE 1 MG TABLET PO SCH (07:43)
[2019-03-20] MEDS: POLYETHYLENE GLYCOL 3350 17 GM PACKET. PO SCH (07:45)
[2019-03-20] MEDS: traMADol 50 MG TABLET PO SCH ×2 (07:47→19:48)
[2019-03-20 08:06] LABS: BASO % 0 % (0-3); EOS # 0.1 x10^3/uL (0.0-0.7); EOS % 3 % (0-3); HEMATOCRIT 36.2 % (39.0-53.0); HEMOGLOBIN 12.1 g/dL (13.0-17.5); LYMPH % 48 % (24-48); MEAN CORPUSCULAR HEMOGLOBIN 33 pg (25-35); MEAN CORPUSCULAR HGB CONC 34 g/dL (31-37); MEAN CORPUSCULAR VOLUME 97 fL (79-100); MONO # 0.4 x10^3/uL (0.0-1.1); MONO % 11 % (0-9); NEUT # 1.6 x10^3uL (1.8-7.7); NEUT % 38 % (31-73); PLATELET COUNT 66 x10^3/uL (140-400); RED BLOOD COUNT 3.72 x10^6/uL (4.30-5.70); RED CELL DISTRIBUTION WIDTH 14.9 % (11.5-14.5); WHITE BLOOD COUNT 4.1 x10^3/uL (4.0-11.0)
[2019-03-20 08:20] LABS: ALBUMIN 3.1 g/dL (3.4-5.0); ALBUMIN/GLOBULIN RATIO 0.7 (1.0-1.7); CREATININE 1.1 mg/dL (0.7-1.3); GFR 66.2; POTASSIUM 4.1 mmol/L (3.5-5.1); TOTAL BILIRUBIN 0.5 mg/dL (0.2-1.0); TOTAL PROTEIN 7.3 g/dL (6.4-8.2)
[2019-03-20 08:22] LABS: VAL ACID 118 mcg/mL (50-100)
[2019-03-20 08:30] LABS: PLT ESTIMATE DECREASED (ADEQUATE)
[2019-03-20 08:31] LABS: ANISOCYTOSIS SLIGHT; POLYCHROMASIA SLIGHT
[2019-03-20 17:00] VITALS: BP 114/72
--- NOTE | 2019-03-20 18:20 | PN ---
DATE: 03/19/2019 SUBJECTIVE: The patient was seen today, met with the staff, chart reviewed and also covering for Dr. Connors. The patient is still confused, reacting to external stimuli and also trying to hold and catch imaginary objects. OBSERVATIONS: VITAL SIGNS: Temperature 98.5, blood pressure 111/73, pulse 52, respirations 18, O2 sat 97%. Slept about 7 hours last night. The patient's appetite is fair. CURRENT MEDICATIONS: The patient's current medications include BuSpar 10 mg b.i.d., lorazepam 0.5 mg q. 2 hours p.r.n., olanzapine 12.5 mg daily, Depakote 1000 mg daily, mirtazapine 7.5 mg at night, Depakote 1500 mg at night. Also on trazodone 50 mg at night, Cogentin 1 mg b.i.d. LABORATORY DATA: The patient's lab reviewed. The patient's Depakote level was 84 on 03/03/2019 and level was 120 on 03/02/2019. The patient's CT scan showed no acute intracranial hemorrhage or midline shift or mass effects or hydrocephalus and no evidence of any fractures. ASSESSMENT: 1. Bipolar disorder type 1, mixed, with psychotic features. 2. Schizoaffective disorder. 3. Anxiety disorder, unspecified. 4. Impulse control disorder, unspecified. PLAN: The patient will continue with the above medications. We will repeat the Depakote level. The patient currently not presenting with any major side effects. ERASTO DECKER MD DR: GREGORIO/lewis JOB#: [id number] / [id number]
[2019-03-20] MEDS: SIMVASTATIN 20 MG TABLET PO SCH (19:47)
[2019-03-20] MEDS: MIRTAZAPINE 7.5 MG TABLET. PO SCH (19:47)
--- NOTE | 2019-03-21 01:44 | PN ---
DATE: 03/20/2019 SUBJECTIVE: The patient was seen today, met with the staff, chart reviewed and also covering for Dr. Connors. The patient's behavior remains the same. He is somewhat hypomanic, pleasant, and able to hold a reasonable conversation. The patient did not present with any major mood swings. The patient continues to have problems with cervical dystonia and claims he had this problem for almost 40 years. OBSERVATION: VITAL SIGNS: Temperature 97.4, blood pressure 130/72, pulse 72, respirations 20, O2 sat 93%. Slept about 6 hours last night. The patient's appetite is normal. LABORATORY DATA: The patient's lab reviewed. CURRENT MEDICATIONS: Include BuSpar 10 mg b.i.d., lorazepam 0.5 mg q. 2 hours p.r.n., olanzapine 12.5 mg daily, Depakote 1000 mg daily, mirtazapine 7.5 mg at night, Depakote also 500 mg at night, trazodone 50 mg at night p.r.n. The patient is also on Keppra 500 mg b.i.d. The patient is not having any side effects to the medications. The patient's lab reviewed. The patient's white cell count was 44.1, RBC 3.72, hemoglobin 12.1. The patient's total platelet count has been decreased. The patient's medical history includes osteoporosis, history of GI bleed, hypertension, generalized anxiety disorder, frequent falls, hyperlipidemia, osteoarthritis, dysphagia, hypothyroidism, and also history of seizure disorder. ASSESSMENT: 1. Bipolar disorder type 1, mixed, with psychotic features. 2. Schizoaffective disorder, bipolar type, mixed with psychotic features. 3. Mild cognitive impairment. 4. Anxiety disorder, unspecified. PLAN: Continue with the treatment. Medical followup by Dr. Jensen. The patient's Depakote level was 84 and the patient's platelet count was 73. Plan is to continue with the current treatment plan. ERASTO DECKER MD DR: GREGORIO/lewis JOB#: [id number] / [id number]
[2019-03-21] MEDS: LEVOTHYROXINE 125 MCG TABLET PO SCH (05:10)
[2019-03-21 06:14] VITALS: BP 114/76
[2019-03-21] MEDS: POLYETHYLENE GLYCOL 3350 17 GM PACKET. PO SCH (07:50)
[2019-03-21] MEDS: METOPROLOL SUCC 24HR ER 25 MG TAB.ER.24H. PO SCH (07:51)
[2019-03-21] MEDS: DOCUSATE SODIUM 100 MG CAPSULE PO SCH (07:51)
[2019-03-21] MEDS: levETIRAcetam 500 MG TABLET PO SCH ×2 (07:51→20:33)
[2019-03-21] MEDS: BENZTROPINE MESYLATE 1 MG TABLET PO SCH ×2 (07:52→20:33)
[2019-03-21] MEDS: TAMSULOSIN 0.4 MG CAP.ER.24H. PO SCH (07:52)
[2019-03-21] MEDS: CALCIUM CARB/VIT D3 500/200 TABLET PO SCH (07:52)
[2019-03-21] MEDS: ASCORBIC ACID 500 MG TABLET PO SCH ×2 (07:52→17:43)
[2019-03-21] MEDS: ASPIRIN 81 MG TAB.CHEW PO SCH (07:52)
[2019-03-21] MEDS: POTASSIUM CHLORIDE 20 MEQ TABLET.ER. PO SCH ×2 (07:53→20:33)
[2019-03-21] MEDS: FERROUS SULFATE 325 MG TABLET. PO SCH ×2 (07:53→17:43)
[2019-03-21] MEDS: OLANZapine 10 MG TABLET PO SCH (07:53)
[2019-03-21] MEDS: MULTIVITAMIN with MINERAL TABLET. PO SCH (07:53)
[2019-03-21] MEDS: busPIRone 10 MG TABLET. PO SCH ×2 (07:53→20:33)
[2019-03-21] MEDS: LACTOBACILLUS RHAMNOSUS GG 1 CAPSULE. PO SCH ×2 (07:53→20:33)
[2019-03-21] MEDS: BUMETANIDE 1 MG TABLET PO SCH (07:54)
[2019-03-21] MEDS: traMADol 50 MG TABLET PO SCH ×2 (07:55→20:34)
[2019-03-21] MEDS: LORazepam 0.5 MG TABLET PO PRN (15:53)
[2019-03-21] MEDS ORDERED: POLYVINYL ALCOHOL 1.4% OPHTH SOLUTION 15ML BOTTLE. OU PRN (16:15)
[2019-03-21 16:27] VITALS: BP 157/80
[2019-03-21] MEDS: MIRTAZAPINE 7.5 MG TABLET. PO SCH (20:33)
[2019-03-21] MEDS: SIMVASTATIN 20 MG TABLET PO SCH (20:34)
--- NOTE | 2019-03-21 23:42 | PN ---
DATE: 03/21/2019 SUBJECTIVE: The patient was seen today, met with the staff, chart reviewed. The patient's behavior remains the same. He is withdrawn, emotionally labile at times. The patient continues to have problems with his cervical dystonia. The patient slept about 6 hours last night. The patient's appetite is fair. OBJECTIVE: VITAL SIGNS: Temperature 97.2, blood pressure 114/76, pulse 72, respiration 18, O2 sat 92%. The patient's current medications include BuSpar 10 mg b.i.d., lorazepam 0.5 mg q. 2 hours p.r.n., olanzapine 12.5 mg daily, Depakote 1000 mg daily, mirtazapine 7.5 mg at night, Depakote 500 mg at night, trazodone 50 mg at night p.r.n. The patient is also on Keppra 500 mg b.i.d. The patient is not having any side effects to the medications. Still there is concern about the patient's white cell count. Her recent labs showed white cell count of 4.1, which is down from 4.4, neutrophil count was 1.6. CURRENT MEDICATIONS: The patient's current medications include BuSpar 10 mg b.i.d., lorazepam 0.5 mg q.2 hours p.r.n., olanzapine 12.5 mg daily, mirtazapine 7.5 mg at night, trazodone 50 mg at night p.r.n. She is also on Keppra 500 mg b.i.d., Cogentin 1 mg b.i.d. The patient's Depakote was discontinued as this is considered one of the reasons for the patient's drop in the white cell count, continue to evaluate. The patient is currently not having any problems like seizures. No prior history of seizure disorder. ASSESSMENT: 1. Bipolar disorder type 1, mixed, with psychotic features. 2. Schizoaffective disorder, bipolar type, mixed with psychotic features. 3. Mild cognitive impairment. 4. Anxiety disorder, unspecified. PLAN: Continue with the treatment. The patient is off Depakote at this time. LENGTH OF STAY: 5 days. ERASTO DECKER MD DR: GREGORIO/lewis JOB#: [id number] / [id number]
[2019-03-22] MEDS: LEVOTHYROXINE 125 MCG TABLET PO SCH (05:29)
[2019-03-22 06:04] VITALS: BP 128/82
[2019-03-22] MEDS: ASCORBIC ACID 500 MG TABLET PO SCH ×2 (07:50→17:00)
[2019-03-22] MEDS: FERROUS SULFATE 325 MG TABLET. PO SCH ×2 (07:50→17:00)
[2019-03-22] MEDS: ASPIRIN 81 MG TAB.CHEW PO SCH (07:50)
[2019-03-22] MEDS: levETIRAcetam 500 MG TABLET PO SCH ×2 (07:51→19:36)
[2019-03-22] MEDS: TAMSULOSIN 0.4 MG CAP.ER.24H. PO SCH (07:51)
[2019-03-22] MEDS: BENZTROPINE MESYLATE 1 MG TABLET PO SCH ×2 (07:51→19:36)
[2019-03-22] MEDS: LACTOBACILLUS RHAMNOSUS GG 1 CAPSULE. PO SCH ×2 (07:51→19:36)
[2019-03-22] MEDS: DOCUSATE SODIUM 100 MG CAPSULE PO SCH (07:51)
[2019-03-22] MEDS: busPIRone 10 MG TABLET. PO SCH ×2 (07:51→19:36)
[2019-03-22] MEDS: POLYETHYLENE GLYCOL 3350 17 GM PACKET. PO SCH (07:52)
[2019-03-22] MEDS: POTASSIUM CHLORIDE 20 MEQ TABLET.ER. PO SCH ×2 (07:52→19:36)
[2019-03-22] MEDS: CALCIUM CARB/VIT D3 500/200 TABLET PO SCH (07:52)
[2019-03-22] MEDS: MULTIVITAMIN with MINERAL TABLET. PO SCH (07:53)
[2019-03-22] MEDS: METOPROLOL SUCC 24HR ER 25 MG TAB.ER.24H. PO SCH (07:54)
[2019-03-22] MEDS: OLANZapine 10 MG TABLET PO SCH (07:54)
[2019-03-22] MEDS: BUMETANIDE 1 MG TABLET PO SCH (08:00)
[2019-03-22] MEDS: traMADol 50 MG TABLET PO SCH ×2 (08:01→19:38)
[2019-03-22] MEDS: LORazepam 0.5 MG TABLET PO PRN ×2 (09:08→15:51)
[2019-03-22] MEDS ORDERED: OLANZapine 5 MG TABLET PO ONE ×2 (13:45→21:00)
[2019-03-22 16:12] VITALS: BP 112/70
[2019-03-22] MEDS: MIRTAZAPINE 7.5 MG TABLET. PO SCH (19:36)
[2019-03-22] MEDS: SIMVASTATIN 20 MG TABLET PO SCH (19:36)
--- NOTE | 2019-03-23 03:42 | PN ---
DATE: 03/22/2019 SUBJECTIVE: The patient was seen today, met with the staff, chart reviewed. The patient continues to have anger issues, gets upset easily, unable to calm down. Also, has some emotional lability. The patient apparently has to be kept in quiet area because he had become very angry, agitated, unable to calm down. The patient is also upset because he could not be discharged to the place he wanted to go. The patient was apologetic. The patient states sometimes he feels that he cannot control it. OBJECTIVE: VITAL SIGNS: The patient's vital signs are stable. Appetite is good. Sleep is fairly good. MEDICATIONS: The patient's current medications include BuSpar 10 mg b.i.d., lorazepam 0.5 mg q. 2 hours p.r.n., olanzapine 12.5 mg daily, Depakote 1000 mg daily, mirtazapine 7.5 mg at night, Depakote 500 mg at night, trazodone 50 mg at night p.r.n. The patient is also on Keppra 500 mg b.i.d. The patient is not having any side effects. LABORATORY DATA: The patient's lab reviewed. ASSESSMENT: 1. Bipolar disorder type 1, mixed, with psychotic features. 2. Schizoaffective disorder, bipolar type, with psychotic features. 3. Mild cognitive impairment. 4. Anxiety disorder, unspecified. PLAN: The patient's current medications include BuSpar 10 mg b.i.d., lorazepam 0.5 mg q. 2 hours p.r.n., olanzapine 12.5 mg daily that was increased to 15 mg daily and the patient's Depakote was discontinued yesterday because of low platelet count. The patient is also on levothyroxine 125 mcg daily. He is also on tramadol 50 mg b.i.d. p.o. LENGTH OF STAY: 3-5 days. ERASTO DECKER MD DR: GREGORIO/lewis JOB#: [id number] / [id number]
[2019-03-23] MEDS: LEVOTHYROXINE 125 MCG TABLET PO SCH (05:45)
[2019-03-23 06:16] VITALS: BP 112/74
[2019-03-23] MEDS: FERROUS SULFATE 325 MG TABLET. PO SCH ×2 (07:49→17:04)
[2019-03-23] MEDS: ASCORBIC ACID 500 MG TABLET PO SCH ×2 (07:49→17:04)
[2019-03-23] MEDS: ASPIRIN 81 MG TAB.CHEW PO SCH (07:49)
[2019-03-23] MEDS: BUMETANIDE 1 MG TABLET PO SCH (07:50)
[2019-03-23] MEDS: busPIRone 10 MG TABLET. PO SCH ×2 (07:50→20:45)
[2019-03-23] MEDS: DOCUSATE SODIUM 100 MG CAPSULE PO SCH (07:50)
[2019-03-23] MEDS: BENZTROPINE MESYLATE 1 MG TABLET PO SCH ×2 (07:50→20:46)
[2019-03-23] MEDS: LACTOBACILLUS RHAMNOSUS GG 1 CAPSULE. PO SCH ×2 (07:53→20:45)
[2019-03-23] MEDS: TAMSULOSIN 0.4 MG CAP.ER.24H. PO SCH (07:53)
[2019-03-23] MEDS: levETIRAcetam 500 MG TABLET PO SCH ×2 (07:53→20:45)
[2019-03-23] MEDS: POLYETHYLENE GLYCOL 3350 17 GM PACKET. PO SCH (07:54)
[2019-03-23] MEDS: POTASSIUM CHLORIDE 20 MEQ TABLET.ER. PO SCH ×2 (07:54→20:45)
[2019-03-23] MEDS: CALCIUM CARB/VIT D3 500/200 TABLET PO SCH (07:54)
[2019-03-23] MEDS: METOPROLOL SUCC 24HR ER 25 MG TAB.ER.24H. PO SCH (07:55)
[2019-03-23] MEDS: MULTIVITAMIN with MINERAL TABLET. PO SCH (07:55)
[2019-03-23] MEDS: traMADol 50 MG TABLET PO SCH ×2 (08:04→20:50)
[2019-03-23] MEDS: OLANZapine 10 MG TABLET PO SCH (08:04)
[2019-03-23] MEDS: LORazepam 0.5 MG TABLET PO PRN ×2 (14:15→17:04)
[2019-03-23 15:44] VITALS: BP 130/81
[2019-03-23] MEDS: MIRTAZAPINE 7.5 MG TABLET. PO SCH (20:46)
[2019-03-23] MEDS: SIMVASTATIN 20 MG TABLET PO SCH (20:46)
[2019-03-23] MEDS: traZODone 50 MG TABLET. PO PRN (21:34)
--- NOTE | 2019-03-23 23:26 | PN ---
DATE: 03/23/2019 SUBJECTIVE: The patient was seen today, met with the staff, chart reviewed. The patient is getting more delusional, religiously preoccupied, trying to get out of his chair. He is a high fall risk. The patient also has pressure of speech, emotional lability, impulse control problems. OBJECTIVE: VITAL SIGNS: Temperature 97.5, blood pressure 112/74, pulse 64, respirations 16, O2 sat 93%. Slept about 6 hours last night. The patient's appetite is fair. MEDICATIONS: The patient's current medications include olanzapine 15 mg daily, BuSpar 10 mg b.i.d., lorazepam 0.5 mg q. 2 hours p.r.n., mirtazapine 7.5 mg at night, trazodone 50 mg at night p.r.n., Keppra 500 mg b.i.d. The patient's lab reviewed. The patient's white cell count 4.1, platelet count 66. At the recommendation of Dr. Jensen, the patient's Depakote was discontinued because of the low platelet count and we will continue to evaluate and the patient may need to be on a mood stabilizer. ASSESSMENT: 1. Bipolar disorder type 1, mixed, with psychotic features. 2. Schizoaffective disorder, bipolar type with psychotic features. 3. Mild cognitive impairment. 4. Generalized anxiety disorder. The patient's valproic acid level was 84 before discontinuation. We will continue to evaluate. LENGTH OF STAY: 3-5 days. ERASTO DECKER MD DR: GREGORIO/lewis JOB#: [id number] / [id number]
[2019-03-24] MEDS: LEVOTHYROXINE 125 MCG TABLET PO SCH (05:57)
[2019-03-24 06:07] VITALS: BP 127/83
[2019-03-24 06:31] LABS: BASO % 1 % (0-3); EOS # 0.1 x10^3/uL (0.0-0.7); EOS % 2 % (0-3); HEMATOCRIT 33.1 % (39.0-53.0); HEMOGLOBIN 11.2 g/dL (13.0-17.5); LYMPH # 2.4 x10^3/uL (1.0-4.8); LYMPH % 40 % (24-48); MEAN CORPUSCULAR HEMOGLOBIN 33 pg (25-35); MEAN CORPUSCULAR HGB CONC 34 g/dL (31-37); MEAN CORPUSCULAR VOLUME 98 fL (79-100); MONO # 0.8 x10^3/uL (0.0-1.1); MONO % 14 % (0-9); NEUT # 2.7 x10^3uL (1.8-7.7); NEUT % 44 % (31-73); PLATELET COUNT 79 x10^3/uL (140-400); RED BLOOD COUNT 3.38 x10^6/uL (4.30-5.70); WHITE BLOOD COUNT 6.2 x10^3/uL (4.0-11.0)
[2019-03-24 06:46] LABS: ALBUMIN 2.9 g/dL (3.4-5.0); ALBUMIN/GLOBULIN RATIO 0.8 (1.0-1.7); CALCIUM 8.8 mg/dL (8.5-10.1); GFR 73.9; TOTAL BILIRUBIN 0.5 mg/dL (0.2-1.0); TOTAL PROTEIN 6.6 g/dL (6.4-8.2)
[2019-03-24] MEDS: FERROUS SULFATE 325 MG TABLET. PO SCH ×2 (08:12→17:00)
[2019-03-24] MEDS: ASPIRIN 81 MG TAB.CHEW PO SCH (08:12)
[2019-03-24] MEDS: busPIRone 10 MG TABLET. PO SCH ×2 (08:13→19:47)
[2019-03-24] MEDS: MULTIVITAMIN with MINERAL TABLET. PO SCH (08:13)
[2019-03-24] MEDS: traMADol 50 MG TABLET PO SCH ×2 (08:13→19:47)
[2019-03-24] MEDS: BENZTROPINE MESYLATE 1 MG TABLET PO SCH ×2 (08:13→19:47)
[2019-03-24] MEDS: POTASSIUM CHLORIDE 20 MEQ TABLET.ER. PO SCH ×2 (08:13→19:47)
[2019-03-24] MEDS: ASCORBIC ACID 500 MG TABLET PO SCH ×2 (08:13→17:00)
[2019-03-24] MEDS: TAMSULOSIN 0.4 MG CAP.ER.24H. PO SCH (08:13)
[2019-03-24] MEDS: LACTOBACILLUS RHAMNOSUS GG 1 CAPSULE. PO SCH ×2 (08:13→19:46)
[2019-03-24] MEDS: CALCIUM CARB/VIT D3 500/200 TABLET PO SCH (08:13)
[2019-03-24] MEDS: BUMETANIDE 1 MG TABLET PO SCH (08:14)
[2019-03-24] MEDS: levETIRAcetam 500 MG TABLET PO SCH ×2 (08:14→19:47)
[2019-03-24] MEDS: METOPROLOL SUCC 24HR ER 25 MG TAB.ER.24H. PO SCH (08:14)
[2019-03-24] MEDS: DOCUSATE SODIUM 100 MG CAPSULE PO SCH (08:14)
[2019-03-24] MEDS: POLYETHYLENE GLYCOL 3350 17 GM PACKET. PO SCH (08:15)
[2019-03-24] MEDS: OLANZapine 10 MG TABLET PO SCH (08:15)
[2019-03-24] MEDS: LORazepam 0.5 MG TABLET PO PRN (09:12)
[2019-03-24 15:55] VITALS: BP 120/74
[2019-03-24] MEDS: MIRTAZAPINE 7.5 MG TABLET. PO SCH (19:44)
[2019-03-24] MEDS: SIMVASTATIN 20 MG TABLET PO SCH (19:44)
[2019-03-24] MEDS: traZODone 50 MG TABLET. PO PRN (19:47)
--- NOTE | 2019-03-25 00:23 | PN ---
DATE: 03/24/2019 SUBJECTIVE: The patient was seen today, met with the staff, chart reviewed. The patient continues to exhibit behavior problems, pressured speech, racing thoughts, poor impulse control, low frustration tolerance and religiously preoccupied. OBJECTIVE: VITAL SIGNS: Temperature 96.8, blood pressure 127/83, pulse 60, respirations 20, O2 sat 94%. Slept about 5.5 hours last night. The patient's appetite is fair. MEDICATIONS: The patient's current medications include olanzapine 15 mg daily, BuSpar 10 mg b.i.d., lorazepam 0.5 mg q. 2 hours p.r.n., mirtazapine 7.5 mg at night, trazodone 50 mg at night p.r.n. and Keppra 500 mg b.i.d. The patient's lab reviewed. The patient apparently off Depakote because of the decreased platelet counts. ASSESSMENT: 1. Bipolar disorder type 1, mixed, with psychotic features. 2. Schizoaffective disorder, bipolar type, with psychotic features. 3. Mild cognitive impairment. 4. Generalized anxiety disorder. PLAN: Continue with the treatment. Increase Zyprexa to 20 mg daily. The patient's Depakote level was 84 before discontinuation. LENGTH OF STAY: 5 days. ERASTO DECKER MD DR: GREGORIO/lewis JOB#: [id number] / [id number]
[2019-03-25] MEDS: LEVOTHYROXINE 125 MCG TABLET PO SCH (05:07)
[2019-03-25 06:12] VITALS: BP 106/72
[2019-03-25] MEDS: levETIRAcetam 500 MG TABLET PO SCH ×2 (08:09→19:19)
[2019-03-25] MEDS: LACTOBACILLUS RHAMNOSUS GG 1 CAPSULE. PO SCH ×2 (08:10→19:19)
[2019-03-25] MEDS: DOCUSATE SODIUM 100 MG CAPSULE PO SCH (08:10)
[2019-03-25] MEDS: MULTIVITAMIN with MINERAL TABLET. PO SCH (08:10)
[2019-03-25] MEDS: CALCIUM CARB/VIT D3 500/200 TABLET PO SCH (08:10)
[2019-03-25] MEDS: BUMETANIDE 1 MG TABLET PO SCH (08:11)
[2019-03-25] MEDS: ASPIRIN 81 MG TAB.CHEW PO SCH (08:11)
[2019-03-25] MEDS: busPIRone 10 MG TABLET. PO SCH ×2 (08:11→19:19)
[2019-03-25] MEDS: FERROUS SULFATE 325 MG TABLET. PO SCH ×2 (08:11→16:49)
[2019-03-25] MEDS: BENZTROPINE MESYLATE 1 MG TABLET PO SCH ×2 (08:11→19:20)
[2019-03-25] MEDS: ASCORBIC ACID 500 MG TABLET PO SCH ×2 (08:11→16:49)
[2019-03-25] MEDS: POTASSIUM CHLORIDE 20 MEQ TABLET.ER. PO SCH ×2 (08:11→19:20)
[2019-03-25] MEDS: POLYETHYLENE GLYCOL 3350 17 GM PACKET. PO SCH (08:12)
[2019-03-25] MEDS: OLANZapine 10 MG TABLET PO SCH (08:14)
[2019-03-25] MEDS: TAMSULOSIN 0.4 MG CAP.ER.24H. PO SCH (08:14)
[2019-03-25] MEDS: traMADol 50 MG TABLET PO SCH ×2 (08:14→19:22)
[2019-03-25 09:17] VITALS: BP 104/71
[2019-03-25 15:52] VITALS: BP 111/76
[2019-03-25] MEDS: METOPROLOL SUCC 24HR ER 25 MG TAB.ER.24H. PO SCH (16:16)
[2019-03-25] MEDS: MIRTAZAPINE 7.5 MG TABLET. PO SCH (19:19)
[2019-03-25] MEDS: SIMVASTATIN 20 MG TABLET PO SCH (19:20)
--- NOTE | 2019-03-25 22:46 | PN ---
DATE: 03/25/2019 SUBJECTIVE: The patient was seen today, met with the staff, chart reviewed. Staff reports his behavior has improved today. Much calmer, not agitated. Denied of any suicidal thoughts. Still religiously preoccupied, but his affect has improved. OBJECTIVE: VITAL SIGNS: Temperature 97.7, blood pressure 106/72, pulse 66, respirations 20, O2 sat 98%. Slept about 6-1/2 hours last night. CURRENT MEDICATIONS: The patient apparently responded well to increase his Zyprexa to 20 mg. The patient apparently started having acute manic symptoms with delusions after the discontinuation of Depakote. The patient is sleeping fair. His appetite is fair. ASSESSMENT: 1. Bipolar disorder type 1, mixed, with psychotic features 2. Schizoaffective disorder, bipolar type, with psychotic features. 3. Mild cognitive impairment. 4. Generalized anxiety disorder. PLAN: To continue with the treatment. LENGTH OF STAY: 5 days. ERASTO DECKER MD DR: GREGORIO/lewis JOB#: [id number] / [id number]
[2019-03-26] MEDS: LEVOTHYROXINE 125 MCG TABLET PO SCH (05:51)
[2019-03-26 06:14] VITALS: BP 107/69
[2019-03-26] MEDS: POLYETHYLENE GLYCOL 3350 17 GM PACKET. PO SCH (07:24)
[2019-03-26] MEDS: CALCIUM CARB/VIT D3 500/200 TABLET PO SCH (07:24)
[2019-03-26] MEDS: DOCUSATE SODIUM 100 MG CAPSULE PO SCH (07:24)
[2019-03-26] MEDS: OLANZapine 10 MG TABLET PO SCH (07:25)
[2019-03-26] MEDS: levETIRAcetam 500 MG TABLET PO SCH ×2 (07:25→19:20)
[2019-03-26] MEDS: BENZTROPINE MESYLATE 1 MG TABLET PO SCH ×2 (07:26→19:20)
[2019-03-26] MEDS: BUMETANIDE 1 MG TABLET PO SCH (07:26)
[2019-03-26] MEDS: LACTOBACILLUS RHAMNOSUS GG 1 CAPSULE. PO SCH ×2 (07:26→19:20)
[2019-03-26] MEDS: MULTIVITAMIN with MINERAL TABLET. PO SCH (07:27)
[2019-03-26] MEDS: METOPROLOL SUCC 24HR ER 25 MG TAB.ER.24H. PO SCH (07:27)
[2019-03-26] MEDS: TAMSULOSIN 0.4 MG CAP.ER.24H. PO SCH (07:27)
[2019-03-26] MEDS: ASCORBIC ACID 500 MG TABLET PO SCH ×2 (07:28→16:36)
[2019-03-26] MEDS: busPIRone 10 MG TABLET. PO SCH ×2 (07:28→19:20)
[2019-03-26] MEDS: FERROUS SULFATE 325 MG TABLET. PO SCH ×2 (07:28→16:36)
[2019-03-26] MEDS: POTASSIUM CHLORIDE 20 MEQ TABLET.ER. PO SCH ×2 (07:28→19:20)
[2019-03-26] MEDS: ASPIRIN 81 MG TAB.CHEW PO SCH (07:28)
[2019-03-26] MEDS: traMADol 50 MG TABLET PO SCH ×2 (07:31→19:22)
[2019-03-26 15:45] VITALS: BP 107/74
[2019-03-26] MEDS: SIMVASTATIN 20 MG TABLET PO SCH (19:20)
[2019-03-26] MEDS: MIRTAZAPINE 7.5 MG TABLET. PO SCH (19:20)
--- NOTE | 2019-03-26 22:00 | PDOC ---
Exam Note: Venkat Note: Please also refer to the separate dictated note~for this date of service dictated separately.~Patient seen individually. Discussed the patient with Nursing staff reviewed the chart.~Reviewed interim history and current functioning. Reviewed vital signs,~Labs/ Radiology~and current medications noted below. Continue current treatment with the changes noted in the dictated addendum note Assessment: Vital Signs/I&O: Vital Signs Date Time Temp Pulse Resp B/P (MAP) Pulse Ox O2 Delivery O2 Flow Rate FiO2 03/26/19 20:22 93 03/26/19 15:45 97.3 79 16 107/74 (85) Room Air I & O 03/25/19 03/25/19 03/26/19 14:59 22:59 06:59 Intake Total 720 ml 360 ml 240 ml Balance 720 ml 360 ml 240 ml Current Medications: I have reviewed the current psychotropics carefully including drug interactions. Risk benefit ratio favors no change other than as noted in my dictated progress note. Diagnosis: Problems: (1) Mild cognitive impairment (2) Cellulitis (3) Urinary tract infection (4) Aggressive behavior of adult (5) Peripheral edema (6) Schizophrenia (7) Delusions (8) Bipolar affective disorder, currently manic, severe, with psychosis (9) Anxiety disorder (10) Acute exacerbation of chronic schizoaffective schizophrenia (11) Bipolar affective, mixed, sev w/ psych (12) Isolated seizures (13) Schizoaffective disorder, bipolar type (14) Impulse control disorder (15) Essential hypertension (16) Psychosis, atypical AISHA MONZON MD Mar 26, 2019 22:00
[2019-03-27] MEDS: LEVOTHYROXINE 125 MCG TABLET PO SCH (05:30)
[2019-03-27 06:14] VITALS: BP 115/71
[2019-03-27] MEDS: ASPIRIN 81 MG TAB.CHEW PO SCH (07:54)
[2019-03-27] MEDS: POLYETHYLENE GLYCOL 3350 17 GM PACKET. PO SCH (07:54)
[2019-03-27] MEDS: FERROUS SULFATE 325 MG TABLET. PO SCH ×2 (07:55→17:15)
[2019-03-27] MEDS: MULTIVITAMIN with MINERAL TABLET. PO SCH (07:55)
[2019-03-27] MEDS: DOCUSATE SODIUM 100 MG CAPSULE PO SCH (07:55)
[2019-03-27] MEDS: levETIRAcetam 500 MG TABLET PO SCH ×2 (07:55→20:33)
[2019-03-27] MEDS: TAMSULOSIN 0.4 MG CAP.ER.24H. PO SCH (07:55)
[2019-03-27] MEDS: OLANZapine 10 MG TABLET PO SCH (07:55)
[2019-03-27] MEDS: BENZTROPINE MESYLATE 1 MG TABLET PO SCH ×2 (07:56→20:33)
[2019-03-27] MEDS: POTASSIUM CHLORIDE 20 MEQ TABLET.ER. PO SCH ×2 (07:56→20:32)
[2019-03-27] MEDS: busPIRone 10 MG TABLET. PO SCH ×2 (07:57→20:32)
[2019-03-27] MEDS: CALCIUM CARB/VIT D3 500/200 TABLET PO SCH (07:57)
[2019-03-27] MEDS: LACTOBACILLUS RHAMNOSUS GG 1 CAPSULE. PO SCH ×2 (07:57→20:32)
[2019-03-27] MEDS: METOPROLOL SUCC 24HR ER 25 MG TAB.ER.24H. PO SCH (07:57)
[2019-03-27] MEDS: ASCORBIC ACID 500 MG TABLET PO SCH ×2 (07:57→17:15)
[2019-03-27] MEDS: traMADol 50 MG TABLET PO SCH ×2 (08:00→20:34)
[2019-03-27] MEDS: BUMETANIDE 1 MG TABLET PO SCH (08:00)
[2019-03-27 16:48] VITALS: BP 110/74
[2019-03-27] MEDS: SIMVASTATIN 20 MG TABLET PO SCH (20:32)
[2019-03-27] MEDS: MIRTAZAPINE 7.5 MG TABLET. PO SCH (20:33)
--- NOTE | 2019-03-27 22:41 | PDOC ---
Exam Note: Venkat Note: Please also refer to the separate dictated note~for this date of service dictated separately.~Patient seen individually. Discussed the patient with Nursing staff reviewed the chart.~Reviewed interim history and current functioning. Reviewed vital signs,~Labs/ Radiology~and current medications noted below. Continue current treatment with the changes noted in the dictated addendum note Assessment: Vital Signs/I&O: Vital Signs Date Time Temp Pulse Resp B/P (MAP) Pulse Ox O2 Delivery O2 Flow Rate FiO2 03/27/19 21:34 18 97 03/27/19 16:48 97.8 82 110/74 (86) 03/27/19 08:00 Room Air I & O 03/26/19 03/26/19 03/27/19 14:59 22:59 06:59 Intake Total 600 ml 360 ml 240 ml Balance 600 ml 360 ml 240 ml Current Medications: I have reviewed the current psychotropics carefully including drug interactions. Risk benefit ratio favors no change other than as noted in my dictated progress note. Diagnosis: Problems: (1) Mild cognitive impairment (2) Aggressive behavior of adult (3) Delusions (4) Schizophrenia (5) Bipolar affective disorder, currently manic, severe, with psychosis (6) Anxiety disorder (7) Acute exacerbation of chronic schizoaffective schizophrenia (8) Bipolar affective, mixed, sev w/ psych (9) Schizoaffective disorder, bipolar type (10) Psychosis, atypical AISHA MONZON MD Mar 27, 2019 22:41
[2019-03-28 06:05] VITALS: BP 107/69
[2019-03-28] MEDS: LEVOTHYROXINE 125 MCG TABLET PO SCH (06:09)
[2019-03-28] MEDS: DOCUSATE SODIUM 100 MG CAPSULE PO SCH (07:35)
[2019-03-28] MEDS: POLYETHYLENE GLYCOL 3350 17 GM PACKET. PO SCH (07:35)
[2019-03-28] MEDS: FERROUS SULFATE 325 MG TABLET. PO SCH ×2 (07:36→18:03)
[2019-03-28] MEDS: ASCORBIC ACID 500 MG TABLET PO SCH ×2 (07:36→18:03)
[2019-03-28] MEDS: METOPROLOL SUCC 24HR ER 25 MG TAB.ER.24H. PO SCH (07:36)
[2019-03-28] MEDS: CALCIUM CARB/VIT D3 500/200 TABLET PO SCH (07:36)
[2019-03-28] MEDS: OLANZapine 10 MG TABLET PO SCH (07:36)
[2019-03-28] MEDS: busPIRone 10 MG TABLET. PO SCH ×2 (07:36→19:59)
[2019-03-28] MEDS: ASPIRIN 81 MG TAB.CHEW PO SCH (07:36)
[2019-03-28] MEDS: MULTIVITAMIN with MINERAL TABLET. PO SCH (07:37)
[2019-03-28] MEDS: TAMSULOSIN 0.4 MG CAP.ER.24H. PO SCH (07:37)
[2019-03-28] MEDS: levETIRAcetam 500 MG TABLET PO SCH ×2 (07:37→19:59)
[2019-03-28] MEDS: POTASSIUM CHLORIDE 20 MEQ TABLET.ER. PO SCH ×2 (07:37→19:59)
[2019-03-28] MEDS: LACTOBACILLUS RHAMNOSUS GG 1 CAPSULE. PO SCH ×2 (07:37→19:59)
[2019-03-28] MEDS: BENZTROPINE MESYLATE 1 MG TABLET PO SCH ×2 (07:37→19:59)
[2019-03-28] MEDS: traMADol 50 MG TABLET PO SCH ×2 (07:43→20:01)
[2019-03-28] MEDS: BUMETANIDE 1 MG TABLET PO SCH (07:43)
[2019-03-28 16:34] VITALS: BP 117/78
--- NOTE | 2019-03-28 16:50 | PN ---
DATE: 03/26/2019 PSYCHIATRIC PROGRESS NOTE This late entry 03/26/2019 covers elements not covered in my initial note. SUBJECTIVE: I met with the patient in the evening and reviewed information from Dr. Grier who had covered for me for the past 1 week or so. Overall, the patient is more cooperative, reading the Bible, and he was doing this as I met with him, somewhat hyper-pentecostal, but this is typical of him. He is less aggressive, less paranoid. No CV, , pulmonary, eye system symptoms on review. Gait unsteady with walker. MENTAL STATUS EXAM: Oriented reasonably. Speech had some latency, coherent. Abstraction fair, computation impaired, language function intact, attention span short. Mood and affect appear somewhat improved. LABORATORY DATA: Reviewed. IMPRESSION: Unchanged from initial note. PLAN: No change from initial note. MAN Emiliano MONZON MD DR: DEYSI/lewis JOB#: [id number] / [id number]
[2019-03-28] MEDS: MIRTAZAPINE 7.5 MG TABLET. PO SCH (19:59)
[2019-03-28] MEDS: SIMVASTATIN 20 MG TABLET PO SCH (19:59)
--- NOTE | 2019-03-28 22:36 | PDOC ---
Exam Note: Venkat Note: Please also refer to the separate dictated note~for this date of service dictated separately.~Patient seen individually. Discussed the patient with Nursing staff reviewed the chart.~Reviewed interim history and current functioning. Reviewed vital signs,~Labs/ Radiology~and current medications noted below. Continue current treatment with the changes noted in the dictated addendum note Assessment: Vital Signs/I&O: Vital Signs Date Time Temp Pulse Resp B/P (MAP) Pulse Ox O2 Delivery O2 Flow Rate FiO2 03/28/19 21:01 18 95 03/28/19 16:34 97.7 70 117/78 (91) 03/27/19 08:00 Room Air I & O 03/27/19 03/27/19 03/28/19 14:59 22:59 06:59 Intake Total 720 ml 480 ml Balance 720 ml 480 ml Current Medications: I have reviewed the current psychotropics carefully including drug interactions. Risk benefit ratio favors no change other than as noted in my dictated progress note. Diagnosis: Problems: (1) Mild cognitive impairment (2) Schizophrenia (3) Bipolar affective disorder, currently manic, severe, with psychosis (4) Anxiety disorder (5) Bipolar affective, mixed, sev w/ psych (6) Schizoaffective disorder, bipolar type (7) Impulse control disorder (8) Psychosis, atypical AISHA MONZON MD Mar 28, 2019 22:36
--- NOTE | 2019-03-29 02:25 | PN ---
DATE: 03/27/2019 PSYCHIATRIC PROGRESS NOTE This is a late entry 03/27/2019 covers elements not covered in my initial note. SUBJECTIVE: I met with the patient in the evening at some length. The patient slept 7-1/4 hours previous night. He had a good day, has not been agitated, and aggressive. He is less preoccupied with the Bible verus as I met with him. REVIEW OF SYSTEMS: Ambulation impaired. No CV, , pulmonary, eye, ENT system symptoms on review. MENTAL STATUS EXAM: Oriented reasonably. Speech has some latency, coherent. Abstraction fair, computation impaired, language function intact, and attention span short. Mood and affect less labile. LABORATORY DATA: Reviewed. IMPRESSION: Unchanged from initial note. PLAN: No change from initial note. MAN Emiliano MONZON MD DR: DEYSI/lewis JOB#: [id number] / [id number]
[2019-03-29] MEDS: LEVOTHYROXINE 125 MCG TABLET PO SCH (05:00)
[2019-03-29 06:09] VITALS: BP 101/70
[2019-03-29] MEDS: levETIRAcetam 500 MG TABLET PO SCH ×2 (07:25→19:36)
[2019-03-29] MEDS: FERROUS SULFATE 325 MG TABLET. PO SCH ×2 (07:25→16:13)
[2019-03-29] MEDS: BUMETANIDE 1 MG TABLET PO SCH (07:25)
[2019-03-29] MEDS: LACTOBACILLUS RHAMNOSUS GG 1 CAPSULE. PO SCH ×2 (07:26→19:36)
[2019-03-29] MEDS: TAMSULOSIN 0.4 MG CAP.ER.24H. PO SCH (07:26)
[2019-03-29] MEDS: CALCIUM CARB/VIT D3 500/200 TABLET PO SCH (07:26)
[2019-03-29] MEDS: OLANZapine 10 MG TABLET PO SCH (07:26)
[2019-03-29] MEDS: ASCORBIC ACID 500 MG TABLET PO SCH ×2 (07:27→16:13)
[2019-03-29] MEDS: ASPIRIN 81 MG TAB.CHEW PO SCH (07:27)
[2019-03-29] MEDS: METOPROLOL SUCC 24HR ER 25 MG TAB.ER.24H. PO SCH (07:27)
[2019-03-29] MEDS: POTASSIUM CHLORIDE 20 MEQ TABLET.ER. PO SCH ×2 (07:27→19:37)
[2019-03-29] MEDS: busPIRone 10 MG TABLET. PO SCH ×2 (07:27→19:36)
[2019-03-29] MEDS: POLYETHYLENE GLYCOL 3350 17 GM PACKET. PO SCH (07:28)
[2019-03-29] MEDS: MULTIVITAMIN with MINERAL TABLET. PO SCH (07:28)
[2019-03-29] MEDS: DOCUSATE SODIUM 100 MG CAPSULE PO SCH (07:28)
[2019-03-29] MEDS: BENZTROPINE MESYLATE 1 MG TABLET PO SCH ×2 (07:28→19:36)
[2019-03-29] MEDS: traMADol 50 MG TABLET PO SCH ×2 (07:30→19:38)
[2019-03-29 16:11] VITALS: BP 122/80
[2019-03-29] MEDS: MIRTAZAPINE 7.5 MG TABLET. PO SCH (19:36)
[2019-03-29] MEDS: SIMVASTATIN 20 MG TABLET PO SCH (19:36)
--- NOTE | 2019-03-29 22:08 | PN ---
DATE: 03/28/2019 PSYCHIATRIC PROGRESS NOTE This is a late entry 03/28/2019, covers the elements not covered in my initial note. SUBJECTIVE: I met with the patient on the evening of 03/28/2019. The patient slept 5-1/2 hours previous night. He is doing better, but gets agitated with one of the other demented patients on the unit who was quite disruptive. REVIEW OF SYSTEMS: Ambulation impaired. No CV, , pulmonary, eye, ENT system symptoms on review. MENTAL STATUS EXAM: Oriented to himself and situation. Speech has some latency, coherent. Abstraction fair, computation impaired, language function intact, attention span short. Mood and affect less grandiose, less labile. He was reading the Bible prior to my visit with him and it was quite unevenly placed in his lap, not sure if he is able to read it, but certainly made it appear, he was trying to do so. I addressed this with him. LABORATORY DATA: Reviewed. IMPRESSION: Unchanged from initial note. PLAN: No change from initial note. MAN Emiliano MONZON MD DR: DEYSI/lewis JOB#: [id number] / [id number]
--- NOTE | 2019-03-29 22:37 | PDOC ---
Exam Note: Venkat Note: Please also refer to the separate dictated note~for this date of service dictated separately.~Patient seen individually. Discussed the patient with Nursing staff reviewed the chart.~Reviewed interim history and current functioning. Reviewed vital signs,~Labs/ Radiology~and current medications noted below. Continue current treatment with the changes noted in the dictated addendum note Assessment: Vital Signs/I&O: Vital Signs Date Time Temp Pulse Resp B/P (MAP) Pulse Ox O2 Delivery O2 Flow Rate FiO2 03/29/19 20:40 96 03/29/19 19:38 18 Room Air 03/29/19 16:11 97.2 75 122/80 (94) I & O 03/28/19 03/28/19 03/29/19 14:59 22:59 06:59 Intake Total 960 ml 240 ml 120 ml Balance 960 ml 240 ml 120 ml Current Medications: I have reviewed the current psychotropics carefully including drug interactions. Risk benefit ratio favors no change other than as noted in my dictated progress note. Diagnosis: Problems: (1) Anxiety disorder (2) Delusions (3) Schizophrenia (4) Acute exacerbation of chronic schizoaffective schizophrenia (5) Bipolar affective, mixed, sev w/ psych (6) Schizoaffective disorder, bipolar type (7) Impulse control disorder (8) Psychosis, atypical (9) Mild cognitive impairment (10) Bipolar affective disorder, currently manic, severe, with psychosis AISHA MONZON MD Mar 29, 2019 22:37
[2019-03-30] MEDS: LEVOTHYROXINE 125 MCG TABLET PO SCH (05:44)
[2019-03-30 06:10] VITALS: BP 106/67
[2019-03-30] MEDS: ASPIRIN 81 MG TAB.CHEW PO SCH (08:08)
[2019-03-30] MEDS: FERROUS SULFATE 325 MG TABLET. PO SCH (08:09)
[2019-03-30] MEDS: ASCORBIC ACID 500 MG TABLET PO SCH (08:09)
[2019-03-30] MEDS: BENZTROPINE MESYLATE 1 MG TABLET PO SCH (08:09)
[2019-03-30] MEDS: busPIRone 10 MG TABLET. PO SCH (08:09)
[2019-03-30] MEDS: BUMETANIDE 1 MG TABLET PO SCH (08:09)
[2019-03-30] MEDS: DOCUSATE SODIUM 100 MG CAPSULE PO SCH (08:10)
[2019-03-30] MEDS: TAMSULOSIN 0.4 MG CAP.ER.24H. PO SCH (08:10)
[2019-03-30] MEDS: levETIRAcetam 500 MG TABLET PO SCH (08:10)
[2019-03-30] MEDS: LACTOBACILLUS RHAMNOSUS GG 1 CAPSULE. PO SCH (08:10)
[2019-03-30] MEDS: MULTIVITAMIN with MINERAL TABLET. PO SCH (08:11)
[2019-03-30] MEDS: POTASSIUM CHLORIDE 20 MEQ TABLET.ER. PO SCH (08:11)
[2019-03-30] MEDS: CALCIUM CARB/VIT D3 500/200 TABLET PO SCH (08:11)
[2019-03-30] MEDS: POLYETHYLENE GLYCOL 3350 17 GM PACKET. PO SCH (08:11)
[2019-03-30 08:12] VITALS: BP 106/67
[2019-03-30] MEDS: OLANZapine 10 MG TABLET PO SCH (08:12)
[2019-03-30] MEDS: METOPROLOL SUCC 24HR ER 25 MG TAB.ER.24H. PO SCH (08:12)
[2019-03-30] MEDS: traMADol 50 MG TABLET PO SCH (08:29)
[2019-03-30] MEDS ORDERED: ASCO500T3 PO (11:47)
[2019-03-30] MEDS ORDERED: FERR325T14 PO (11:49)
[2019-03-30] MEDS ORDERED: LACT1CAP21 PO (11:50)
[2019-03-30] MEDS ORDERED: LORA0.5T PO (11:51)
[2019-03-30] MEDS ORDERED: METH29OI TP (11:52)
[2019-03-30] MEDS ORDERED: MAG355OR11 PO (11:53)
[2019-03-30] MEDS ORDERED: MIRT15TA3 PO (11:55)
[2019-03-30] MEDS ORDERED: BUSP10TA PO (11:59)
[2019-03-30] MEDS ORDERED: TRAZ-120 PO (12:00)
[2019-03-30] MEDS ORDERED: SODI30SP NS (12:03)
[2019-03-30] MEDS ORDERED: DEXT15DR5 EACHEYE (12:05)
--- NOTE | 2019-03-30 18:44 | PDOC ---
Exam Note: Venkat Note: Please also refer to the separate dictated note~for this date of service dictated separately.~Patient seen individually. Discussed the patient with Nursing staff reviewed the chart.~Reviewed interim history and current functioning. Reviewed vital signs,~Labs/ Radiology~and current medications noted below. Continue current treatment with the changes noted in the dictated addendum note Assessment: Vital Signs/I&O: Vital Signs Date Time Temp Pulse Resp B/P (MAP) Pulse Ox O2 Delivery O2 Flow Rate FiO2 03/30/19 09:29 18 03/30/19 08:12 98 106/67 03/30/19 06:10 97.3 98 Room Air I & O 03/29/19 03/29/19 03/30/19 15:00 23:00 07:00 Intake Total 840 ml 240 ml Balance 840 ml 240 ml Current Medications: I have reviewed the current psychotropics carefully including drug interactions. Risk benefit ratio favors no change other than as noted in my dictated progress note. Diagnosis: Problems: (1) Mild cognitive impairment (2) Impulse control disorder (3) Schizoaffective disorder, bipolar type (4) Bipolar affective, mixed, sev w/ psych (5) Acute exacerbation of chronic schizoaffective schizophrenia (6) Anxiety disorder (7) Bipolar affective disorder, currently manic, severe, with psychosis AISHA MONZON MD Mar 30, 2019 18:43
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
--- NOTE | 2019-03-31 00:19 | PN ---
DATE: 03/29/2019 PSYCHIATRIC PROGRESS NOTE This late entry 03/29/2019, covers elements not covered in my initial note. SUBJECTIVE: I met with the patient in the evening at some length. The patient slept 5-1/2 hours previous night. He continues to read the Bible, but has been appropriate, not aggressive. REVIEW OF SYSTEMS: Ambulation impaired, in wheelchair. No CV, , pulmonary, eye, ENT system symptoms on review. He is somewhat distressed with another demented patient on the unit, who gets aggressive and we processed this at length. MENTAL STATUS EXAM: Oriented to himself and situation. Speech is coherent, has some latency. Abstraction fair, computation impaired, language function intact, attention span short. Mood and affect is improved. LABORATORY DATA: Reviewed. IMPRESSION: Unchanged from initial note. PLAN: No change from initial note. MAN Emiliano MONZON MD DR: DEYSI/lewis JOB#: [id number] / [id number]
== END 2019-03-30 13:49 | DRG 885 ==
LOC: ER 12:12 → GEROPSY 14:50
PROVIDERS: ADMIT Psychiatry & Neurology Psychiatry; ATTEND Psychiatry & Neurology Psychiatry
DX: F31.64 Bipolar disorder, current episode mixed, severe, with psychotic features (principal); F03.91 Unspecified dementia, unspecified severity, with behavioral disturbance; N39.0 Urinary tract infection, site not specified; E03.9 Hypothyroidism, unspecified; E78.5 Hyperlipidemia, unspecified; F41.1 Generalized anxiety disorder; F42.9 Obsessive-compulsive disorder, unspecified; F63.9 Impulse disorder, unspecified; G24.9 Dystonia, unspecified; G40.909 Epilepsy, unspecified, not intractable, without status epilepticus; G47.00 Insomnia, unspecified; G89.4 Chronic pain syndrome; I10 Essential (primary) hypertension; K21.9 Gastro-esophageal reflux disease without esophagitis; K31.819 Angiodysplasia of stomach and duodenum without bleeding; M19.90 Unspecified osteoarthritis, unspecified site; M81.0 Age-related osteoporosis without current pathological fracture; R13.10 Dysphagia, unspecified; Z66 Do not resuscitate; Z79.899 Other long term (current) drug therapy; Z87.440 Personal history of urinary (tract) infections
CPT/HCPCS: 36415; 70450; 73521; 80053; 80061; 80164; 80329; 81001; 82306; 82553; 83036; 83540; 83550; 83735; 84436; 84443; 84480; 84484; 85025; 86592; 87086; 87186; 93005; 93970; 96365; G0480; J0696; 82003; 99285-25

== ENCOUNTER 2020-07-06 12:28 | Inpatient (IN) | payer MEDICARE, OTHER ==
[~2020-07-06] VITALS: Ht 182.9 cm; Wt 99.4 kg
[~2020-07-06 12:28] MED LIST changes: +ACET325T9 PO; +AMOX1TAB61 PO; +ASCO500T3 PO; +ASPI-630 PO; +BENZ1TAB5 PO; +BISA5TAB4 PO; +BUME2TAB3 PO; +BUSP10TA PO; +CALC-56 PO; +DEXT15DR5 EACHEYE; +DIVA500T17 PO; +FERR325T14 PO; +LACT1CAP21 PO; +LEVO125T5 PO; +LORA0.5T PO; +MAG355OR11 PO; +MAGN24003 PO; +METH28OI2 TP; +METO-239 PO; +MIRT15TA3 PO; +OLAN10TA3 PO; +POTA20TA84 PO; +SENN-182 PO; +SODI30SP NS; +TAMS0.4C97 PO; +TRAM50TA PO; +TRAZ-120 PO
[2020-07-06] MEDS ORDERED: DEXTROSE 50% 25 GM / 50ML DISP.SYRIN. IV ONE (12:45)
[2020-07-06 12:53] LABS: BGAS PH 7.49 (7.35-7.46)
[2020-07-06] MEDS ORDERED: IV NORMAL SALINE 50ML 50 ML ONE (12:57)
[2020-07-06] MEDS ORDERED: PIPERACILLIN/TAZOBACTAM 3.375 GM VIAL IV ONE (12:57)
--- NOTE | 2020-07-06 12:58 | RAD ---
CHEST AP ONLY History: Reason: SOB / Spl. Instructions: / History: Comparison: None. Findings: Low lung volumes. Bilateral interstitial thickening. Patchy mid and bibasilar opacities. No pleural effusion. No pneumothorax. Left-sided PICC with tip projecting over the upper SVC. Mild gaseous distention of the stomach. Impression: 1. Bilateral interstitial thickening with central and bibasilar opacities, may represent pulmonary edema or infection. 2. Low lung volumes. 3. Mild gaseous distention of the stomach. Electronically signed by: Vinicius Andres DO (07/06/2020 12:55 PM) [id number]
--- NOTE | 2020-07-06 12:58 | EKG ---
[address] [address] Test Date: 2020-07-06 Test Time: 12:32:03 Pat Name: JANINE SANTIAGO Department: Room: Gender: M Chief Creative Officer: ARABELLA : 1950 Requested By: MCKENZIE BENSON Order Number: [id number] Reading MD: Measurements Intervals [place] Rate: 111 P: 28 TX: 148 QRS: 20 QRSD: 74 T: 43 QT: 320 QTc: 438 Interpretive Statements SINUS TACHYCARDIA R-S TRANSITION ZONE IN V LEADS DISPLACED TO THE RIGHT OTHERWISE NORMAL ECG RI6.02 No previous ECG available for comparison
[2020-07-06] MEDS ORDERED: IV NORMAL SALINE 1,000ML 1,000 ML IV SCH (13:00)
[2020-07-06] MEDS ORDERED: PIPERACILLIN/TAZOBACTAM 3.375 GM in IV NORMAL SALINE 50ML 50 ML IV ONE (13:00)
[2020-07-06] MEDS ORDERED: KETOROLAC 30 MG/ML VIAL. IVP ONE (13:00)
[2020-07-06] MEDS ORDERED: ACETAMINOPHEN 650 MG SUPP.RECT. PR ONE (13:00)
[2020-07-06 13:03] LABS: BASO # 0.1 x10^3/uL (0.0-0.2); BASO % 0 % (0-3); EOS % 0 % (0-3); HEMATOCRIT 29.7 % (39.0-53.0); HEMOGLOBIN 9.7 g/dL (13.0-17.5); LYMPH # 0.3 x10^3/uL (1.0-4.8); LYMPH % 1 % (24-48); MEAN CORPUSCULAR HEMOGLOBIN 32 pg (25-35); MEAN CORPUSCULAR HGB CONC 33 g/dL (31-37); MEAN CORPUSCULAR VOLUME 99 fL (79-100); MONO # 0.6 x10^3/uL (0.0-1.1); MONO % 2 % (0-9); NEUT # 27.3 x10^3uL (1.8-7.7); NEUT % 97 % (31-73); PLATELET COUNT 168 x10^3/uL (140-400); RED CELL DISTRIBUTION WIDTH 14.9 % (11.5-14.5); WHITE BLOOD COUNT 28.2 x10^3/uL (4.0-11.0)
[2020-07-06 13:16] LABS: CALCIUM 9.4 mg/dL (8.5-10.1); CREATININE 1.9 mg/dL (0.7-1.3); GFR 35.1
[2020-07-06 13:31] LABS: ALBUMIN 1.7 g/dL (3.4-5.0); ALBUMIN/GLOBULIN RATIO 0.4 (1.0-1.7); TOTAL BILIRUBIN 0.6 mg/dL (0.2-1.0); TOTAL PROTEIN 6.4 g/dL (6.4-8.2)
--- NOTE | 2020-07-06 13:42 | PHYS DOC ---
Past History Past Medical History: Bipolar, Depression, GERD, Hypertension, Hyperthyroid, Hypothyroid, Schizophrenia Past Surgical History: No Surgical History Smoking: Non-smoker Alcohol Use: None Drug Use: None General Adult EDM: Chief Complaint: DYSPNEA/RESPIRATOY DISTRESS HPI: HPI: 69-year-old male presents via EMS from his alf with shortness of breath. The entire history is gleaned from EMS reports as the patient is not able to answer questions. The patient was found by the alf small to be breathing rapidly and shallow. They checked his oxygen saturation and it was in the 70s. They called EMS. When EMS arrived, the patient was breathing rapidly but then slowed down the leg for respirations per minute. They started bagging the patient and he spontaneously increased his respirations back to around 40. They put him on oxygen and his O2 saturation improved. The patient was not reported to have a fever. No known COVID-19 exposures. Review of Systems: Review of Systems: Unable to perform due to patient's altered mental status Heart Score: Risk Factors: Risk Factors: DM, Current or recent (<one month) smoker, HTN, HLP, family history of CAD, obesity. Risk Scores: Score 0 - 3: 2.5% MACE over next 6 weeks - Discharge Home Score 4 - 6: 20.3% MACE over next 6 weeks - Admit for Clinical Observation Score 7 - 10: 72.7% MACE over next 6 weeks - Early Invasive Strategies Current Medications: Current Meds: Current Medications Medications (Trade) Dose Ordered Sig/Justin Start Time Stop Time Status Last Admin Dose Admin Acetaminophen (Tylenol Supp) 650 mg 1X ONCE 07/06/20 13:00 07/06/20 13:01 DC 07/06/20 13:02 650 MG Dextrose (Dextrose 50%-Water Syringe) 25 gm 1X ONCE 07/06/20 12:45 07/06/20 12:46 DC 07/06/20 13:02 25 GM Ketorolac Tromethamine (Toradol 30mg Vial) 30 mg 1X ONCE 07/06/20 13:00 07/06/20 13:01 DC 07/06/20 13:02 30 MG Piperacillin Sod/ Tazobactam Sod (Zosyn) 3.375 gm STK-MED ONCE 07/06/20 12:57 07/06/20 12:57 DC Piperacillin Sod/ Tazobactam Sod 3.375 gm/Sodium Chloride 50 ml @ 100 mls/hr 1X ONCE 07/06/20 13:00 07/06/20 13:29 DC 07/06/20 13:01 100 MLS/HR Sodium Chloride 50 ml @ As Directed STK-MED ONCE 07/06/20 12:57 07/06/20 12:57 DC Allergies: Allergies: Allergies Coded Allergies Type Severity Reaction Last Updated Verified Sulfa (Sulfonamide Antibiotics) Allergy Intermediate 03/03/19 Yes I S O L A T I O N *CONTACT* Allergy Unknown 03/07/19 Yes Physical Exam: PE: Constitutional: Well developed, well nourished, moderate acute distress, non- toxic appearance. [] HENT: Normocephalic, atraumatic, bilateral external ears normal, oropharynx moist, no oral exudates, nose normal. [] Eyes: PERRLA, EOMI, conjunctiva normal, no discharge. [] Neck: Normal range of motion, no tenderness, supple, no stridor. [] Cardiovascular: Heart rate 111, regular rhythm, no murmur [] Lungs & Thorax: Bilateral breath sounds shallow but clear to auscultation [] Abdomen: Bowel sounds normal, soft, no masses, no pulsatile masses. [] Skin: Warm core, cool extremities,, dry, no erythema, no rash. [] Back: No tenderness, no CVA tenderness. [] Extremities: No tenderness, no cyanosis, no clubbing, no edema. [] Neurologic: Retracts to pain, spontaneously opening his eyes and making noise. [] Psychologic: Unable to perform [] Current Patient Data: Labs: Laboratory Tests Test 07/06/20 12:33 07/06/20 12:35 07/06/20 12:40 Blood pH 7.49 (7.35-7.46) H Blood Gas PCO2 28 mmHg (35-46) L Blood Gas PO2 158 mmHg (71-100) H Blood Gas HCO3 21 mmol/L (21-28) Arterial Bld O2 Saturation (Calc) 99 % (92-99) FiO2 100 % White Blood Count 28.2 x10^3/uL (4.0-11.0) H Red Blood Count 3.00 x10^6/uL (4.30-5.70) L Hemoglobin 9.7 g/dL (13.0-17.5) L Hematocrit 29.7 % (39.0-53.0) L Mean Corpuscular Volume 99 fL (79-100) Mean Corpuscular Hemoglobin 32 pg (25-35) Mean Corpuscular Hemoglobin Concent 33 g/dL (31-37) Red Cell Distribution Width 14.9 % (11.5-14.5) H Platelet Count 168 x10^3/uL (140-400) Neutrophils (%) (Auto) 97 % (31-73) H Lymphocytes (%) (Auto) 1 % (24-48) L Monocytes (%) (Auto) 2 % (0-9) Eosinophils (%) (Auto) 0 % (0-3) Basophils (%) (Auto) 0 % (0-3) Neutrophils # (Auto) 27.3 x10^3uL (1.8-7.7) H Lymphocytes # (Auto) 0.3 x10^3/uL (1.0-4.8) L Monocytes # (Auto) 0.6 x10^3/uL (0.0-1.1) Eosinophils # (Auto) 0.0 x10^3/uL (0.0-0.7) Basophils # (Auto) 0.1 x10^3/uL (0.0-0.2) Platelet Estimate Pending Sodium Level 141 mmol/L (136-145) Potassium Level 4.0 mmol/L (3.5-5.1) Chloride Level 108 mmol/L (98-107) H Carbon Dioxide Level 23 mmol/L (21-32) Anion Gap 10 (6-14) Blood Urea Nitrogen 30 mg/dL (8-26) H Creatinine 1.9 mg/dL (0.7-1.3) H Estimated GFR (Cockcroft-Gault) 35.1 BUN/Creatinine Ratio 16 (6-20) Glucose Level 68 mg/dL (70-99) L Lactic Acid Level 3.3 mmol/L (0.4-2.0) H Calcium Level 9.4 mg/dL (8.5-10.1) Total Bilirubin 0.6 mg/dL (0.2-1.0) Aspartate Amino Transferase (AST) 35 U/L (15-37) Alanine Aminotransferase (ALT) 31 U/L (16-63) Alkaline Phosphatase 82 U/L (46-116) Ammonia 17 mcmol/L (11-34) Troponin I Quantitative < 0.017 ng/mL (0-0.055) Total Protein 6.4 g/dL (6.4-8.2) Albumin 1.7 g/dL (3.4-5.0) L Albumin/Globulin Ratio 0.4 (1.0-1.7) L Glucose (Fingerstick) 62 mg/dL (70-99) L Vital Signs: Vital Signs Date Time Temp Pulse Resp B/P (MAP) Pulse Ox O2 Delivery O2 Flow Rate FiO2 07/06/20 12:35 103.8 111 38 115/55 (75) 90 NonRebreather Mask 12.0 EKG: EKG: Sinus tachycardia, rate 111, normal axis, no ST elevations or depressions. [] Radiology/Procedures: Radiology/Procedures: [] Impressions: CHEST AP ONLY History: Reason: SOB / Spl. Instructions: / History: Comparison: None. Findings: Low lung volumes. Bilateral interstitial thickening. Patchy mid and bibasilar opacities. No pleural effusion. No pneumothorax. Left-sided PICC with tip projecting over the upper SVC. Mild gaseous distention of the stomach. Impression: 1. Bilateral interstitial thickening with central and bibasilar opacities, may represent pulmonary edema or infection. 2. Low lung volumes. 3. Mild gaseous distention of the stomach. Electronically signed by: Vinicius Andres DO (07/06/2020 12:55 PM) [id number] DICTATED AND SIGNED BY: VINICIUS ANDRES DO DATE: 07/06/20 1255 CC: MCKENZIE BENSON DO; ARABELLA ASTUDILLO MD ~ Course & Med Decision Making: Course & Med Decision Making Pertinent Labs and Imaging studies reviewed. (See chart for details) We placed a Cameron catheter in the patient and he had an immediate 3 L of output that was serosanguineous to milky at the end. The patient then began to make more noise and said a few intelligible words. He was still unable to answer questions. His blood pressure decreased, but started to come back up. I have ordered 30 mL/kg of saline as the patient appears septic. He had a fever of 103. I have given 3 mg of Toradol IV as well as 650 mg of Tylenol suppository. The patient's chest x-ray shows possible pulmonary edema. See official read for more details. Patient has a significant elevated white count. See labs for more details of the lab results. The patient is uroseptic. He has gotten 3 L of fluid. His blood pressure has improved. He has been able to carry on a conversation with the nurses. I spoke with Dr. Jensen about the patient and he has agreed to admit the patient to telemetry at this facility. The patient is a DNR. 65 minutes of critical care time was spent on this patient exclusive of other billable procedures. [] Dragon Disclaimer: Dragon Disclaimer: This electronic medical record was generated, in whole or in part, using a voice recognition dictation system. Departure Departure: Impression: Primary Impression: Sepsis Qualified Codes: A41.9 - Sepsis, unspecified organism; R65.21 - Severe sepsis with septic shock Disposition: ADMITTED INPT THIS HOSP Admitting Physician: João Jensen Condition: GUARDED Referrals: ARABELLA ASTUDILLO MD (PCP) MCKENZIE BENSON DO Jul 06, 2020 13:42
[2020-07-06 13:51] LABS: CLARITY,URINE HAZY; COLOR,URINE PINK
[2020-07-06 13:52] LABS: BACTERIA,URINE MANY /HPF (0-FEW); BILIRUBIN,URINE NEG (NEG); GLUCOSE,URINE NEG (NEG); NITRITE,URINE NEG (NEG); RBC,URINE >40 /HPF (0-2); SQUAMOUS EPITHELIAL CELL,UR OCC /LPF; UROBILINOGEN,URINE 0.2 mg/dL (0.2 mg/dL); WBC,URINE >40 /HPF (0-4)
[2020-07-06 14:34] LABS: % BANDS 23 % (0-9); % LYMPHS 3 % (24-48); % METAS 2 % (0-0); % MONOS 4 % (0-10); % MYELOS 1 % (0-0); % SEGS 67 % (35-66)
[2020-07-06 14:35] LABS: PLT ESTIMATE ADEQUATE (ADEQUATE)
[2020-07-06 17:00] VITALS: BP 77/51
[2020-07-06] MEDS ORDERED: IV NORMAL SALINE 1,000ML 1,000 ML IV ONE (17:00)
[2020-07-06] MEDS: IV NORMAL SALINE 1,000ML 1,000 ML IV SCH (17:44)
[2020-07-06] MEDS ORDERED: ACETAMINOPHEN 325 MG TABLET PO PRN (17:45)
[2020-07-06] MEDS ORDERED: ONDANSETRON PF 4 MG/2 ML VIAL. IVP PRN (17:45)
--- NOTE | 2020-07-06 18:41 | NUR ---
NSG NOTE; ADMISSION ADMMIT TO ROOM 125 AT 1810 FROM ED VIA CART ACCOMP BY EMS PERSONNEL PT WAS IN RESP DISTRESS AT [facility] HR [facility] AND WAS TRANSPORTED TO [facility] ED HE IS BRIEFLY RESPONSIVE TO PAIN BUT QUICKLY BECOMES NONRESPONSIVE AGAIN.
[2020-07-06 19:00] VITALS: BP 77/51
[2020-07-06] MEDS: HYDROCORTISONE SOD SUCC/PF 100 MG/2 ML VIAL. IVP SCH (22:24)
[2020-07-06 22:49] VITALS: BP 91/62
[2020-07-07] VITALS (7 sets, daily range): BP systolic 83–108; BP diastolic 55–71
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
[2020-07-07] MEDS: IV NORMAL SALINE 1,000ML 1,000 ML IV SCH ×2 (01:44→10:00)
[2020-07-07] MEDS ORDERED: DIVA-53 PO (02:19)
[2020-07-07] MEDS ORDERED: BUME2TAB3 PO (02:19)
[2020-07-07] MEDS: HYDROCORTISONE SOD SUCC/PF 100 MG/2 ML VIAL. IVP SCH ×3 (06:31→22:32)
[2020-07-07] MEDS ORDERED: SENNOSIDES 8.6 MG TABLET PO PRN (14:30)
[2020-07-07] MEDS ORDERED: SODIUM CHLORIDE 0.65% NASAL SPRAY 45ML BOTTLE. NS PRN (14:30)
[2020-07-07] MEDS ORDERED: BISACODYL TAB 5 MG TABLET.DR. PO PRN (14:30)
[2020-07-07] MEDS ORDERED: MAG HYDROX/AL HYDROX/SIMETH 30 ML ORAL.SUSP PO PRN (15:00)
--- NOTE | 2020-07-07 15:07 | HP ---
ADMIT DATE: 07/06/2020 HISTORY OF PRESENT ILLNESS: The patient is a 69-year-old male patient, a resident at [facility], who was brought to the Emergency Room with shortness of breath. Apparently, the entire history was gleaned from the EMS report as the patient is not able to answer questions. He was found by snf staff to be breathing rapidly and shallow. They checked his oxygen saturation, it was in the 70s. He called EMS. On arrival of the EMS, he was breathing rapidly, but then slowed down. They started bagging the patient and he spontaneously increases with respiration back to around 40s with him on oxygen, and his oxygen saturation has improved. The patient was not reported to have fever, has no known COVID-19. On arrival, he was tachypneic and febrile. He has received multiple liters of fluid and was admitted for further evaluation and treatment. We did send blood and urine for culture and sensitivity. Apparently, he was catheterized in the Emergency Room and a large amount of urine was drained. He was continued on IV fluid, IV antibiotic, and was admitted for further evaluation and treatment. When I saw him, he was completely unresponsive. PAST MEDICAL HISTORY: Significant for hypothyroidism, major depressive disorder. He has vitamin D deficiency, gastroesophageal reflux disease without esophagitis, delusional disorder, hypertension, generalized anxiety, constipation, generalized osteoarthritis, angiodysplasia of the stomach and duodenum with bleeding, anemia that is unspecified, age-related osteoporosis without current pathological fractures, drug-induced movement disorder, has obsessive-compulsive disorder, neuromuscular dysfunction of the bladder, hyperlipidemia, abnormal gait and mobility, mild cognitive impairment, unsteady on his feet, schizoaffective disorder, recurrent falls and difficulty walking, has oropharyngeal dysphagia, attention and concentration deficit, aphasia, dysarthria and anarthria, history of falling, cervicalgia, and urinary tract infection. PAST SURGICAL HISTORY: Unremarkable. ALLERGIES: He is allergic to SULFA DRUGS. FAMILY HISTORY: Noncontributory. SOCIAL HISTORY: He is a resident at [facility]. He has been residing for the past several years. He is single, never , has no children. He does not smok and drinks alcohol very occasionally. MEDICATIONS: He is currently on following medications: He is on tamsulosin 0.4 mg at bedtime, ferrous sulfate 325 mg twice a day, simvastatin 20 mg at bedtime, metoprolol succinate 25 mg once a day, aspirin 81 mg once a day, acetaminophen 650 mg every 6 hours, divalproex sodium 1000 mg twice a day, levetiracetam 500 mg twice a day, olanzapine 10 mg once a day, benztropine mesylate 1 mg twice a day, calcium carbonate with vitamin D3 two and a half tablet once a day, potassium chloride 20 mEq twice a day, bumetanide 2 mg twice a day, sodium chloride for saline nasal spray one spray to each nostril 2 times a day, Maalox 15 mL after meals, bisacodyl 5 mg daily, docusate sodium 100 mg daily, magnesium hydroxide for milk of magnesia 30 mL p.o. daily p.r.n. for constipation, polyethylene glycol 17 grams daily, senna 1 tablet daily, and Lactobacillus rhamnosus for Culturelle 1 twice a day, levothyroxine sodium 125 mcg once a day, ascorbic acid 500 mg twice a day, and multivitamin 1 tablet once a day. REVIEW OF SYSTEMS: Unobtainable. PHYSICAL EXAMINATION: GENERAL: On arrival to the Emergency Room, the patient was pale, but no jaundice, cyanosis, or thyromegaly. No jugular venous distention, mild generalized anasarca. VITAL SIGNS: His heart rate was 111, blood pressure was 115/55, temperature was 103.8, respiratory rate was 38, and oxygen saturation was 90% on 12 liters of oxygen. HEAD, EYES, EARS, NOSE, AND THROAT: Showed normocephalic, atraumatic. NECK: Supple. HEART: Showed normal first and second heart sounds. No gallop, rub, or murmur. CHEST: Showed central trachea, equal bilateral chest expansion, air entry, vesicular sounds. No crepitation or rhonchi. ABDOMEN: Distended, soft, nontender. NEUROLOGIC: He was encephalopathic. He does open his eyes and drifts back to sleep. LABORATORY DATA: His lab work on arrival showed a white cell count of 28,200, hemoglobin 9.7, hematocrit 30, MCV 99, and platelet count of 168,000. His blood gases showed a pH of 7.49, pCO2 of 28, pO2 158, bicarbonate 21, oxygen saturation was 99% on FiO2 of 100%. His chemistry showed a serum sodium of 141, potassium 4, chloride 108, bicarbonate 23, anion gap of 10, BUN 30, creatinine 1.9, estimated GFR was 35 mL per minute, his glucose was 68, calcium was 9.4. Total bilirubin, AST, ALT, alkaline phosphatase were normal. Total protein 6.4, albumin was 1.4. His urinalysis showed the urine was pink, hazy with a pH of 6, specific gravity of 1.015, urine protein was 100 mg/dL. The urine was negative for glucose, ketones positive. There is large amount of blood, negative for nitrite. There was large amount of leukocyte esterase, more than 40 rbc's, more than 40 wbc's, and too many bacteria. His chest x-ray showed low lung volumes, bilateral interstitial thickening, patchy mid and bibasilar opacities, no pleural effusion, no pneumothorax. A left-sided PICC with tip projecting over the upper superior vena cava, mild gaseous distention of the stomach. ASSESSMENT AND PLAN: The patient was admitted basically with sepsis, likely due to urinary tract infection given the large amount of urine was drained from his urinary bladder. The patient was admitted with sepsis protocol, received at 30 mL per kilogram of saline. He was given Toradol and Tylenol and was started on Zyvox and Zosyn and was admitted to continue with IV antibiotic as well as IV fluid. MARIPOSA BENAVIDES MD DR: HOLLY/lewis JOB#: [id number] / [id number]
[2020-07-07 15:44] LABS: CALCIUM 8.5 mg/dL (8.5-10.1); CREATININE 1.6 mg/dL (0.7-1.3); GFR 42.8; POTASSIUM 4.6 mmol/L (3.5-5.1)
[2020-07-07 15:49] LABS: ALBUMIN 1.3 g/dL (3.4-5.0); ALBUMIN/GLOBULIN RATIO 0.3 (1.0-1.7); TOTAL BILIRUBIN 0.2 mg/dL (0.2-1.0); TOTAL PROTEIN 5.8 g/dL (6.4-8.2)
[2020-07-07] MEDS: DIVALPROEX SODIUM 250 MG TABLET.DR. PO SCH ×2 (16:23→20:30)
[2020-07-07] MEDS: ASCORBIC ACID 500 MG TABLET PO SCH (16:24)
[2020-07-07] MEDS: FERROUS SULFATE 325 MG TABLET. PO SCH (16:24)
[2020-07-07] MEDS: TAMSULOSIN 0.4 MG CAP.ER.24H. PO SCH (16:24)
[2020-07-07] MEDS: CALCIUM CARB/VIT D3 500/200 TABLET PO SCH (16:24)
[2020-07-07] MEDS: ASPIRIN CHEWABLE 81 MG TABLET. PO SCH (16:24)
[2020-07-07] MEDS: levETIRAcetam 500 MG TABLET PO SCH ×2 (16:24→20:30)
[2020-07-07] MEDS: OLANZapine 10 MG TABLET PO SCH (16:24)
[2020-07-07 16:29] LABS: HEMATOCRIT 29.1 % (39.0-53.0); HEMOGLOBIN 9.2 g/dL (13.0-17.5); RED BLOOD COUNT 2.86 x10^6/uL (4.30-5.70); RED CELL DISTRIBUTION WIDTH 15.5 % (11.5-14.5); WHITE BLOOD COUNT 28.3 x10^3/uL (4.0-11.0)
[2020-07-07] MEDS: PIPERACILLIN/TAZOBACTAM 2.25 GM in IV NORMAL SALINE 50ML 50 ML IV SCH (17:38)
[2020-07-07] MEDS: SIMVASTATIN 20 MG TABLET PO SCH (20:30)
[2020-07-07] MEDS: LACTOBACILLUS RHAMNOSUS GG 1 CAPSULE. PO SCH (20:30)
[2020-07-07] MEDS: ACETAMINOPHEN 325 MG TABLET PO PRN (20:30)
[2020-07-07] MEDS: BENZTROPINE MESYLATE 1 MG TABLET PO SCH (20:30)
[2020-07-08] MEDS: PIPERACILLIN/TAZOBACTAM 2.25 GM in IV NORMAL SALINE 50ML 50 ML IV SCH ×3 (00:08→13:17)
--- NOTE | 2020-07-08 04:30 | PN ---
DATE: 07/07/2020 SUBJECTIVE: The patient is resting, slightly propped up in bed, definitely more awake, alert, responding appropriately. PHYSICAL EXAMINATION: GENERAL: When I examined him, he looked pale, no jaundice, cyanosis, or thyromegaly. No jugular venous distention. No lower limb edema. VITAL SIGNS: His heart rate was 65, blood pressure of 98/63, temperature was 97.6, respiratory rate was 16, and oxygen saturation was 95% on 2 liters of oxygen. HEAD, EYES, EARS, NOSE, AND THROAT: Normocephalic, atraumatic. NECK: Supple. HEART: Showed normal first and second heart sounds. No gallop, rub or murmur. CHEST: Clear to auscultation. No crepitation or rhonchi. ABDOMEN: Distended, soft, nontender. NEUROLOGIC: He was awake, alert, responding appropriately. All cranial nerves are intact. He moves his upper extremities to much greater extent than lower extremities. His intake and output are incompletely recorded. LABORATORY DATA: His lab work as of yesterday, white cell count was 28,000, hemoglobin 10, hematocrit 30, MCV 99, and platelet count of 168,000. His chemistry showed a serum sodium 141, potassium 4, chloride 108, bicarbonate 23, anion gap of 10, BUN 30, creatinine 1.9, estimated GFR was 35 mL per minute. His glucose was 68. His urine culture showed growth of greater than 100,000 colony forming units per mL of Escherichia coli. Blood culture showed growth of gram-negative rods in 1/4 bottles, 2 sets drawn; the identification and sensitivity is still pending at the time of this dictation. ASSESSMENT AND PLAN: Urosepsis with growth of gram-negative rods. The patient has a multitude of other medical problems including benign prostatic hypertrophy with bladder outlet obstruction, seizure disorder, hypertension, hyperlipidemia, and hypothyroidism. MARIPOSA BENAVIDES MD DR: HOLLY/lewis JOB#: [id number] / [id number]
[2020-07-08 05:20] VITALS: BP 93/52
[2020-07-08] MEDS: HYDROCORTISONE SOD SUCC/PF 100 MG/2 ML VIAL. IVP SCH ×3 (06:12→20:12)
[2020-07-08] MEDS: LEVOTHYROXINE 125 MCG TABLET PO SCH (06:13)
[2020-07-08] MEDS: ACETAMINOPHEN 325 MG TABLET PO PRN (06:13)
--- NOTE | 2020-07-08 06:35 | NUR ---
Pt slept well through the night. He c/o pain in upper and lower abdomen; Tylenol given. Pt is alert and oriented. Speech is sometimes slurred or garbled, occasionally clear in short words. Pt can hold his cup briefly while taking medications; requires assistance with bringing food to his mouth. Pt is pleasant and cooperative. Will continue to monitor.
[2020-07-08 08:31] LABS: HEMATOCRIT 28.4 % (39.0-53.0); RED BLOOD COUNT 2.8 x10^6/uL (4.30-5.70); RED CELL DISTRIBUTION WIDTH 15.3 % (11.5-14.5); WHITE BLOOD COUNT 25.5 x10^3/uL (4.0-11.0)
[2020-07-08] MEDS: DOCUSATE SODIUM 100 MG CAPSULE PO SCH (08:40)
[2020-07-08] MEDS: MAGNESIUM HYDROXIDE 2,400 MG/30 ML ORAL.SUSP. PO SCH (08:40)
[2020-07-08] MEDS: levETIRAcetam 500 MG TABLET PO SCH ×2 (08:41→20:12)
[2020-07-08] MEDS: LACTOBACILLUS RHAMNOSUS GG 1 CAPSULE. PO SCH ×2 (08:41→20:11)
[2020-07-08] MEDS: DIVALPROEX SODIUM 250 MG TABLET.DR. PO SCH ×2 (08:41→20:12)
[2020-07-08] MEDS: CALCIUM CARB/VIT D3 500/200 TABLET PO SCH (08:41)
[2020-07-08] MEDS: ASCORBIC ACID 500 MG TABLET PO SCH ×2 (08:41→18:10)
[2020-07-08] MEDS: MULTIVITAMIN with MINERAL TABLET. PO SCH (08:41)
[2020-07-08] MEDS: TAMSULOSIN 0.4 MG CAP.ER.24H. PO SCH (08:41)
[2020-07-08] MEDS: ASPIRIN CHEWABLE 81 MG TABLET. PO SCH (08:41)
[2020-07-08 08:42] LABS: ALBUMIN 1.3 g/dL (3.4-5.0); ALBUMIN/GLOBULIN RATIO 0.3 (1.0-1.7); CALCIUM 8.3 mg/dL (8.5-10.1); CREATININE 1.6 mg/dL (0.7-1.3); GFR 42.8; POTASSIUM 4.5 mmol/L (3.5-5.1); TOTAL BILIRUBIN 0.1 mg/dL (0.2-1.0); TOTAL PROTEIN 5.4 g/dL (6.4-8.2)
[2020-07-08] MEDS: POLYETHYLENE GLYCOL 3350 17 GM PACKET. PO SCH (08:42)
[2020-07-08] MEDS: BENZTROPINE MESYLATE 1 MG TABLET PO SCH ×2 (08:42→20:11)
[2020-07-08] MEDS: FERROUS SULFATE 325 MG TABLET. PO SCH ×2 (08:42→18:10)
[2020-07-08] MEDS: METOPROLOL SUCC 24HR ER 25 MG TAB.ER.24H. PO SCH (08:44)
[2020-07-08] MEDS: OLANZapine 10 MG TABLET PO SCH (08:45)
[2020-07-08 10:56] VITALS: BP 116/94
[2020-07-08 15:04] VITALS: BP 107/67
[2020-07-08] MEDS: PIPERACILLIN/TAZOBACTAM 3.375 GM in IV NORMAL SALINE 50ML 50 ML IV SCH ×2 (18:09→23:58)
--- NOTE | 2020-07-08 19:06 | PN ---
DATE: 07/08/2020 SUBJECTIVE: The patient is resting, slightly propped up in bed, in no apparent distress. He is definitely awake, alert, in no apparent respiratory distress. On questioning him, he stated that he is feeling much better. He is awake, alert. He is now able to eat and drink, took his medication by mouth. PHYSICAL EXAMINATION: GENERAL: When I examined him, he looked pale, but no jaundice or cyanosis. No lymphadenopathy, no thyromegaly. No jugular venous distention. No lower limb edema. VITAL SIGNS: Her heart rate was 69, blood pressure was 116/94, temperature 97, respiratory rate was 20, and oxygen saturation was 92% on 2 liters of oxygen. HEAD, EYES, EARS, NOSE AND THROAT: Normocephalic, atraumatic. NECK: Supple. HEART: Showed normal first and second heart sounds. No gallop, rub or murmur. CHEST: Clear to auscultation. No crepitation or rhonchi. ABDOMEN: Distended, soft, nontender. He has an indwelling Cameron catheter. NEUROLOGIC: He has torticollis or wry neck; however, all his cranial nerves are intact. He moves his upper extremities to much greater extent than his lower extremities. His intake over the last 24 hours was 300, output was 1100. LABORATORY DATA: As of this morning, his white cell count is down to 25,500, hemoglobin 9, hematocrit 28, MCV 102 and platelet count of 182,000. His chemistry this morning showed a serum sodium 140, potassium 4.5, chloride 109, bicarbonate 21, anion gap of 10, BUN 41, creatinine 1.6, estimated GFR was 42 mL per minute. His glucose 136, calcium was 8.3. Total bilirubin, AST, ALT, alkaline phosphatase were normal. CK was 22. Total protein 5.4, albumin was 1.3. His TSH was 3.636. His urine culture has grown more than 100,000 colony forming units per mL of Escherichia coli that is ESBL sensitive to cefotaxime, ceftazidime, ___, Ertapenem, sensitive to meropenem, penicillin and tazobactam as well as trimethoprim and sulfamethoxazole and tetracycline, resistant to tobramycin. His blood culture has showed growth of gram-negative rods in 2 out of 2 bottles. PLAN: My plan is probably to switch him to perhaps meropenem. In fact, Ertapenem is probably the best option available and we will decide the further management accordingly. MARIPOSA BENAVIDES MD DR: HOLLY/lewis JOB#: [id number] / [id number]
[2020-07-08 19:38] VITALS: BP 90/61
[2020-07-08] MEDS: SIMVASTATIN 20 MG TABLET PO SCH (20:11)
[2020-07-08] MEDS: POTASSIUM CHLORIDE 20 MEQ TABLET.ER. PO SCH (20:12)
[2020-07-08 22:36] VITALS: BP 118/65
[2020-07-09 05:33] VITALS: BP 123/64
[2020-07-09] MEDS: HYDROCORTISONE SOD SUCC/PF 100 MG/2 ML VIAL. IVP SCH ×3 (05:56→23:04)
[2020-07-09] MEDS: LEVOTHYROXINE 125 MCG TABLET PO SCH (05:56)
[2020-07-09] MEDS: PIPERACILLIN/TAZOBACTAM 3.375 GM in IV NORMAL SALINE 50ML 50 ML IV SCH ×4 (05:56→23:05)
[2020-07-09] MEDS: ASCORBIC ACID 500 MG TABLET PO SCH ×2 (07:36→17:01)
[2020-07-09] MEDS: TAMSULOSIN 0.4 MG CAP.ER.24H. PO SCH (07:36)
[2020-07-09] MEDS: DIVALPROEX SODIUM 250 MG TABLET.DR. PO SCH ×2 (07:36→20:23)
[2020-07-09] MEDS: CALCIUM CARB/VIT D3 500/200 TABLET PO SCH (07:36)
[2020-07-09] MEDS: ASPIRIN CHEWABLE 81 MG TABLET. PO SCH (07:36)
[2020-07-09] MEDS: OLANZapine 10 MG TABLET PO SCH (07:36)
[2020-07-09] MEDS: DOCUSATE SODIUM 100 MG CAPSULE PO SCH (07:36)
[2020-07-09] MEDS: levETIRAcetam 500 MG TABLET PO SCH ×2 (07:37→20:23)
[2020-07-09] MEDS: POTASSIUM CHLORIDE 20 MEQ TABLET.ER. PO SCH ×2 (07:37→20:23)
[2020-07-09] MEDS: FERROUS SULFATE 325 MG TABLET. PO SCH ×2 (07:37→17:01)
[2020-07-09] MEDS: POLYETHYLENE GLYCOL 3350 17 GM PACKET. PO SCH (07:37)
[2020-07-09] MEDS: LACTOBACILLUS RHAMNOSUS GG 1 CAPSULE. PO SCH ×2 (07:37→20:23)
[2020-07-09] MEDS: MULTIVITAMIN with MINERAL TABLET. PO SCH (07:37)
[2020-07-09] MEDS: METOPROLOL SUCC 24HR ER 25 MG TAB.ER.24H. PO SCH (07:37)
[2020-07-09] MEDS: MAGNESIUM HYDROXIDE 2,400 MG/30 ML ORAL.SUSP. PO SCH (07:37)
[2020-07-09] MEDS: BENZTROPINE MESYLATE 1 MG TABLET PO SCH ×2 (07:38→20:23)
--- NOTE | 2020-07-09 08:40 | NUR ---
NURSING NOTE CRITICAL RESULT BLOOD CULTURE 4 OF 4 BOTTLES GRAM NEG RODS CALLED TO DR MAKAYLA WHEATLEY PLAN OF CARE. GORAN ONEAL.
[2020-07-09 11:55] VITALS: BP 101/70
[2020-07-09 15:23] VITALS: BP 106/68
[2020-07-09 16:07] LABS: CALCIUM 8.5 mg/dL (8.5-10.1); CREATININE 1.4 mg/dL (0.7-1.3); POTASSIUM 4.6 mmol/L (3.5-5.1)
[2020-07-09 16:14] LABS: HEMATOCRIT 29.7 % (39.0-53.0); HEMOGLOBIN 9.6 g/dL (13.0-17.5); RED BLOOD COUNT 2.96 x10^6/uL (4.30-5.70); RED CELL DISTRIBUTION WIDTH 15.3 % (11.5-14.5); WHITE BLOOD COUNT 19.9 x10^3/uL (4.0-11.0)
[2020-07-09] MEDS ORDERED: ERTA1VIA4 IJ (16:19)
--- NOTE | 2020-07-09 16:22 | DISCH ---
DISCHARGE ORDERS DISCHARGE DATE: Jul 09, 2020 FINAL DIAGNOSIS GRAM NEGATIVE SEPTECEMIA ACUTE KIDNEY INJURY BPH WITH URINE RETENTION CONDITION AT DISCHARGE: Stable SNF STAY <30 DAYS: Yes ORDERS Discharge Orders Discharge to [] SNU Certification [] Admit to: [] Labs: [] Diet: see below Activity: see below PT: [] OT: [] Other: [] FSBS: [] Oxygen: [] POST DISCHARGE ORDERS Activity Instructions for Disc: No restrictions, Resume previous activity Weight Bearing Status after Di: No restrictions, Non weight bearing Diet after Discharge: Regular CHECKS AFTER DISCHARGE Checks after discharge: Check blood press - daily, Check your Temp as needed DISCHARGE MEDICATION ORDERS Scheduled Ascorbic Acid (Ascorbic Acid), 500 MG PO BIDWMEALS, (Reported) Aspirin (Aspirin), 81 MG PO DAILY, (Reported) Benztropine Mesylate (Benztropine Mesylate), 1 TAB PO BID, (Reported) Bumetanide (Bumetanide), 2 MG PO DAILY, (Reported) Calcium Carbonate/Vitamin D3 (Calcium 500 + Vit D 200 Caplet), 2.5 EACH PO DAILY, (Reported) Divalproex Sodium (Divalproex Sodium), 2 TAB PO BID, (Reported) Docusate Sodium (Colace), 100 MG PO DAILY, (Reported) Ertapenem Sodium (Ertapenem), 1 GM IJ DAILY Ferrous Sulfate (Ferrous Sulfate), 325 MG PO BIDWMEALS, (Reported) Lactobacillus Rhamnosus Gg (Culturelle), 1 EACH PO BID, (Reported) Levetiracetam (Keppra), 500 MG PO BID, (Reported) Levothyroxine Sodium (Levothyroxine Sodium), 1 TAB PO DAILY06, (Reported) Magnesium Hydroxide (Milk Of Magnesia), 2,400 MG PO DAILY, (Reported) Metoprolol Succinate (Metoprolol Succinate ( Xl )), 1 TAB PO DAILY, (Reported) Multivitamin (Multi Vitamin Daily), 1 EACH PO DAILY, (Reported) Olanzapine (Zyprexa), 20 MG PO DAILY, (Reported) Polyethylene Glycol 3350 (Miralax), 17 GM PO DAILY, (Reported) Potassium Chloride (K-Tab ER), 20 MEQ PO BID, (Reported) Simvastatin (Zocor), 20 MG PO HS, (Reported) Tamsulosin Hcl (Flomax), 1 CAP PO DAILY, (Reported) Scheduled PRN Acetaminophen (Tylenol), 2 TAB PO PRN Q6HRS PRN for PAIN / TEMP, (Reported) Bisacodyl (Bisacodyl), 5 MG PO PRN DAILY PRN for CONSTIPATION, (Reported) Mag Hydrox/Aluminum Hyd/Simeth (Maalox Advanced Suspension), 15 ML PO PRN AFTMEALHC PRN for DYSPEPSIA, (Reported) Sennosides (Senna), 8.6 MG PO PRN DAILY PRN for constipation prevention , (Reported) Sodium Chloride (Saline Nasal [place]), 1 SPR NS PRN TID PRN for for dry nasal passages. , (Reported) Discontinued Medications Bumetanide (Bumetanide), 1 TAB PO BID, (Reported) Discontinued Reason: TREATMENT/EQUIPMENT ORDERS Adaptive Equipment Issued: None MARIPOSA BENAVIDES MD Jul 09, 2020 16:22
--- NOTE | 2020-07-09 17:02 | DS ---
DATE OF DISCHARGE: 07/09/2020 HOSPITAL COURSE: The patient is a 69-year-old male patient, a resident at [facility], who came to the Emergency Room with shortness of breath. Apparently, the entire history was gleaned from the EMS reported as the patient was not able to answer questions. He was found by the nursing staff to be breathing rapidly and shallowly. They checked his oxygen saturation, it was in the 70s. On arrival of the EMS, he was breathing rapidly, but then slowed down. They started bagging the patient and spontaneous increased his respiration back to around 40s with him on oxygen. His oxygen has improved. The patient was not reported to have any fever, has no known COVID-19 on arrival. He was extremely tachypneic. He has received multiple liters of fluid and was admitted for further evaluation and treatment. He was found to have urine retention, about 3 liters of fluid were drained from his bladder and an indwelling Cameron catheter was kept in. He was treated with IV antibiotic in the form of Zosyn and Zyvox given his impaired kidney function and he did very well. He is now awake, alert, able to communicate without any difficulty. He is now able to eat and drink and he is afebrile, hemodynamically stable. His kidney function has dramatically improved. In fact, his creatinine came down from 1.9-1.4. His white cell count came down from 28,000-19,000. His urine culture has grown more than 100,000 colony forming units per mL of Escherichia coli sensitive to ertapenem and blood cultures also showed gram-negative rods, identified there is also Escherichia coli that is extended-spectrum beta-lactamase. As he remained stable hemodynamically, a decision was made to discharge him back to [facility] to continue antibiotic in the form of ertapenem 1 gram IV for 7 more days. PHYSICAL EXAMINATION: GENERAL: When I saw him this afternoon, he looked well and was clearly in no apparent respiratory distress, pale. No jaundice, cyanosis or thyromegaly. No jugular venous distention. No lower limb edema. VITAL SIGNS: Her heart rate was 68, blood pressure was 106/68, temperature was 98, respiratory rate was 22 and oxygen saturation was 96% on 2 liters of oxygen. HEAD, EYES, EARS, NOSE AND THROAT: Showed normocephalic, atraumatic. NECK: Supple. HEART: Showed normal first and second heart sounds with no gallop or murmur. CHEST: Clear to auscultation. No crepitation or rhonchi. ABDOMEN: Distended, soft, nontender. NEUROLOGIC: He was awake, alert, responding appropriately. All cranial nerves are intact. He moves extremities without difficulty. He is actually mostly bedbound, chair bound. He has wry neck. He has an indwelling Cameron catheter that was put in the Emergency Room. LABORATORY DATA: His lab work today showed a white cell count of 19,900, hemoglobin 9.6, hematocrit 29.7, MCV 100, and platelet count 250,000. His chemistry showed a serum sodium 139, potassium 4.6, chloride 107, bicarbonate 24, anion gap of 8, BUN 37, creatinine 1.4, estimated GFR was 50 mL per minute, his glucose 150, calcium was 8.5. His urinalysis showed large amount of leukocyte esterase, more than 40 wbc's and as I stated, his urine culture showed growth of more than 100,000 colony-forming units per mL of Escherichia coli that is extended-spectrum beta lactamase. DISCHARGE MEDICATIONS: He was discharged to [facility] to continue on ertapenem 1 gram IV daily for 7 more days, acetaminophen 650 mg every 6 hours, ascorbic acid 500 mg daily, aspirin 81 mg once a day, benztropine mesylate 1 mg twice a day, bisacodyl 5 mg daily, bumetanide 2 mg daily, calcium carbonate, vitamin D3 two and a half each daily, divalproex 1000 mg twice a day, Colace 100 mg daily, ferrous sulfate 325 mg twice a day, lactobacillus rhamnosus 1 capsule twice a day, levetiracetam 500 mg twice a day, levothyroxine sodium 125 mcg once a day, magnesium hydroxide for Maalox 15 mL after meals p.r.n. for dyspepsia, magnesium hydroxide, milk of magnesia 30 mL p.o. daily p.r.n. for constipation, metoprolol succinate 25 mg once a day, multivitamin 1 tablet once a day, olanzapine for Zyprexa 20 mg daily, polyethylene glycol 17 grams daily, potassium chloride 20 mEq twice a day, Senna-S 1 tablet once a day, simvastatin for Zocor 20 mg at bedtime, saline nasal spray one spray to each nostril 2 times a day and tamsulosin for Flomax 0.4 mg daily. FINAL DISCHARGE DIAGNOSES: 1. Gram-negative septicemia, septic shock. 2. Acute kidney injury, resolved. Other medical problems include hypertension, gastroesophageal reflux disease, vitamin D deficiency, generalized anxiety, chronic constipation, age-related osteoporosis, benign prostatic hypertrophy, schizoaffective disorder, recurrent falls and difficulty ___. MARIPOSA BENAVIDES MD DR: HOLLY/lewis JOB#: [id number] / [id number]
[2020-07-09] MEDS: SIMVASTATIN 20 MG TABLET PO SCH (20:23)
[2020-07-09 21:26] VITALS: BP 124/73
[2020-07-09 23:10] VITALS: BP 132/83
[2020-07-10] MEDS: PIPERACILLIN/TAZOBACTAM 3.375 GM in IV NORMAL SALINE 50ML 50 ML IV SCH (06:00)
[2020-07-10] MEDS: LEVOTHYROXINE 125 MCG TABLET PO SCH (06:16)
[2020-07-10] MEDS: HYDROCORTISONE SOD SUCC/PF 100 MG/2 ML VIAL. IVP SCH (06:16)
[2020-07-10 06:32] VITALS: BP 132/72
[2020-07-10] MEDS: MAGNESIUM HYDROXIDE 2,400 MG/30 ML ORAL.SUSP. PO SCH (08:16)
[2020-07-10] MEDS: OLANZapine 10 MG TABLET PO SCH (08:16)
[2020-07-10] MEDS: DIVALPROEX SODIUM 250 MG TABLET.DR. PO SCH (08:17)
[2020-07-10] MEDS: FERROUS SULFATE 325 MG TABLET. PO SCH (08:17)
[2020-07-10] MEDS: CALCIUM CARB/VIT D3 500/200 TABLET PO SCH (08:17)
[2020-07-10 08:18] VITALS: BP 132/72
[2020-07-10] MEDS: ASCORBIC ACID 500 MG TABLET PO SCH (08:18)
[2020-07-10] MEDS: ASPIRIN CHEWABLE 81 MG TABLET. PO SCH (08:18)
[2020-07-10] MEDS: DOCUSATE SODIUM 100 MG CAPSULE PO SCH (08:18)
[2020-07-10] MEDS: METOPROLOL SUCC 24HR ER 25 MG TAB.ER.24H. PO SCH (08:18)
[2020-07-10] MEDS: TAMSULOSIN 0.4 MG CAP.ER.24H. PO SCH (08:18)
[2020-07-10] MEDS: levETIRAcetam 500 MG TABLET PO SCH (08:18)
[2020-07-10] MEDS: BENZTROPINE MESYLATE 1 MG TABLET PO SCH (08:19)
[2020-07-10] MEDS: LACTOBACILLUS RHAMNOSUS GG 1 CAPSULE. PO SCH (08:19)
[2020-07-10] MEDS: POTASSIUM CHLORIDE 20 MEQ TABLET.ER. PO SCH (08:19)
[2020-07-10] MEDS: MULTIVITAMIN with MINERAL TABLET. PO SCH (08:19)
[2020-07-10] MEDS: POLYETHYLENE GLYCOL 3350 17 GM PACKET. PO SCH (08:20)
--- NOTE | 2020-07-10 11:56 | NUR ---
PATIENT IS DISCHARGED TO [facility]. REPORT GIVEN TO NARENDRA ZIMMER. PATIENT LEFT ROOM VIA W/C ACCOMPANIED BY STAFF. PATIENT TAKEN TO FACILITY VIA [facility].
== END 2020-07-10 11:55 | DRG 871 ==
LOC: ER 12:28 → 1 SOUTH 17:30 → ER 18:03
PROVIDERS: ADMIT Internal Medicine; ATTEND Internal Medicine
DX: A41.50 Gram-negative sepsis, unspecified (principal); E43 Unspecified severe protein-calorie malnutrition; R65.21 Severe sepsis with septic shock; N13.8 Other obstructive and reflux uropathy; N17.9 Acute kidney failure, unspecified; N39.0 Urinary tract infection, site not specified; Z16.12 Extended spectrum beta lactamase (ESBL) resistance; E03.9 Hypothyroidism, unspecified; E55.9 Vitamin D deficiency, unspecified; E78.5 Hyperlipidemia, unspecified; F25.9 Schizoaffective disorder, unspecified; F41.1 Generalized anxiety disorder; G40.909 Epilepsy, unspecified, not intractable, without status epilepticus; I10 Essential (primary) hypertension; K21.9 Gastro-esophageal reflux disease without esophagitis; K59.09 Other constipation; M81.0 Age-related osteoporosis without current pathological fracture; N40.1 Benign prostatic hyperplasia with lower urinary tract symptoms; R29.6 Repeated falls; F31.9 Bipolar disorder, unspecified; B96.20 Unspecified Escherichia coli [E. coli] as the cause of diseases classified elsewhere; Z88.2 Allergy status to sulfonamides; Z68.29 Body mass index [BMI] 29.0-29.9, adult; R33.9 Retention of urine, unspecified
CPT/HCPCS: 36415; 36600; 51702; 71045; 80048; 80053; 81001; 82140; 82550; 82803; 82947; 83605; 84443; 84484; 85007; 85025; 85027; 87040; 87077; 87086; 87186; 87205; 93005; 96374; J1885; J2020; J2543; 99291-25; J7030